=== PATIENT | female | born 1965 | race Caucasian/White ===

== ENCOUNTER 2019-06-02 21:05 | Emergency (ER) | payer OTHER, SELFPAY ==
[2019-06-02] MEDS ORDERED: PANTOPRAZOLE 40 MG INJ ONE (22:27)
[2019-06-02] MEDS ORDERED: NA CHLORIDE 0.9% 1,000 ML ONE (22:27)
[2019-06-02] MEDS ORDERED: ONDANSETRON 4 MG/2 ML VIAL ONE ×2 (22:27→23:23)
[2019-06-02] MEDS ORDERED: MORPHINE 2 MG/ML SYR ONE (22:27)
--- NOTE | 2019-06-02 22:29 | RAD REPORT ---
EXAM DESCRIPTION: RAD - Chest Single View - 06/02/2019 10:04 pm CLINICAL HISTORY: epigastric pain Chest pain. COMPARISON: No comparisons FINDINGS: Portable technique limits examination quality. The lungs are grossly clear. The heart is normal in size. No displaced fractures. IMPRESSION: No acute intrathoracic process suspected.
[2019-06-02 22:38] LABS: Absolute Lymphocytes (CBC) 1.7 K/uL (0.7-4.9); Basophils % 0.7 % (0-1.3); Hematocrit 32.9 % (36.0-45.0); Lymphocytes % 21.7 % (15.3-44.8); MPV 9.9 fL (7.6-11.3); Protime INR 0.96
[2019-06-02] MEDS ORDERED: FENTANYL CITR 100 MCG/2 ML ONE (22:47)
[2019-06-02 22:52] LABS: ALT/SGPT 16 U/L (12-78); AST/SGOT 12 U/L (15-37); Albumin 3.3 g/dL (3.4-5.0); Alkaline Phosphatase 104 U/L (45-117); BUN Blood Urea Nitrogen 21 mg/dL (7-18); Bicarbonate 25 mmol/L (21-32); Bilirubin Direct < 0.1 mg/dL (0-0.2); Bilirubin Total 0.2 mg/dL (0.2-1.0); Glucose Level 120 mg/dL (74-106); Lipase 90 U/L (73-393); Potassium 3.9 mmol/L (3.5-5.1); Protein, Total 6.9 g/dL (6.4-8.2); Sodium Level 142 mmol/L (136-145); Troponin (Emerg Dept Use Only) < 0.02 ng/mL (0.0-0.045)
[2019-06-02] MEDS ORDERED: PROMETHAZINE INJ 25 MG/ML AMP ONE (23:14)
--- NOTE | 2019-06-03 02:05 | ER ---
Nurse's Notes [facility] Name: Kenia Recinos Age: 54 yrs Sex: Female : 1965 Arrival Date: 06/02/2019 Time: 21:07 Bed 3 Private MD: Diagnosis: Nausea and vomiting-intractable;Epigastric pain-intractable;Stomach mass Presentation: 06/01 21:13 Chief complaint: Patient states: Epigastric pain for a long time, years ago. I had a ca1 scope done on 2016 but they just said it was just a little irritation. But today, it started getting worse. Reports vomiting. Denies diarrhea and fever. Coronavirus screen: The patient has NOT traveled to a country currently being monitored by the CDC within the last 14 days. The patient has NOT had contact with any known and/or suspected case of coronavirus. Ebola Screen: Patient negative for fever greater than or equal to 101.5 degrees Fahrenheit, and additional compatible Ebola Virus Disease symptoms Patient denies exposure to infectious person. Patient denies travel to an Ebola-affected area in the 21 days before illness onset. No symptoms or risks identified at this time. Initial Sepsis Screen: Does the patient meet any 2 criteria? No. Patient's initial sepsis screen is negative. Does the patient have a suspected source of infection? No. Patient's initial sepsis screen is negative. Risk Assessment: Do you want to hurt yourself or someone else? Patient reports no desire to harm self or others. Onset of symptoms was June 02, 2019. 21:13 Method Of Arrival: Ambulatory ca1 21:13 Acuity: JAMEEL 3 ca1 Historical: - Allergies: 21:17 Biaxin; ca1 - PSHx: 21:17 Cholecystectomy; Hysterectomy; Gastric Bypass; Knee surgery; ca1 - Immunization history:: Adult Immunizations up to date, Flu vaccine is not up to date. - Social history:: Smoking status: Patient denies any tobacco usage or history of. Screenin/18 03:00 Abuse screen: Denies threats or abuse. Denies injuries from another. Nutritional rv screening: No deficits noted. Tuberculosis screening: No symptoms or risk factors identified. 03:00 Fall Risk None identified. rv Assessment: 06/01 21:30 General: Appears in no apparent distress. uncomfortable, Behavior is calm, cooperative, jb4 appropriate for age. Pain: Complains of pain in epigastric area and left upper quadrant Pain does not radiate. Pain currently is 10 out of 10 on a pain scale. Quality of pain is described as stabbing, Pain began 1 hour ago. Is continuous, Alleviated by laying supine Aggravated by sitting. Neuro: Level of Consciousness is awake, alert, obeys commands, Oriented to person, place, time, situation. Cardiovascular: Patient's skin is warm and dry. Respiratory: Airway is patent Respiratory effort is even, unlabored, Respiratory pattern is regular, symmetrical. GI: Abdomen is round non-distended, Bowel sounds present X 4 quads. Reports upper abdominal pain, nausea. : No signs and/or symptoms were reported regarding the genitourinary system. EENT: No signs and/or symptoms were reported regarding the EENT system. Derm: Skin is intact, Skin is pink, warm \T\ dry. Musculoskeletal: Circulation, motion, and sensation intact. Range of motion: intact in all extremities. 22:40 Reassessment: Patient appears in no apparent distress at this time. Patient and/or jb4 family updated on plan of care and expected duration. Pain level reassessed. Patient is alert, oriented x 3, equal unlabored respirations, skin warm/dry/pink. Pt reports an immediate increase in pain with morphine administration, and worsening of nausea. Provider notified, see MAR for orders. 23:30 Reassessment: Patient appears in no apparent distress at this time. Patient and/or jb4 family updated on plan of care and expected duration. Pain level reassessed. Patient is alert, oriented x 3, equal unlabored respirations, skin warm/dry/pink. Pt reports nausea and pain is unchanged, provider notified, see MAR for orders. 06/02 00:30 Reassessment: Patient appears in no apparent distress at this time. Patient and/or jb4 family updated on plan of care and expected duration. Pain level reassessed. Patient is alert, oriented x 3, equal unlabored respirations, skin warm/dry/pink. 01:30 Reassessment: Patient appears in no apparent distress at this time. Patient and/or jb4 family updated on plan of care and expected duration. Pain level reassessed. Patient is alert, oriented x 3, equal unlabored respirations, skin warm/dry/pink. 02:27 Reassessment: Patient appears in no apparent distress at this time. Patient and/or jb4 family updated on plan of care and expected duration. Pain level reassessed. Pt is resting in bed with eyes closed, respirations are even and unlabored, no s/s of distress noted. 02:45 Reassessment: Report called to Wilma Francis RN \T\ [facility]. jb4 Vital Signs: 06/01 21:13 BP 126 / 83; Pulse 84; Resp 17 S; Temp 98.3(TE); Pulse Ox 99% on R/A; Weight 92.53 kg ca1 (R); Height 5 ft. 7 in. (170.18 cm) (R); 22:00 BP 129 / 89; Pulse 72; Resp 16; Pulse Ox 100% on R/A; rv 22:30 BP 126 / 89; Pulse 67; Resp 16; Pulse Ox 100% on R/A; rv 22:45 BP 154 / 93; Pulse 89; Resp 18; Pulse Ox 100% on R/A; rv 23:32 BP 117 / 76; Pulse 71; Resp 16; Pulse Ox 100% ; Pain 10/10; jb4 18 00:50 BP 111 / 65; Pulse 66; Resp 16; Pulse Ox 100% on R/A; jb4 02:00 BP 128 / 80; Pulse 66; Resp 16; Pulse Ox 99% on R/A; jb4 03:00 BP 123 / 72; Pulse 63; Resp 16; Pulse Ox 100% ; rv 06/01 21:13 Body Mass Index 31.95 (92.53 kg, 170.18 cm) ca1 ED Course: 06/01 21:07 Patient arrived in ED. ag3 21:16 Triage completed. ca1 21:17 Arm band placed on right wrist. ca1 21:24 Stoney Xie PA is PHCP. cp 21:24 Jaime Carrasquillo MD is Attending Physician. cp 21:32 Malachi Barksdale, AURELIANO is Primary Nurse. jb4 22:05 XRAY Chest (1 view) In Process Unspecified. EDMS 22:14 Inserted saline lock: 20 gauge in left antecubital area, using aseptic technique. Blood ar5 collected. 23:28 Radiology exam delayed due to Patient unable to travel to [place] for exam - nauseous. kw1 06/02 00:18 CT Abd/Pelvis - IV Contrast Only In Process Unspecified. EDMS 03:00 Patient has correct armband on for positive identification. Pulse ox on. NIBP on. rv 04:13 No provider procedures requiring assistance completed. IV is patent, with fluids rv infusing freely, with good blood return, Patient transferred, IV remains in place. Administered Medications: 06/01 22:35 Drug: ProTONIX 40 mg Route: IVP; Site: left antecubital; jb4 23:00 Follow up: Response: No adverse reaction jb4 22:36 Drug: NS 0.9% 1000 ml Route: IV; Rate: 1000 ml/hr; Site: left antecubital; jb4 23:30 Follow up: Response: No adverse reaction; IV Status: Completed infusion; IV Intake: jb4 1000ml 22:36 Drug: Zofran (Ondansetron) 4 mg Route: IVP; Site: left antecubital; jb4 23:30 Follow up: Response: No adverse reaction; Nausea unchanged jb4 22:38 Drug: morphine 2 mg Route: IVP; Site: left antecubital; jb4 22:40 Follow up: Response: Pt reported sever increase in pain after medication jb4 administration. Provider notified, see [facility] for orders. 22:47 Drug: fentaNYL (PF) 25 mcg {Note: Rass score 0.} Route: IVP; Site: left antecubital; jb4 23:30 Follow up: Response: No adverse reaction; Pain is unchanged, physician notified jb4 23:32 Drug: Phenergan 25 mg {Note: Added to remaining IV fluids per providers orders..} jb4 Route: IVP; Site: right antecubital; 06/02 00:00 Follow up: Response: No adverse reaction; Nausea is decreased jb4 06/01 23:35 Drug: Zofran (Ondansetron) 4 mg Route: IVP; Site: right antecubital; jb4 06/02 00:00 Follow up: Response: No adverse reaction; Nausea is decreased jb4 06/01 23:38 Drug: fentaNYL (PF) 25 mcg {Note: Rass score 0.} Route: IVP; Site: right antecubital; jb4 06/02 00:00 Follow up: Response: No adverse reaction; Pain is decreased; RASS: Alert and Calm (0) jb4 Intake: 06/01 23:30 IV: 1000ml; Total: 1000ml. jb4 Outcome: 03/18 02:02 ER care complete, transfer ordered by MD. ignacio 04:14 Patient left the ED. jb4 Signatures: Dispatcher [employer] EDMS Stoney Xie PA PA cp Bryson, James RN RN jb4 Hortensia Fernández kw1 Jarred Muro RN RN Clara Ortez3 Yessy Garrison5 Silvia Hurtado RN RN ca1
--- NOTE | 2019-06-03 02:05 | EDPHYS ---
Physician Documentation [facility] Name: Kenia Recinos Age: 54 yrs Sex: Female : 1965 Arrival Date: 06/02/2019 Time: 21:07 Bed 3 Private MD: ED Physician Jaime Carrasquillo HPI: 06/01 21:45 This 54 yrs old Female presents to ER via Ambulatory with complaints of cp Vomiting. 21:45 The patient presents with abdominal pain in the epigastric area. cp 21:45 Onset: The symptoms/episode began/occurred 3 year(s) ago, and became worse today. The cp patient presents to the emergency department with nausea, with "dry heaves", vomiting, that is continuous. Onset: The symptoms/episode began/occurred today. Possible causes: unknown. Historical: - Allergies: : Biaxin; ca1 - PSHx: 21:17 Cholecystectomy; Hysterectomy; Gastric Bypass; Knee surgery; ca1 - Immunization history:: Adult Immunizations up to date, Flu vaccine is not up to date. - Social history:: Smoking status: Patient denies any tobacco usage or history of. ROS: 21:55 Constitutional: Positive for poor PO intake, Negative for body aches, chills, fever. cp 21:55 Eyes: Negative for injury, pain, redness, and discharge. cp 21:55 ENT: Negative for drainage from ear(s), ear pain, sore throat, difficulty swallowing, difficulty handling secretions. 21:55 Cardiovascular: Negative for chest pain, palpitations. 21:55 Respiratory: Negative for cough, shortness of breath, wheezing. 21:55 Abdomen/GI: Positive for abdominal pain, nausea and vomiting, Negative for hematemesis, black/tarry stool, rectal bleeding. 21:55 Back: Negative for pain at rest, pain with movement, radiated pain. 21:55 : Negative for urinary symptoms. 21:55 Skin: Negative for rash. 21:55 Neuro: Negative for altered mental status, headache, syncope, weakness. 21:55 All other systems are negative. Exam: 21:30 ECG was reviewed by the Attending Physician. cp 22:00 Constitutional: The patient appears alert, awake, non-diaphoretic, non-toxic, well cp developed, well nourished, in obvious pain, uncomfortable. 22:00 Head/Face: Normocephalic, atraumatic. cp 22:00 Eyes: Periorbital structures: appear normal, Conjunctiva: normal, no exudate, no injection, Sclera: no appreciated abnormality, Lids and lashes: appear normal, bilaterally. 22:00 ENT: External ear(s): are unremarkable, Nose: is normal, Mouth: Lips: moist, Oral mucosa: pink and intact, moist, Posterior pharynx: is normal, airway is patent, no erythema, no exudate. 22:00 Chest/axilla: Inspection: normal, Palpation: is normal, no crepitus, no tenderness. 22:00 Cardiovascular: Rate: normal, Rhythm: regular, Edema: is not appreciated, JVD: is not appreciated. 22:00 Respiratory: the patient does not display signs of respiratory distress, Respirations: normal, no use of accessory muscles, no retractions, no splinting, no tachypnea, labored breathing, is not present, Breath sounds: are clear throughout, no decreased breath sounds, no stridor, no wheezing. 22:00 Abdomen/GI: Inspection: abdomen appears normal, Bowel sounds: active, all quadrants, Palpation: soft, in all quadrants, severe abdominal tenderness, in the epigastric area, rebound tenderness, is not appreciated, voluntary guarding, is elicited in the epigastric area. 22:00 Back: pain, is absent. 22:00 Skin: no rash present. 22:00 Neuro: Orientation: to person, place \\T\\ time. Mentation: is normal. Vital Signs: 21:13 BP 126 / 83; Pulse 84; Resp 17 S; Temp 98.3(TE); Pulse Ox 99% on R/A; Weight 92.53 kg ca1 (R); Height 5 ft. 7 in. (170.18 cm) (R); 22:00 BP 129 / 89; Pulse 72; Resp 16; Pulse Ox 100% on R/A; rv 22:30 BP 126 / 89; Pulse 67; Resp 16; Pulse Ox 100% on R/A; rv 22:45 BP 154 / 93; Pulse 89; Resp 18; Pulse Ox 100% on R/A; rv 23:32 BP 117 / 76; Pulse 71; Resp 16; Pulse Ox 100% ; Pain 10/10; jb4 06/02 00:50 BP 111 / 65; Pulse 66; Resp 16; Pulse Ox 100% on R/A; jb4 02:00 BP 128 / 80; Pulse 66; Resp 16; Pulse Ox 99% on R/A; jb4 03:00 BP 123 / 72; Pulse 63; Resp 16; Pulse Ox 100% ; rv 06/01 21:13 Body Mass Index 31.95 (92.53 kg, 170.18 cm) ca1 MDM: 06/01 21:32 Patient medically screened. 06/02 01:30 Data reviewed: vital signs, nurses notes, lab test result(s), radiologic studies, CT cp scan, plain films, I have discussed the patient's presentation/case with the attending Emergency Department Physician;. 01:30 Test interpretation: by ED physician or midlevel provider: ECG. Response to treatment: the patient's symptoms have markedly improved after treatment. 06/01 21:41 Order name: Basic Metabolic Panel; Complete Time: 23:19 06/02 00:03 Interpretation: Normal except: CL 110; GLUC 120; BUN 21; GFR 72. 06/01 21:41 Order name: CBC with Diff; Complete Time: 23:19 06/02 00:03 Interpretation: Normal except: HGB 10.9; HCT 32.9; MCV 82.2; MCH 27.2. 06/01 21:41 Order name: LFT's; Complete Time: 23:19 06/02 00:03 Interpretation: Normal except: AST 12; ALB 3.3; GLOB 3.6; A/G 0.9. 06/01 21:41 Order name: Magnesium; Complete Time: 23:19 06/01 21:41 Order name: PT-INR; Complete Time: 23:19 06/01 21:41 Order name: Troponin (emerg Dept Use Only); Complete Time: 23:19 06/02 00:04 Interpretation: Within normal limits: TROPED < 0.02. 06/01 21:41 Order name: XRAY Chest (1 view); Complete Time: 23:19 06/02 00:04 Interpretation: Report review. 06/01 21:41 Order name: Lipase; Complete Time: 23:19 06/02 00:05 Interpretation: Reviewed. 06/01 21:43 Order name: CT Abd/Pelvis - IV Contrast Only 06/01 21:41 Order name: EKG; Complete Time: 21:41 cp 06/01 21:41 Order name: Cardiac monitoring; Complete Time: 21:49 cp 06/01 21:41 Order name: EKG - Nurse/Tech; Complete Time: 21:49 cp 06/01 21:41 Order name: IV Saline Lock; Complete Time: 22:15 cp 06/01 21:41 Order name: Labs collected and sent; Complete Time: 22:15 cp 06/01 21:41 Order name: O2 Per Protocol; Complete Time: 21:49 cp 06/01 21:41 Order name: O2 Sat Monitoring; Complete Time: 21:49 cp EC/17 21:30 Rate is 73 beats/min. Rhythm is regular. WI interval is normal. QRS interval is normal. cp QT interval is normal. T waves are Flattened in lead aVL. Interpreted by me. Reviewed by me. Administered Medications: 22:35 Drug: ProTONIX 40 mg Route: IVP; Site: left antecubital; [facility] 23:00 Follow up: Response: No adverse reaction [facility] 22:36 Drug: NS 0.9% 1000 ml Route: IV; Rate: 1000 ml/hr; Site: left antecubital; [facility] 23:30 Follow up: Response: No adverse reaction; IV Status: Completed infusion; IV Intake: jb4 1000ml 22:36 Drug: Zofran (Ondansetron) 4 mg Route: IVP; Site: left antecubital; [facility] 23:30 Follow up: Response: No adverse reaction; Nausea unchanged jb4 22:38 Drug: morphine 2 mg Route: IVP; Site: left antecubital; [facility] 22:40 Follow up: Response: Pt reported sever increase in pain after medication jb4 administration. Provider notified, see MAR for orders. 22:47 Drug: fentaNYL (PF) 25 mcg {Note: Rass score 0.} Route: IVP; Site: left antecubital; [facility] 23:30 Follow up: Response: No adverse reaction; Pain is unchanged, physician notified [facility] 23:32 Drug: Phenergan 25 mg {Note: Added to remaining IV fluids per providers orders..} jb4 Route: IVP; Site: right antecubital; 06/02 00:00 Follow up: Response: No adverse reaction; Nausea is decreased [facility] 06/01 23:35 Drug: Zofran (Ondansetron) 4 mg Route: IVP; Site: right antecubital; 4 06/02 00:00 Follow up: Response: No adverse reaction; Nausea is decreased [facility] 06/01 23:38 Drug: fentaNYL (PF) 25 mcg {Note: Rass score 0.} Route: IVP; Site: right antecubital; 4 06/02 00:00 Follow up: Response: No adverse reaction; Pain is decreased; RASS: Alert and Calm (0) 4 Disposition: 05:02 Co-signature as Attending Physician, Jaime Carrasquillo MD I agree with the assessment and 4 plan of care. Disposition: 06/03/19 02:02 Transfer ordered to [facility]. Diagnosis are Nausea and vomiting - intractable, Epigastric pain - intractable, Stomach mass. - Reason for transfer: Higher level of care. - Accepting physician is DR Mosley. - Condition is Stable. - Problem is new. - Symptoms have improved. Signatures: Dispatcher [employer] EDMS Stoney Xie PA PA cp Malachi Barksdale, RN RN 4 Jaime Carrasquillo MD MD 4 Silvia Hurtado RN RN ca1 Corrections: (The following items were deleted from the chart) 04:14 02:02 06/03/2019 02:02 Transfer ordered to [facility]. jb4 Diagnosis is Nausea and vomiting - intractable; Epigastric pain - intractable; Stomach mass. Reason for transfer: Higher level of care. Accepting physician is DR Mosley. Condition is Stable. Problem is new. Symptoms have improved. cp
[2019-06-03 04:21] VITALS: TEMP 98.3
[2019-06-03 04:31] VITALS: BP 123/72; O2SAT 100
--- NOTE | 2019-06-03 08:49 | EKG ---
Test Date: 2019-06-02 Test Time: 21:28:15 [employer] Rib[employer] Machine Operator: COLLIN MEASUREMENT RESULTS: Intervals: Rate: 73 MI: 124 QRSD: 84 QT: 400 QTc: 440 [place]: P: 54 MI: 124 QRS: 38 T: 63 INTERPRETIVE STATEMENTS: Normal sinus rhythm Normal ECG No previous ECG available for comparison Electronically Signed On 06-03-19 08:48:27 CDT by Jed Dillon
--- NOTE | 2019-06-03 11:46 | RAD REPORT ---
EXAM DESCRIPTION: CT abdomen and pelvis with IV contrast CLINICAL HISTORY: 54-year-old female with epigastric pain, vomiting, prior cholecystectomy, hysterec ilsa and gastric bypass surgery. TECHNIQUE: Axial CT imaging of the abdomen and pelvis was performed following the administration of intravenous contrast.. Sagittal and coronal reconstructed images were then performed. The CT stud y is performed according to ALARA (as low as reasonably achievable) or ALARA/IMAGE GENTLY, with autom atic adjustment of mA and/or kV according to patient size. Performed on: 06/02/2019 11:52 PM. COMPARISON: None FINDINGS: Lung bases: The lung bases are clear. There is eventration of the right hemidiaphragm. Liver: The liver is enlarged and measures approximately 21 cm in craniocaudal dimension. No focal hep atic abnormalities are identified. Liver attenuation is within normal limits. Spleen: The spleen is normal is size, configuration and attenuation. Gallbladder and bile duct: The gallbladder is surgically absent. There is no biliary ductal dilatat ion. Pancreas: The pancreas is grossly normal in size and configuration. Adrenal Glands: The adrenal glands are normal in size and configuration. Kidneys: The kidneys are normal in size and configuration. There is no evidence of hydronephrosis. Th ere is no evidence of nephrolithiasis. No definite solid or cystic renal mass lesions are identified. Stomach: There are postsurgical changes of the stomach consistent with prior gastric bypass surgery. There is a large, slightly heterogeneous relatively well-circumscribed soft tissue mass in the region of the body of the stomach measuring approximately 12.9 x 7.3 x 10.5 cm suspicious for a neoplasm hess ch as a gastrointestinal stromal tumor or other gastric carcinoma. A leiomyoma is a consideration. Th ere is no definite hiatal hernia. Bowel: The bowel gas pattern is non specific and non obstructive. Appendix: The appendix is normal. Free air: There is no evidence of free air. Free fluid: There is no evidence of free fluid. Vasculature: The aorta is normal in caliber and contour. The inferior vena cava is grossly unremarkab le. Lymphadenopathy: No pathologic lymphadenopathy is identified. Bladder: The bladder is well distended and smooth in contour. Reproductive: The uterus is surgically absent. Bones: No acute osseous abnormalities are identified. Soft tissues: No focal soft tissue abnormalities are identified. IMPRESSION: 1. Large, slightly heterogeneous relatively well circumscribed soft tissue mass in the r egion of the body of the stomach concerning for a gastric neoplasm such as a gastrointestinal stromal tumor, gastric carcinoma, lymphoma or leiomyoma. 2. Prior gastric bypass surgery, cholecystectomy and hysterectomy. 3. Hepatomegaly with eventration of the right hemidiaphragm. These findings were discussed with SURENDRA Mendez on 06/03/2019 at 12: 21 AM central time Electronically signed by: Kaycee Cuevas DO 06/03/2019 12:33 AM CDT Due to temporary technical issues with the PACS/Fluency reporting system, reports are being signed by the in house radiologist as a courtesy to ensure prompt reporting. The interpreting radiologist is f ully responsible for the content of the report.
== END 2019-06-03 04:14 | disposition short-term general hospital (02) ==
LOC: ER 21:05
DX: R10.13 Epigastric pain (principal); K31.9 Disease of stomach and duodenum, unspecified; Z88.6 Allergy status to analgesic agent
CPT/HCPCS: 96361; 93005; 85025; 80048; 36415; 83735; 85610; 80076; 84484; 83690; 74177; 71045; 96375; 96374; 99284; Q9967; J2550; C9113; J3010; J2270; J7030; J2405 ×2

== ENCOUNTER 2021-02-01 06:10 | Observation (INO) | payer OTHER ==
--- NOTE | 2021-01-27 09:26 | RAD REPORT ---
EXAM DESCRIPTION: RAD - Chest Pa And Lat (2 Views) - 01/27/2021 8:55 am CLINICAL HISTORY: Pre Op pending knee replacement COMPARISON: May 2019 TECHNIQUE: Frontal and lateral views of the chest were obtained. FINDINGS: The lungs are clear. Interstitial pattern matches the comparison study. No new hilar mass or lymphadenopathy seen. Heart size is normal and central vasculature is within normal limits. No p leural effusion or pneumothorax seen. No acute bony finding noted. No aortic abnormality. IMPRESSION: No acute cardiopulmonary process. No significant change from comparison study.
[2021-01-27 09:45] LABS: Protime INR 0.89
[2021-01-27 09:57] LABS: Potassium 4.4 mmol/L (3.5-5.1)
[2021-01-27 16:50] LABS: Absolute Lymphocytes (CBC) 1.4 K/uL (0.7-4.9); Basophils % 1.1 % (0-1.3); Hematocrit 41.1 % (36.0-45.0); Lymphocytes % 36.5 % (15.3-44.8); MPV 9.7 fL (7.6-11.3); RBC Red Blood Cell Count 4.64 M/uL (3.86-4.86)
[2021-02-01] MEDS ORDERED: Ringers Lactate 1,000 ML IV ONE ×2 (06:26→08:17)
[2021-02-01] MEDS ORDERED: CEFAZOLIN/SWI 2gm 2 GM/20 ML SYR ONE (06:26)
[2021-02-01] MEDS ORDERED: propofoL 200 MG/20 ML VIAL IV ONE (06:29)
[2021-02-01] MEDS ORDERED: KETOROLAC 30 MG/ML INJ ONE (06:29)
[2021-02-01] MEDS ORDERED: LIDOCAINE 2% MPF 5 ML VIAL ONE (06:29)
[2021-02-01] MEDS ORDERED: ROCURONIUM 50 MG/5 ML VIAL IV ONE (06:29)
[2021-02-01] MEDS ORDERED: dexAMETHasone 10 MG/ML VIAL ONE ×2 (06:29→08:52)
[2021-02-01] MEDS ORDERED: KETAMINE HCL 500 MG/5 ML VIAL ONE (06:29)
[2021-02-01] MEDS ORDERED: ONDANSETRON 4 MG/2 ML VIAL ONE (06:30)
[2021-02-01] MEDS ORDERED: GABAPENTIN 100 MG CAP ONE (06:44)
[2021-02-01] MEDS ORDERED: Oxycodone HCl/Acetaminophen 1 TAB TAB ONE (06:45)
[2021-02-01] MEDS ORDERED: ACETAMINOPHEN 500 MG TAB ONE (06:45)
[2021-02-01] MEDS ORDERED: BUPIVACA 0.5%/EPI 0.0005%/PF 30 ML VIAL ONE (07:09)
[2021-02-01] MEDS ORDERED: TRANEXAMIC ACID 1,000 MG in NA CHLORIDE 0.9% 50 ML IV ONE (08:00)
[2021-02-01] MEDS ORDERED: LIDOCAINE 1% MPF 5 ML VIAL ONE (08:52)
[2021-02-01] MEDS ORDERED: MIDAZOLAM HCL 2 MG/2 ML INJ ONE (08:52)
[2021-02-01] MEDS ORDERED: FENTANYL CITR 100 MCG/2 ML ONE (08:52)
[2021-02-01] MEDS ORDERED: BUPIVACAINE 0.25% PF 30 ML VIAL ONE (08:52)
[2021-02-01] MEDS ORDERED: HYDROMORPHONE HCL 1 MG/ML INJ ONE (08:52)
[2021-02-01] MEDS ORDERED: NS 0.9% VIAL 10 ML ONE (08:52)
[2021-02-01] MEDS ORDERED: NEOSTIGMINE 1 MG/ML -5 ML ONE (09:27)
[2021-02-01] MEDS ORDERED: GLYCOPYRROLATE 0.2 MG/ML SYR ONE (09:27)
--- NOTE | 2021-02-01 10:26 | P.BOP ---
Preoperative diagnosis: left knee osteoarthritis Postoperative diagnosis: same Primary procedure: left total knee arthroplasty Assistant Professor Of English: NONE,NONE Estimated blood loss: 20 cc Specimen: left knee bone remnants Findings: see dictation Anesthesia: General Complications: None Implants: [employer] Annette Persona 10 CR femur, F stemmed tibia, 10 CR poly, 32 patella Fluids & blood products: per anesthesia record; TT: 90 mins @ 300 mmHg Transferred to: Recovery Room Condition: Good
[2021-02-01] MEDS ORDERED: ONDANSETRON 4 MG/2 ML VIAL IV PRN (10:27)
[2021-02-01] MEDS ORDERED: DOCUSATE NA 100 MG CAP PO PRN (10:27)
[2021-02-01] MEDS ORDERED: TRAMADOL HCL 50 MG TAB PO PRN (10:30)
--- NOTE | 2021-02-01 10:56 | RAD REPORT ---
EXAM DESCRIPTION: RAD - Knee Left 2 View - 02/01/2021 10:47 am CLINICAL HISTORY: Post Op COMPARISON: No comparisons FINDINGS: Left knee arthroplasty. Small volume of fluid within the knee joint which is not unexpecte d. Surgical clips overlie the knee. No evidence of immediate hardware complications. IMPRESSION: Left total knee arthroplasty without evidence of immediate hardware complications.
[2021-02-01 11:05] LABS: Hematocrit 39.3 % (36.0-45.0)
--- OUTSIDE RECORDS SUMMARY | 2021-02-01 11:20 | XMS REPORT | Continuity of Care Document ---
:1965 Author Organization [facility] t Address [address] [place] [address] Care Team Providers Name Role Phone Vj Olson MD, [place] Primary Care Physician [phone] Sylvie Velazquez Attending Clinician Unavailable Bren CERON Attending Clinician Unavailable Physician, Primary or Family Admitting Clinician UnavailANA MARIA Merino Admitting Clinician Unavailable Payers Payer Name Policy Type Policy Number Effective Date Expiration Date S ource Problems Condition Condition Condition Status Onset Resolution Last Treating Co mments Source Name Details Category Date Date Treatment Clinician Date Acute Acute Disease Active [facility] upper GI [facility] GI 3-24 [facility] bleed bleed [facility] 00 Center Acute on Acute on Disease Active [facility] chronic [facility] - blood loss blood loss 00:00: Me dical anemia anemia 00 Center Severe Severe Disease Active [facility] protein-ca protein-ca 3-24 [facility] - maciej maciej 00:00: Medical malnutriti malnutriti 00 Ce nter on ([place]: on ([place]: less than less than 60% of 60% of standard standard weight) weight) Gastric Gastric Disease Active [facility] mass mass 3-18 [facility] - 00:[facility]: Medical 00 Center Normochrom Normochrom Disease Active [facility] ic ic 3-18 [facility] - normocytic normocytic 00:00: Me dical anemia anemia 00 Center Allergies, Adverse Reactions, Alerts Allergy Allergy Status Severity Reaction(s) Onset Inactive Treating Comm ents Source Name Type Date Date Clinician No Known DA Active [facility]08 [facility] 00:[facility]: [address] No Known DA Active [facility]ie 12[facility]08 [facility] 00:[facility]: [address] Clarithr Propensi Active Hiv Pt stated [facility] omycin ty to 18 she gets [facility] - adverse 00:00: blotches Medical reaction 00 and they Center s itch CLARITHR Allergy Active Hives [facility] OMYCIN 3-18 [facility] - 00:[facility]: Medical Center BIOXAN Adverse Active Info Not [facility] Reaction Available [facility] Family History Family Member Diagnosis Comments Start Date Stop Date Source Natural father Cancer [facility] Natural mother Hypertension [facility] Natural mother Kidney disease [facility] Natural mother Stroke [facility] Social History Social Habit Start Date Stop Date Quantity Comments Source History SDOH [facility] - Alcohol Frequency Medical Center History SDOH [facility] - Alcohol Std Drinks Medica Center History SDOH [facility] - Alcohol Binge Medical Chyna ter Alcohol intake 2019-06-10 2019-06-10 [facility]:00 of alcohol Medical Center (finding) Tobacco use and 2019-06-03 2019-06-[address] [facility] - exposure 00:00:00 00:00:00 [facility] Alcohol Comment 2019-06-03 2019-06-03 social drinker [facility]00 Medical Center Sex Assigned At [address] [facility] - 00:00:00 00:00:00 Medical Center Smoking Status Start Date Stop Date Source Never sm[facility] ed[facility] Center Medications Ordered Filled Start Stop Current Ordering Indication Dosage Frequency Signature Comments Components Source Medication Medication Date Date Medication? Clinician (SIG) Name Name traMADoL 0 Yes 50mg Take [address] (ULTRAM) 50 2-28 by mouth 3 [facility] - mg tablet 00:00: (three) Medic al 00 times Center daily as needed for Pain. phentermine 2019-0 Yes 37.5mg QD Take 37.[address] (ADIPEX-P) 1-16 mg by [facility] - 37.5 mg 00:00: mouth Medical tablet 00 daily. Center Tramadol Tramadol Yes Mikey not [facility] HCl HCl Nelson defined [facility] PrednisoLON PrednisoLON Yes Mikey not [facility] Nelson defined [facility] Immunizations Ordered Immunization Filled Immunization Date Status Commen ts Source Name Name Influenza Four-QIV 2019-06-[address] [facility] - PF 3YR+ ([id number]) 00:00:00 Medical Center Procedures This patient has no known procedures. Plan of Care Planned Activity Planned Date Details Comments Source Future Scheduled 2022-06-[address] [facility] - Test 00:00:00 (procedure) [code = [facility] 51139049] Future Scheduled 2020-11-[address] [facility] - Test 00:00:00 (#1) [code = [facility] INFLUENZA VACCINE (#1)] Future Scheduled 2020-03-[address] [facility] - Test 00:00:00 (12+) [code = [facility] DEPRESSION SCREENING (12+)] Future Scheduled 2013 SHINGLES VACCINES ([address] [facility] - Test 00:00:00 of 2) [code = [facility] SHINGLES VACCINES (1 of 2)] Future Scheduled [address] [facility] - Test 00:00:00 malignant neoplasm of Medica l Center cervix (procedure) [code = 364010004] Future Scheduled 1982 DTAP/TDAP/TD VACCINES [facility] - Test 00:00:00 (1 - Tdap) [code = Medical C enter DTAP/TDAP/TD VACCINES (1 - Tdap)] Future Scheduled 1981 HEPATITIS C SCRE[facility]ING [facility] Test 00:00:00 [code = HEPATITIS C [facility] SCREENING] Future Scheduled 1975 COVID-19 VACCINE (1) [facility] - Test 00:00:00 [code = COVID-[address] VACCINE (1)] Future Scheduled [address] [facility] - Test 00:00:00 [facility] breast (procedure) [code = 688208039] Future Scheduled [address] [facility] es - Test 00:00:00 malignant neoplasm of [facility] colon (procedure) [code = 251524814] Encounters Start End Encounter Admission Attending Care Care Encounter Source Date/Time Date/Time Type Type Clinicians Facility Department ID 2020-12-09 Inpatient JJ Edward SUGL [id number] [facility] 08:45:00 [place] [address] [facility] 2021-01-27 2021-01-27 ambulatory [facility]LMLC [facility] [id number] [facility] 2021-01-26 2021-01-26 ambulatory STLMLC [facility] [id number] [facility] 2020-12-12 2020-12-12 ambulatory [facility]LMLC [facility] [id number] [facility] 2020-12-09 2020-12-09 Outpatient JJ Edward SUGL [id number] [facility] 08:21:00 08:21:00 Ta 95 [facility] 2020-11-16 2020-11-16 Outpatient STLMLC [facility]LMLC [id number] [facility] 2020-11-10 2020-11-10 Outpatient STLMLC [facility] [id number] [facility] 2020-11-04 2020-11-04 Inpatient JJ Edward SUGL [id number] [facility] 08:00:00 08:00:00 Ta [address] [facility] 2020-09-212020-09-21 Outpatient STLC [facility] [id number] [facility] 2020-08-09 2020-08-09 [facility] [id number] 2020-08-09 2020-08-09 [facility] [id number] 2020-08-09 2020-08-09 [facility] [id number] [facility] 2020-07-28 2020-07-28 [facility] [id number] [facility] 2019-10-08 2019-10-08 [facility] [id number] 08:00:00 08:00:00 [facility] 2019-06-03 2019-06-03 Outpatient [facility] [id number] [facility] 04:29:00 04:29:00 [id number] Results Test Description Test Time Test Comments Results Result [facility] e Comments - NM MYOCRD SPECT 2020-12-13 R/S [facility] 14:12:00 [facility] 1965 Sex: F Patient Name: AURELIA MORFIN Unit No: [id number] EXAMS: CPT CODE: [id number] NM MYOCRD SPECT R/S [facility] [id number] INDICATION: CAD. The patient underwent myocardial perfusion imaging utilizing IV injection of 9.97 mCi Tc99M Cardiolite at rest and IV injection of 33 mCi Tc99M Cardiolite at peak stress. SPECT imaging was obtained at rest and stress. Gated SPECT imaging was obtained at stress. Regadenoson protocol was utilized for stress. FINDINGS: There is no significant perfusion defect. CONCLUSIONS: 1. NORMAL REGADENOSON TECHNETIUM 99 CARDIOLITE SHOWING NORMAL PERFUSION. 2. GATED PERFUSION IMAGING SHOWS NORMAL LEFT VENTRICULAR SIZE AND SYSTOLIC FUNCTION WITH NORMAL WALL MOTION. END-DIASTOLIC VOLUME IS 62 mL, END-SYSTOLIC VOLUME IS 20 mL, AND THE EJECTION FRACTION IS 68 %. at 1412 Reported and signed by: Ta Velazquez M.D. CC: Mook AGOSTO; Ta Velazquez Technologist: Peggy Rowland RT(N) Transcrpt Date/Tm/Trnsp: 12/13/2020 (1412) Sergei Orig Print D/T: S: 12/13/2020 ([id number]) [facility] NAME: AURELIA MORFIN [id number] [address] PHYS: [place] [address] : 1965 AGE: 55 SEX: F LOC: ROLANDOUC PHONE #: [phone] EXAM DATE: 12/09/2020 STATUS: DEP CLI FAX #: [phone] RADIOLOGY NO: PAGE 1 Signed Report PHOSPHORUS 2019-06-14 05:44:00 Test Item Value Reference Range Interpretation Comme nts PHOSPHORUS (BEAKER) (test code = 604) 4.7 mg/dL 2.3-4.7 Audio Visual Coordinator ID - BEKA [id number] 05:44:00 Test Item Value Reference Range Interpretation Comments MAGNESIUM (BEAKER) (test code = 2.0 mg/dL 1.6-2.6 627) Audio Visual Coordinator ID - BEKA MBASIC METABOLIC [id number] 05:44:00 Test Item Value Reference Range Interpretation Comments SODIUM (BEAKER) 140 meq/L 136-145 (test code = 381) POTASSIUM (BEAKER) 4.7 meq/L 3.5-5.1 (test code = 379) CHLORIDE (BEAKER) 109 meq/L 98-107 H (test code = 382) CO2 (BEAKER) (test 25 meq/L 22-29 code = 355) BLOOD UREA NITROGEN 6 mg/dL 7-21 L (BEAKER) (test code = 354) CREATININE (BEAKER) 0.74 mg/dL 0.57-1.25 (test code = 358) GLUCOSE RANDOM 93 mg/dL 70-105 (BEAKER) (test code = 652) CALCIUM (BEAKER) 8.9 mg/dL 8.4-10.2 (test code = 697) EGFR (BEAKER) (test 81 mL/min/1.73 ESTIMA CRYSTAL GFR IS code = 1092) sq m NOT ACCURATE CREATININE CLEARANCE IN PREDICTING GLOMERULAR FILTRATION RATE . ESTIMATED GFR I S NOT APPLICABLE FOR DIALYSIS PATIEN TS. Audio Visual Coordinator ID - BEKA MCBC W/PLT COUNT & AUTO [id number] 04:57:00 Test Item Value Reference Range Interpretation Comments WHITE BLOOD CELL COUNT (BEAKER) 3.0 K/ L 3.5-10.5 L (test code = 775) RED BLOOD CELL COUNT (BEAKER) 2.98 M/ L 3.93-5.22 L (test code = 761) HEMOGLOBIN (BEAKER) (test code = 8.0 GM/DL 11.2-15.7 L 410) HEMATOCRIT (BEAKER) (test code = 26.0 % 34.1-44.9 L 411) MEAN CORPUSCULAR VOLUME (BEAKER) 87.2 fL 79.4-94.8 (test code = 753) MEAN CORPUSCULAR HEMOGLOBIN 26.8 pg 25.6-32.2 (BEAKER) (test code = 751) MEAN CORPUSCULAR HEMOGLOBIN CONC 30.8 GM/DL 32.2-35.5 L (BEAKER) (test code = 752) RED CELL DISTRIBUTION WIDTH 14.6 % 11.7-14.4 H (BEAKER) (test code = 412) PLATELET COUNT (BEAKER) (test 221 K/CU MM 150-450 code = 756) MEAN PLATELET VOLUME (BEAKER) 11.2 fL 9.4-12.3 (test code = 754) NUCLEATED RED BLOOD CELLS 0 /100 WBC 0-0 (BEAKER) (test code = 413) NEUTROPHILS RELATIVE PERCENT 57 % (BEAKER) (test code = 429) LYMPHOCYTES RELATIVE PERCENT 28 % (BEAKER) (test code = 430) MONOCYTES RELATIVE PERCENT 7 % (BEAKER) (test code = 431) EOSINOPHILS RELATIVE PERCENT 6 % (BEAKER) (test code = 432) BASOPHILS RELATIVE PERCENT 1 % (BEAKER) (test code = 437) NEUTROPHILS ABSOLUTE COUNT 1.69 K/ L 1.56-6.13 (BEAKER) (test code = 670) LYMPHOCYTES ABSOLUTE COUNT 0.84 K/ L 1.18-3.74 L (BEAKER) (test code = 414) MONOCYTES ABSOLUTE COUNT (BEAKER) 0.21 K/ L 0.24-0.36 L (test code = 415) EOSINOPHILS ABSOLUTE COUNT 0.19 K/ L 0.04-0.36 (BEAKER) (test code = 416) BASOPHILS ABSOLUTE COUNT (BEAKER) 0.02 K/ L 0.01-0.08 (test code = 417) IMMATURE GRANULOCYTES-RELATIVE 0 % 0-1 PERCENT (BEAKER) (test code = 2801) BASIC METABOLIC [id number] 05:16:00 Test Item Value Reference Range Interpretation Comments SODIUM (BEAKER) 140 meq/L 136-145 (test code = 381) POTASSIUM (BEAKER) 4.4 meq/L 3.5-5.1 (test code = 379) CHLORIDE (BEAKER) 108 meq/L 98-107 H (test code = 382) CO2 (BEAKER) (test 27 meq/L 22-29 code = 355) BLOOD UREA NITROGEN 8 mg/dL 7-21 (BEAKER) (test code = 354) CREATININE (BEAKER) 0.70 mg/dL 0.57-1.25 (test code = 358) GLUCOSE RANDOM 98 mg/dL 70-105 (BEAKER) (test code = 652) CALCIUM (BEAKER) 8.8 mg/dL 8.4-10.2 (test code = 697) EGFR (BEAKER) (test 87 mL/min/1.73 ESTIMA CRYSTAL GFR IS code = 1092) sq m NOT ACCURATE CREATININE CLEARANCE IN PREDICTING GLOMERULAR FILTRATION RATE . ESTIMATED GFR I S NOT APPLICABLE FOR DIALYSIS PATIEN TS. Audio Visual Coordinator ID - KATHY [id number] 05:16:00 Test Item Value Reference Range Interpretation Comments PHOSPHORUS (BEAKER) (test code = 4.5 mg/dL 2.3-4.7 604) Audio Visual Coordinator ID - KATHY [id number] 05:16:00 Test Item Value Reference Range Interpretation Comments MAGNESIUM (BEAKER) (test code = 2.1 mg/dL 1.6-2.6 627) Audio Visual Coordinator ID - KATHY LCBC W/PLT COUNT & AUTO [id number] 04:31:00 Test Item Value Reference Range Interpretation Comments WHITE BLOOD CELL COUNT (BEAKER) 2.8 K/ L 3.5-10.5 L (test code = 775) RED BLOOD CELL COUNT (BEAKER) 2.84 M/ L 3.93-5.22 L (test code = 761) HEMOGLOBIN (BEAKER) (test code = 7.9 GM/DL 11.2-15.7 L 410) HEMATOCRIT (BEAKER) (test code = 24.7 % 34.1-44.9 L 411) MEAN CORPUSCULAR VOLUME (BEAKER) 87.0 fL 79.4-94.8 (test code = 753) MEAN CORPUSCULAR HEMOGLOBIN 27.8 pg 25.6-32.2 (BEAKER) (test code = 751) MEAN CORPUSCULAR HEMOGLOBIN CONC 32.0 GM/DL 32.2-35.5 L (BEAKER) (test code = 752) RED CELL DISTRIBUTION WIDTH 14.3 % 11.7-14.4 (BEAKER) (test code = 412) PLATELET COUNT (BEAKER) (test 201 K/CU MM 150-450 code = 756) MEAN PLATELET VOLUME (BEAKER) 11.3 fL 9.4-12.3 (test code = 754) NUCLEATED RED BLOOD CELLS 0 /100 WBC 0-0 (BEAKER) (test code = 413) NEUTROPHILS RELATIVE PERCENT 47 % (BEAKER) (test code = 429) LYMPHOCYTES RELATIVE PERCENT 36 % (BEAKER) (test code = 430) MONOCYTES RELATIVE PERCENT 9 % (BEAKER) (test code = 431) EOSINOPHILS RELATIVE PERCENT 8 % (BEAKER) (test code = 432) BASOPHILS RELATIVE PERCENT 1 % (BEAKER) (test code = 437) NEUTROPHILS ABSOLUTE COUNT 1.29 K/ L 1.56-6.13 L (BEAKER) (test code = 670) LYMPHOCYTES ABSOLUTE COUNT 1.00 K/ L 1.18-3.74 L (BEAKER) (test code = 414) MONOCYTES ABSOLUTE COUNT (BEAKER) 0.24 K/ L 0.24-0.36 (test code = 415) EOSINOPHILS ABSOLUTE COUNT 0.21 K/ L 0.04-0.36 (BEAKER) (test code = 416) BASOPHILS ABSOLUTE COUNT (BEAKER) 0.02 K/ L 0.01-0.08 (test code = 417) IMMATURE GRANULOCYTES-RELATIVE 0 % 0-1 PERCENT (BEAKER) (test code = 2801) [id number] 05:31:00 Test Item Value Reference Range Interpretation Comments PHOSPHORUS (BEAKER) (test code = 3.2 mg/dL 2.3-4.7 604) Audio Visual Coordinator ID - PIAYA [id number] 05:31:00 Test Item Value Reference Range Interpretation Comments MAGNESIUM (BEAKER) (test code = 2.0 mg/dL 1.6-2.6 627) Audio Visual Coordinator ID - PIAYA LBASIC METABOLIC [id number] 05:31:00 Test Item Value Reference Range Interpretation Comments SODIUM (BEAKER) 138 meq/L 136-145 (test code = 381) POTASSIUM (BEAKER) 3.9 meq/L 3.5-5.1 (test code = 379) CHLORIDE (BEAKER) 106 meq/L 98-107 (test code = 382) CO2 (BEAKER) (test 26 meq/L 22-29 code = 355) BLOOD UREA NITROGEN 8 mg/dL 7-21 (BEAKER) (test code = 354) CREATININE (BEAKER) 0.67 mg/dL 0.57-1.25 (test code = 358) GLUCOSE RANDOM 113 mg/dL 70-105 H (BEAKER) (test code = 652) CALCIUM (BEAKER) 8.5 mg/dL 8.4-10.2 (test code = 697) EGFR (BEAKER) (test 91 mL/min/1.73 ESTIMA CRYSTAL GFR IS code = 1092) sq m NOT ACCURATE CREATININE CLEARANCE IN PREDICTING GLOMERULAR FILTRATION RATE . ESTIMATED GFR I S NOT APPLICABLE FOR DIALYSIS PATIEN TS. Audio Visual Coordinator ID - PIAYA LCBC W/PLT COUNT & AUTO [id number] 04:48:00 Test Item Value Reference Range Interpretation Comments WHITE BLOOD CELL COUNT (BEAKER) 3.1 K/ L 3.5-10.5 L (test code = 775) RED BLOOD CELL COUNT (BEAKER) 2.86 M/ L 3.93-5.22 L (test code = 761) HEMOGLOBIN (BEAKER) (test code = 7.9 GM/DL 11.2-15.7 L 410) HEMATOCRIT (BEAKER) (test code = 24.7 % 34.1-44.9 L 411) MEAN CORPUSCULAR VOLUME (BEAKER) 86.4 fL 79.4-94.8 (test code = 753) MEAN CORPUSCULAR HEMOGLOBIN 27.6 pg 25.6-32.2 (BEAKER) (test code = 751) MEAN CORPUSCULAR HEMOGLOBIN CONC 32.0 GM/DL 32.2-35.5 L (BEAKER) (test code = 752) RED CELL DISTRIBUTION WIDTH 14.3 % 11.7-14.4 (BEAKER) (test code = 412) PLATELET COUNT (BEAKER) (test 179 K/CU MM 150-450 code = 756) MEAN PLATELET VOLUME (BEAKER) 11.4 fL 9.4-12.3 (test code = 754) NUCLEATED RED BLOOD CELLS 0 /100 WBC 0-0 (BEAKER) (test code = 413) NEUTROPHILS RELATIVE PERCENT 63 % (BEAKER) (test code = 429) LYMPHOCYTES RELATIVE PERCENT 21 % (BEAKER) (test code = 430) MONOCYTES RELATIVE PERCENT 9 % (BEAKER) (test code = 431) EOSINOPHILS RELATIVE PERCENT 6 % (BEAKER) (test code = 432) BASOPHILS RELATIVE PERCENT 1 % (BEAKER) (test code = 437) NEUTROPHILS ABSOLUTE COUNT 1.94 K/ L 1.56-6.13 (BEAKER) (test code = 670) LYMPHOCYTES ABSOLUTE COUNT 0.66 K/ L 1.18-3.74 L (BEAKER) (test code = 414) MONOCYTES ABSOLUTE COUNT (BEAKER) 0.27 K/ L 0.24-0.36 (test code = 415) EOSINOPHILS ABSOLUTE COUNT 0.18 K/ L 0.04-0.36 (BEAKER) (test code = 416) BASOPHILS ABSOLUTE COUNT (BEAKER) 0.02 K/ L 0.01-0.08 (test code = 417) IMMATURE GRANULOCYTES-RELATIVE 0 % 0-1 PERCENT (BEAKER) (test code = 2801) TISSUE [id number] 13:18:00Surgical Pathology Report Case: [id number] Authorizing Provider: Tony Cerda II, MD Collected: 06/09/2019 01:55 PM Ordering Location: [facility] PERIOPER[facility]IVE Received: 06/09/2019 02:04 PM SERVICES Pathologist: Layton Latif MD Specimens: A) - Gastric, Simple gastrectomy, Left partial hepatectomy; stitch sanders distal end--Show and Tell B) - Soft Tissue, Other, Falciform A. 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 The entire ulcer and surrounding area is submitted for histopathologic examination. There is no evidence of malignancy. 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 Concomitant H.pylori infection is also noted. Marked submucosal scarring, foreign body giant cell reaction and reactive mesothelial proliferation suggest the possibility of remote perforation.[id number] massA. Gastric. Simple gastrectomy, left partial hepatectomy; stitch sanders distal end--Show and Tell; B. Soft tissue, other, falciformA.The specimen is received fresh, labeled "Gastric, simple gastrectomy, left partial hepatectomy; stitch sanders distal end--Show and Tell" and consists of a partial gastrectomy measuring 21 cm along the greater curvature, 9.0 cm along the lesser curvature, 2.2 cm from anterior to posterior with a 5 cm distal stapled margin marked by surgeon with suture. The attached fat measures 6.5 x 3.6 x 2.0 cm alongthe lesser curvature. The specimen is opened along the greater curvature to show a 1.8 x 1.3 cm ulcerated lesion with elevated rim, surrounded by 4.5 x 4.0 cm congested mucosa. The lesion is 2.9 cm from the proximal margin and 10.5 cm from the distal margin. The lesion is serially sectioned from proximal to distal to show an ulcerated lesion is measuring 0.3 cm in depth with a hematoma collection andfibrotic soft tissue underneath the ulcer. The ulcer is limited to the mucosa. Grossly there are mult iple metal susanna and sutures identified inside the ulcer and surrounding soft tissue, consistent with prior surgery. The remainder of the gastric mucosa is unremarkable.Ink code: distal margin black;proximal blue. Serosa underneath lesion, orange. Section code: A1, distal margin en face; A2-A3, proximal margin en face; A4, lesser curvature mesenteric margin; A5, greater curvature mesenteric margin; A6-A18, ulcer with adjacent tissue, full thickness, entirely submitted; A19, client representative sectionof uninvolved stomach; A20, three lymph nodes; A21, two lymph nodes; A22-A39, fat entirely submitted. WA/pl/ewB. The specimen is received in formalin labeled "Falciform" and consists of a 7.8 x 4.5 x 1.7 cm yadav-yellow fibroadipose tissue. The cauterized margin is inked as blue and serially sectioned and submitted entirely in cassette B1. The specimen is serially sectioned to show yadav-yellow fibroadipose tissue. A 1 x 1 x 1 cm lymph node is identified grossly. The cut surface of the lymph node is yadav-pink and homogeneous. The lymph node is serially sectioned and submitted entirely in cassette B2-B3.The remaining of the specimen is serially sectioned and submitted entirely in cassettes B4-B15. WA/plSIMPLE GASTRECTOMY, LEFT PARTIAL HEPATECTOMY, STITCH SANDERS DISTAL END- SHOW AND TELL: - ULCERATED MASS LESION - 2 CM FROM THE PROXIMAL MARGIN.Reported by Dr. Latif on June 08 at 2:34 p.m. Performed.Immunostain for H.pylori is examined.The interpretation of this case included the use of immunohistochemistry or special stains.Control Slides Examined: In-house known positive controls were evaluated along with the test tissue. These control slides run alongside of the patients sample show appro priate staining. Internal positive and negative controls when available are evaluated Immunohistochemistry technical testing was performed at [facility], Pathology Laboratory where it was developed and its performance characteristics were determined. It has not been cleared or approved by the U.S. Food and Drug Administration. The FDA has determined that such clearance or approval is not necessary. The test is used for clinical purposes. It should not be regarded as investigational or for research. This laboratory is certified under the Clinical Laboratory Improvement Amendments of 1988 (CLIA-88) as qualified to perform high complexity clinical laboratory testing.PHOSPHORUS 2019-06-11 07:07:00 Test Item Value Reference Range Interpretation Comments PHOSPHORUS (BEAKER) (test code = 2.7 mg/dL 2.3-4.7 604) Audio Visual Coordinator ID - BEKA [id number] 07:07:00 Test Item Value Reference Range Interpretation Comments MAGNESIUM (BEAKER) (test code = 1.9 mg/dL 1.6-2.6 627) Audio Visual Coordinator ID - BEKA MBASIC METABOLIC [id number] 07:07:00 Test Item Value Reference Range Interpretation Comments SODIUM (BEAKER) 136 meq/L 136-145 (test code = 381) POTASSIUM (BEAKER) 3.9 meq/L 3.5-5.1 (test code = 379) CHLORIDE (BEAKER) 105 meq/L 98-107 (test code = 382) CO2 (BEAKER) (test 27 meq/L 22-29 code = 355) BLOOD UREA NITROGEN 6 mg/dL 7-21 L (BEAKER) (test code = 354) CREATININE (BEAKER) 0.71 mg/dL 0.57-1.25 (test code = 358) GLUCOSE RANDOM 115 mg/dL 70-105 H (BEAKER) (test code = 652) CALCIUM (BEAKER) 8.4 mg/dL 8.4-10.2 (test code = 697) EGFR (BEAKER) (test 85 mL/min/1.73 ESTIMA CRYSTAL GFR IS code = 1092) sq m NOT ACCURATE CREATININE CLEARANCE IN PREDICTING GLOMERULAR FILTRATION RATE . ESTIMATED GFR I S NOT APPLICABLE FOR DIALYSIS PATIEN TS. Audio Visual Coordinator ID - [facility] W/PLT COUNT & AUTO [id number] 06:52:00 Test Item Value Reference Range Interpretation Comments WHITE BLOOD CELL COUNT (BEAKER) 3.9 K/ L 3.5-10.5 (test code = 775) RED BLOOD CELL COUNT (BEAKER) 2.83 M/ L 3.93-5.22 L (test code = 761) HEMOGLOBIN (BEAKER) (test code = 7.8 GM/DL 11.2-15.7 L 410) HEMATOCRIT (BEAKER) (test code = 24.7 % 34.1-44.9 L 411) MEAN CORPUSCULAR VOLUME (BEAKER) 87.3 fL 79.4-94.8 (test code = 753) MEAN CORPUSCULAR HEMOGLOBIN 27.6 pg 25.6-32.2 (BEAKER) (test code = 751) MEAN CORPUSCULAR HEMOGLOBIN CONC 31.6 GM/DL 32.2-35.5 L (BEAKER) (test code = 752) RED CELL DISTRIBUTION WIDTH 14.6 % 11.7-14.4 H (BEAKER) (test code = 412) PLATELET COUNT (BEAKER) (test 179 K/CU MM 150-450 code = 756) MEAN PLATELET VOLUME (BEAKER) 11.4 fL 9.4-12.3 (test code = 754) NUCLEATED RED BLOOD CELLS 0 /100 WBC 0-0 (BEAKER) (test code = 413) NEUTROPHILS RELATIVE PERCENT 66 % (BEAKER) (test code = 429) LYMPHOCYTES RELATIVE PERCENT 23 % (BEAKER) (test code = 430) MONOCYTES RELATIVE PERCENT 7 % (BEAKER) (test code = 431) EOSINOPHILS RELATIVE PERCENT 3 % (BEAKER) (test code = 432) BASOPHILS RELATIVE PERCENT 1 % (BEAKER) (test code = 437) NEUTROPHILS ABSOLUTE COUNT 2.61 K/ L 1.56-6.13 (BEAKER) (test code = 670) LYMPHOCYTES ABSOLUTE COUNT 0.91 K/ L 1.18-3.74 L (BEAKER) (test code = 414) MONOCYTES ABSOLUTE COUNT (BEAKER) 0.29 K/ L 0.24-0.36 (test code = 415) EOSINOPHILS ABSOLUTE COUNT 0.10 K/ L 0.04-0.36 (BEAKER) (test code = 416) BASOPHILS ABSOLUTE COUNT (BEAKER) 0.03 K/ L 0.01-0.08 (test code = 417) IMMATURE GRANULOCYTES-RELATIVE 0 % 0-1 PERCENT (BEAKER) (test code = 2801) CBC W/PLT COUNT & AUTO [id number] 04:56:00 Test Item Value Reference Range Interpretation Comments WHITE BLOOD CELL COUNT (BEAKER) 6.4 K/ L 3.5-10.5 (test code = 775) RED BLOOD CELL COUNT (BEAKER) 3.20 M/ L 3.93-5.22 L (test code = 761) HEMOGLOBIN (BEAKER) (test code = 8.9 GM/DL 11.2-15.7 L 410) HEMATOCRIT (BEAKER) (test code = 28.1 % 34.1-44.9 L 411) MEAN CORPUSCULAR VOLUME (BEAKER) 87.8 fL 79.4-94.8 (test code = 753) MEAN CORPUSCULAR HEMOGLOBIN 27.8 pg 25.6-32.2 (BEAKER) (test code = 751) MEAN CORPUSCULAR HEMOGLOBIN CONC 31.7 GM/DL 32.2-35.5 L (BEAKER) (test code = 752) RED CELL DISTRIBUTION WIDTH 14.6 % 11.7-14.4 H (BEAKER) (test code = 412) PLATELET COUNT (BEAKER) (test 204 K/CU MM 150-450 code = 756) MEAN PLATELET VOLUME (BEAKER) 11.7 fL 9.4-12.3 (test code = 754) NUCLEATED RED BLOOD CELLS 0 /100 WBC 0-0 (BEAKER) (test code = 413) NEUTROPHILS RELATIVE PERCENT 80 % (BEAKER) (test code = 429) LYMPHOCYTES RELATIVE PERCENT 12 % (BEAKER) (test code = 430) MONOCYTES RELATIVE PERCENT 7 % (BEAKER) (test code = 431) EOSINOPHILS RELATIVE PERCENT 0 % (BEAKER) (test code = 432) BASOPHILS RELATIVE PERCENT 0 % (BEAKER) (test code = 437) NEUTROPHILS ABSOLUTE COUNT 5.09 K/ L 1.56-6.13 (BEAKER) (test code = 670) LYMPHOCYTES ABSOLUTE COUNT 0.77 K/ L 1.18-3.74 L (BEAKER) (test code = 414) MONOCYTES ABSOLUTE COUNT (BEAKER) 0.46 K/ L 0.24-0.36 H (test code = 415) EOSINOPHILS ABSOLUTE COUNT 0.00 K/ L 0.04-0.36 L (BEAKER) (test code = 416) BASOPHILS ABSOLUTE COUNT (BEAKER) 0.02 K/ L 0.01-0.08 (test code = 417) IMMATURE GRANULOCYTES-RELATIVE 0 % 0-1 PERCENT (BEAKER) (test code = 2801) BASIC METABOLIC [id number] 04:35:00 Test Item Value Reference Range Interpretation Comments SODIUM (BEAKER) 137 meq/L 136-145 (test code = 381) POTASSIUM (BEAKER) 4.9 meq/L 3.5-5.1 (test code = 379) CHLORIDE (BEAKER) 108 meq/L 98-107 H (test code = 382) CO2 (BEAKER) (test 24 meq/L 22-29 code = 355) BLOOD UREA NITROGEN 11 mg/dL 7-21 (BEAKER) (test code = 354) CREATININE (BEAKER) 0.78 mg/dL 0.57-1.25 (test code = 358) GLUCOSE RANDOM 129 mg/dL 70-105 H (BEAKER) (test code = 652) CALCIUM (BEAKER) 8.2 mg/dL 8.4-10.2 L (test code = 697) EGFR (BEAKER) (test 76 mL/min/1.73 ESTIMA CRYSTAL GFR IS code = 1092) sq m NOT ACCURATE CREATININE CLEARANCE IN PREDICTING GLOMERULAR FILTRATION RATE . ESTIMATED GFR I S NOT APPLICABLE FOR DIALYSIS PATIEN TS. Audio Visual Coordinator ID - BEKA [id number] 16:54:00 Test Item Value Reference Range Interpretation Comments PHOSPHORUS (BEAKER) (test code = 4.5 mg/dL 2.3-4.7 604) Audio Visual Coordinator ID - [id number] 16:54:00 Test Item Value Reference Range Interpretation Comments MAGNESIUM (BEAKER) (test code = 1.9 mg/dL 1.6-2.6 627) Audio Visual Coordinator ID - EMERSONBASIC METABOLIC [id number] 16:54:00 Test Item Value Reference Range Interpretation Comments SODIUM (BEAKER) 138 meq/L 136-145 (test code = 381) POTASSIUM (BEAKER) 5.0 meq/L 3.5-5.1 (test code = 379) CHLORIDE (BEAKER) 110 meq/L 98-107 H (test code = 382) CO2 (BEAKER) (test 20 meq/L 22-29 L code = 355) BLOOD UREA NITROGEN 13 mg/dL 7-21 (BEAKER) (test code = 354) CREATININE (BEAKER) 0.79 mg/dL 0.57-1.25 (test code = 358) GLUCOSE RANDOM 157 mg/dL 70-105 H (BEAKER) (test code = 652) CALCIUM (BEAKER) 8.2 mg/dL 8.4-10.2 L (test code = 697) EGFR (BEAKER) (test 75 mL/min/1.73 ESTIMA CRYSTAL GFR IS code = 1092) sq m NOT ACCURATE CREATININE CLEARANCE IN PREDICTING GLOMERULAR FILTRATION RATE . ESTIMATED GFR I S NOT APPLICABLE FOR DIALYSIS PATIEN TS. Audio Visual Coordinator ID - EMERSONBASIC METABOLIC [id number] 05:01:00 Test Item Value Reference Range Interpretation Comments SODIUM (BEAKER) 139 meq/L 136-145 (test code = 381) POTASSIUM (BEAKER) 4.4 meq/L 3.5-5.1 (test code = 379) CHLORIDE (BEAKER) 106 meq/L 98-107 (test code = 382) CO2 (BEAKER) (test 24 meq/L 22-29 code = 355) BLOOD UREA NITROGEN 13 mg/dL 7-21 (BEAKER) (test code = 354) CREATININE (BEAKER) 0.77 mg/dL 0.57-1.25 (test code = 358) GLUCOSE RANDOM 108 mg/dL 70-105 H (BEAKER) (test code = 652) CALCIUM (BEAKER) 9.1 mg/dL 8.4-10.2 (test code = 697) EGFR (BEAKER) (test 78 mL/min/1.73 ESTIMA CRYSTAL GFR IS code = 1092) sq m NOT ACCURATE CREATININE CLEARANCE IN PREDICTING GLOMERULAR FILTRATION RATE . ESTIMATED GFR I S NOT APPLICABLE FOR DIALYSIS PATIEN TS. Audio Visual Coordinator ID - BEKA MPROTHROMBIN TIME/[id number] 04:35:00 Test Item Value Reference Range Interpretation Comments PROTIME (BEAKER) (test code = 13.1 seconds 11.9-14.2 759) INR (BEAKER) (test code = 370) 1.0 <=5.9 Effective 08/13/2018: PT Reference Range ChangeNew: 11.9-14.2 Previous: 11.7- 14.7RECOMMENDED COUMADIN/WARFARIN INR THERAPY RANGESSTANDARD DOSE: 2.0-3.0 Includes: PROPHYLAXIS for venous thrombosis, systemic embolization; TREATMENT for venous thrombosis and/or pulmonary embolus.HIGH RISK: Target INR is2.5-3.5 for patients wiht mechanical heart valves.CBC W/PLT COUNT & AUTO [id number] 04:30:00 Test Item Value Reference Range Interpretation Comments WHITE BLOOD CELL COUNT (BEAKER) 3.7 K/ L 3.5-10.5 (test code = 775) RED BLOOD CELL COUNT (BEAKER) 3.30 M/ L 3.93-5.22 L (test code = 761) HEMOGLOBIN (BEAKER) (test code = 9.1 GM/DL 11.2-15.7 L 410) HEMATOCRIT (BEAKER) (test code = 28.5 % 34.1-44.9 L 411) MEAN CORPUSCULAR VOLUME (BEAKER) 86.4 fL 79.4-94.8 (test code = 753) MEAN CORPUSCULAR HEMOGLOBIN 27.6 pg 25.6-32.2 (BEAKER) (test code = 751) MEAN CORPUSCULAR HEMOGLOBIN CONC 31.9 GM/DL 32.2-35.5 L (BEAKER) (test code = 752) RED CELL DISTRIBUTION WIDTH 14.5 % 11.7-14.4 H (BEAKER) (test code = 412) PLATELET COUNT (BEAKER) (test 213 K/CU MM 150-450 code = 756) MEAN PLATELET VOLUME (BEAKER) 11.8 fL 9.4-12.3 (test code = 754) NUCLEATED RED BLOOD CELLS 0 /100 WBC 0-0 (BEAKER) (test code = 413) NEUTROPHILS RELATIVE PERCENT 56 % (BEAKER) (test code = 429) LYMPHOCYTES RELATIVE PERCENT 32 % (BEAKER) (test code = 430) MONOCYTES RELATIVE PERCENT 7 % (BEAKER) (test code = 431) EOSINOPHILS RELATIVE PERCENT 3 % (BEAKER) (test code = 432) BASOPHILS RELATIVE PERCENT 1 % (BEAKER) (test code = 437) NEUTROPHILS ABSOLUTE COUNT 2.08 K/ L 1.56-6.13 (BEAKER) (test code = 670) LYMPHOCYTES ABSOLUTE COUNT 1.19 K/ L 1.18-3.74 (BEAKER) (test code = 414) MONOCYTES ABSOLUTE COUNT (BEAKER) 0.26 K/ L 0.24-0.36 (test code = 415) EOSINOPHILS ABSOLUTE COUNT 0.12 K/ L 0.04-0.36 (BEAKER) (test code = 416) BASOPHILS ABSOLUTE COUNT (BEAKER) 0.04 K/ L 0.01-0.08 (test code = 417) IMMATURE GRANULOCYTES-RELATIVE 0 % 0-1 PERCENT (BEAKER) (test code = 2801) HEMOGLOBIN [id number] 18:58:00 Test Item Value Reference Range Interpretation Comments HEMOGLOBIN A1C (BEAKER) (test code = 5.9 % 4.3-6.1 368) LIPID [id number] 11:20:00 Test Item Value Reference Range Interpretation Comments TRIGLYCERIDES (BEAKER) (test code = 63 mg/dL 540) CHOLESTEROL (BEAKER) (test code = 159 mg/dL 631) HDL CHOLESTEROL (BEAKER) (test code 60 mg/dL = 976) LDL CHOLESTEROL CALCULATED (BEAKER) 86 mg/dL (test code = 633) Triglyceride Reference Range: Low Risk <150 Borderline 150-199 High Risk 200-499 Very High Risk >=500Cholesterol Reference Range: Low Risk <200 Borderline 200-239 High Risk >240HDL Cholesterol Reference Range: Low Risk >=60 High Risk <40LDL Cholesterol Reference Range: Optimal <100 Near Optimal 100-129 Borderline 130-159 High 160-189 Very High >=190 Audio Visual Coordinator ID - NTPBASIC METABOLIC [id number] 04:45:00 Test Item Value Reference Range Interpretation Comments SODIUM (BEAKER) 139 meq/L 136-145 (test code = 381) POTASSIUM (BEAKER) 4.3 meq/L 3.5-5.1 (test code = 379) CHLORIDE (BEAKER) 106 meq/L 98-107 (test code = 382) CO2 (BEAKER) (test 26 meq/L 22-29 code = 355) BLOOD UREA NITROGEN 13 mg/dL 7-21 (BEAKER) (test code = 354) CREATININE (BEAKER) 0.75 mg/dL 0.57-1.25 (test code = 358) GLUCOSE RANDOM 103 mg/dL 70-105 (BEAKER) (test code = 652) CALCIUM (BEAKER) 9.0 mg/dL 8.4-10.2 (test code = 697) EGFR (BEAKER) (test 80 mL/min/1.73 ESTIMA CRYSTAL GFR IS code = 1092) sq m NOT ACCURATE CREATININE CLEARANCE IN PREDICTING GLOMERULAR FILTRATION RATE . ESTIMATED GFR I S NOT APPLICABLE FOR DIALYSIS PATIEN TS. Audio Visual Coordinator ID - PIAYA LCBC W/PLT COUNT & AUTO [id number] 04:17:00 Test Item Value Reference Range Interpretation Comments WHITE BLOOD CELL COUNT (BEAKER) 3.6 K/ L 3.5-10.5 (test code = 775) RED BLOOD CELL COUNT (BEAKER) 3.50 M/ L 3.93-5.22 L (test code = 761) HEMOGLOBIN (BEAKER) (test code = 9.5 GM/DL 11.2-15.7 L 410) HEMATOCRIT (BEAKER) (test code = 29.8 % 34.1-44.9 L 411) MEAN CORPUSCULAR VOLUME (BEAKER) 85.1 fL 79.4-94.8 (test code = 753) MEAN CORPUSCULAR HEMOGLOBIN 27.1 pg 25.6-32.2 (BEAKER) (test code = 751) MEAN CORPUSCULAR HEMOGLOBIN CONC 31.9 GM/DL 32.2-35.5 L (BEAKER) (test code = 752) RED CELL DISTRIBUTION WIDTH 14.2 % 11.7-14.4 (BEAKER) (test code = 412) PLATELET COUNT (BEAKER) (test 200 K/CU MM 150-450 code = 756) MEAN PLATELET VOLUME (BEAKER) 11.1 fL 9.4-12.3 (test code = 754) NUCLEATED RED BLOOD CELLS 0 /100 WBC 0-0 (BEAKER) (test code = 413) NEUTROPHILS RELATIVE PERCENT 56 % (BEAKER) (test code = 429) LYMPHOCYTES RELATIVE PERCENT 33 % (BEAKER) (test code = 430) MONOCYTES RELATIVE PERCENT 7 % (BEAKER) (test code = 431) EOSINOPHILS RELATIVE PERCENT 3 % (BEAKER) (test code = 432) BASOPHILS RELATIVE PERCENT 1 % (BEAKER) (test code = 437) NEUTROPHILS ABSOLUTE COUNT 2.03 K/ L 1.56-6.13 (BEAKER) (test code = 670) LYMPHOCYTES ABSOLUTE COUNT 1.19 K/ L 1.18-3.74 (BEAKER) (test code = 414) MONOCYTES ABSOLUTE COUNT (BEAKER) 0.24 K/ L 0.24-0.36 (test code = 415) EOSINOPHILS ABSOLUTE COUNT 0.12 K/ L 0.04-0.36 (BEAKER) (test code = 416) BASOPHILS ABSOLUTE COUNT (BEAKER) 0.03 K/ L 0.01-0.08 (test code = 417) IMMATURE GRANULOCYTES-RELATIVE 0 % 0-1 PERCENT (BEAKER) (test code = 2801) HEMOGLOBIN AND [id number] 05:46:00 Test Item Value Reference Range Interpretation Comments HEMOGLOBIN (BEAKER) (test code = 8.8 GM/DL 11.2-15.7 L 410) HEMATOCRIT (BEAKER) (test code = 27.4 % 34.1-44.9 L 411) Audio Visual Coordinator ID - [id number] W/PLT COUNT & AUTO [id number] 05:46:00 Test Item Value Reference Range Interpretation Comments WHITE BLOOD CELL COUNT (BEAKER) 3.6 K/ L 3.5-10.5 (test code = 775) RED BLOOD CELL COUNT (BEAKER) 3.14 M/ L 3.93-5.22 L (test code = 761) HEMOGLOBIN (BEAKER) (test code = 8.8 GM/DL 11.2-15.7 L 410) HEMATOCRIT (BEAKER) (test code = 27.4 % 34.1-44.9 L 411) MEAN CORPUSCULAR VOLUME (BEAKER) 87.3 fL 79.4-94.8 (test code = 753) MEAN CORPUSCULAR HEMOGLOBIN 28.0 pg 25.6-32.2 (BEAKER) (test code = 751) MEAN CORPUSCULAR HEMOGLOBIN CONC 32.1 GM/DL 32.2-35.5 L (BEAKER) (test code = 752) RED CELL DISTRIBUTION WIDTH 14.2 % 11.7-14.4 (BEAKER) (test code = 412) PLATELET COUNT (BEAKER) (test 176 K/CU MM 150-450 code = 756) MEAN PLATELET VOLUME (BEAKER) 11.5 fL 9.4-12.3 (test code = 754) NUCLEATED RED BLOOD CELLS 0 /100 WBC 0-0 (BEAKER) (test code = 413) NEUTROPHILS RELATIVE PERCENT 55 % (BEAKER) (test code = 429) LYMPHOCYTES RELATIVE PERCENT 33 % (BEAKER) (test code = 430) MONOCYTES RELATIVE PERCENT 7 % (BEAKER) (test code = 431) EOSINOPHILS RELATIVE PERCENT 4 % (BEAKER) (test code = 432) BASOPHILS RELATIVE PERCENT 1 % (BEAKER) (test code = 437) NEUTROPHILS ABSOLUTE COUNT 1.98 K/ L 1.56-6.13 (BEAKER) (test code = 670) LYMPHOCYTES ABSOLUTE COUNT 1.21 K/ L 1.18-3.74 (BEAKER) (test code = 414) MONOCYTES ABSOLUTE COUNT (BEAKER) 0.25 K/ L 0.24-0.36 (test code = 415) EOSINOPHILS ABSOLUTE COUNT 0.14 K/ L 0.04-0.36 (BEAKER) (test code = 416) BASOPHILS ABSOLUTE COUNT (BEAKER) 0.03 K/ L 0.01-0.08 (test code = 417) IMMATURE GRANULOCYTES-RELATIVE 0 % 0-1 PERCENT (BEAKER) (test code = 2801) HEMOGLOBIN AND [id number] 15:16:00 Test Item Value Reference Range Interpretation Comments HEMOGLOBIN (BEAKER) (test code = 8.4 GM/DL 11.2-15.7 L 410) HEMATOCRIT (BEAKER) (test code = 27.0 % 34.1-44.9 L 411) Audio Visual Coordinator ID - [id number] ANTIGEN (CEA)2019-06-06 05:41:00 Test Item Value Reference Range Interpretation Comments CARCINOEMBRYONIC ANTIGEN (BEAKER) 1.1 ng/mL 0.0-5.0 (test code = 685) Audio Visual Coordinator ID - PIAYA LBASIC METABOLIC [id number] 05:18:00 Test Item Value Reference Range Interpretation Comments SODIUM (BEAKER) 139 meq/L 136-145 (test code = 381) POTASSIUM (BEAKER) 3.9 meq/L 3.5-5.1 (test code = 379) CHLORIDE (BEAKER) 107 meq/L 98-107 (test code = 382) CO2 (BEAKER) (test 27 meq/L 22-29 code = 355) BLOOD UREA NITROGEN 8 mg/dL 7-21 (BEAKER) (test code = 354) CREATININE (BEAKER) 0.71 mg/dL 0.57-1.25 (test code = 358) GLUCOSE RANDOM 117 mg/dL 70-105 H (BEAKER) (test code = 652) CALCIUM (BEAKER) 8.6 mg/dL 8.4-10.2 (test code = 697) EGFR (BEAKER) (test 85 mL/min/1.73 ESTIMA CRYSTAL GFR IS code = 1092) sq m NOT ACCURATE CREATININE CLEARANCE IN PREDICTING GLOMERULAR FILTRATION RATE . ESTIMATED GFR I S NOT APPLICABLE FOR DIALYSIS PATIEN TS. Audio Visual Coordinator ID - BEKA MHEMOGLOBIN AND [id number] 04:58:00 Test Item Value Reference Range Interpretation Comments HEMOGLOBIN (BEAKER) (test code = 7.9 GM/DL 11.2-15.7 L 410) HEMATOCRIT (BEAKER) (test code = 24.8 % 34.1-44.9 L 411) Audio Visual Coordinator ID - [id number] W/PLT COUNT & AUTO [id number] 04:58:00 Test Item Value Reference Range Interpretation Comments WHITE BLOOD CELL COUNT (BEAKER) 3.8 K/ L 3.5-10.5 (test code = 775) RED BLOOD CELL COUNT (BEAKER) 2.89 M/ L 3.93-5.22 L (test code = 761) HEMOGLOBIN (BEAKER) (test code = 7.9 GM/DL 11.2-15.7 L 410) HEMATOCRIT (BEAKER) (test code = 24.8 % 34.1-44.9 L 411) MEAN CORPUSCULAR VOLUME (BEAKER) 85.8 fL 79.4-94.8 (test code = 753) MEAN CORPUSCULAR HEMOGLOBIN 27.3 pg 25.6-32.2 (BEAKER) (test code = 751) MEAN CORPUSCULAR HEMOGLOBIN CONC 31.9 GM/DL 32.2-35.5 L (BEAKER) (test code = 752) RED CELL DISTRIBUTION WIDTH 14.1 % 11.7-14.4 (BEAKER) (test code = 412) PLATELET COUNT (BEAKER) (test 152 K/CU MM 150-450 code = 756) MEAN PLATELET VOLUME (BEAKER) 11.3 fL 9.4-12.3 (test code = 754) NUCLEATED RED BLOOD CELLS 0 /100 WBC 0-0 (BEAKER) (test code = 413) NEUTROPHILS RELATIVE PERCENT 67 % (BEAKER) (test code = 429) LYMPHOCYTES RELATIVE PERCENT 23 % (BEAKER) (test code = 430) MONOCYTES RELATIVE PERCENT 6 % (BEAKER) (test code = 431) EOSINOPHILS RELATIVE PERCENT 3 % (BEAKER) (test code = 432) BASOPHILS RELATIVE PERCENT 1 % (BEAKER) (test code = 437) NEUTROPHILS ABSOLUTE COUNT 2.56 K/ L 1.56-6.13 (BEAKER) (test code = 670) LYMPHOCYTES ABSOLUTE COUNT 0.89 K/ L 1.18-3.74 L (BEAKER) (test code = 414) MONOCYTES ABSOLUTE COUNT (BEAKER) 0.21 K/ L 0.24-0.36 L (test code = 415) EOSINOPHILS ABSOLUTE COUNT 0.13 K/ L 0.04-0.36 (BEAKER) (test code = 416) BASOPHILS ABSOLUTE COUNT (BEAKER) 0.02 K/ L 0.01-0.08 (test code = 417) IMMATURE GRANULOCYTES-RELATIVE 0 % 0-1 PERCENT (BEAKER) (test code = 2801) HEMOGLOBIN AND [id number] 16:02:00 Test Item Value Reference Range Interpretation Comments HEMOGLOBIN (BEAKER) (test code = 8.5 GM/DL 11.2-15.7 L 410) HEMATOCRIT (BEAKER) (test code = 26.6 % 34.1-44.9 L 411) Audio Visual Coordinator ID - [id number], [id number] 10:43:00Triphase CT: gastric mass on EUS was reportedly vascular.Please specify:->Multiphase LiverFINAL REPORT ABDOMINAL AND PELVIS CT DATED 06/05/2019 CLINICAL INFORMATION: t riphasic CT, eval gastric mass, c/f blood clot on EUS TECHNIQUE: Axial images of the abdomen and pelvis were obtained from diaphragm to the pubic symphysis contrast. This exam was performed according to our departmental dose- optimization program, which includes automated exposure control, adjustment of the mA and/or kV according to patient size and/or use of interactive reconstruction technique. COMMENT: Patient is status post gastric bypass surgery with gastrojejunostomy. There is diffuse wall thickening in the gastric remnant. Hyperdense fluid is seen in the gastric remnant suggestive of hematoma. No active bleeding is visualized. The small large bowel are unremarkable. Appendix is normal in caliber. Liver and spleen are normal in size without focal abnormality. Gallbladder is surgicallyabsent. No biliary dilatation is noted. Pancreas and adrenals are unremarkable. Both kidneys are normal in size and functioning with bilateral excretion. No hydronephrosis, hydroureter, urolithiasisis seen. Uterus surgically absent. Both ovaries not seen. No mass, adenopathy or ascites is present.IMPRESSION: 1. No metastatic disease in the abdomen or pelvis.2. Status post gastric bypass surgerywith gastrojejunostomy.3. Hyperdense the fluid in the gastric remnant suggestive of hematoma withoutactive bleeding seen. Signed: Kalyn Hurst MDReport Verified Date/Time: 06/05/2019 10:43:36 Reading Location: [address] Body Reading Room RAD, CHEST, 1 VIEW, NON DEPT 2019-06-05 10:31:00Reason for exam:->coughFINAL REPORT TECHNIQUE: Frontal chest radiograph dated 06/05/2019. CLINICAL HISTORY: Cough COMPARISON STUDY: None IMPRESSION:Lungs are clear. No pleural effusion or pneumothorax.Cardiomediastinal silhouette is normal in size. No pulmonary edema. Degenerative changes are seen inthe spine. Signed: Latisha Hernandez MDReport Verified Date/Time: 06/05/2019 10:31:41 Reading Location: [address] Radiology Reading Room TISSUE [id number] 08:47:00Surgical Pathology Report Case: [id number] Authorizing Provider: Anthony Rae Collected: 06/04/2019 1250 MD Blaze OrderingLocation: [address] Received: 06/04/2019 1522 Service Pathologist: Daniel Reid MD Specimen: Mass, Remnant Gastric Mass Bx PART A GASTRIC BIOPSY FOR SUSPECTED MASS:SPECIMEN CONSISTS PREDOMINANTLY OF BLOOD AND RARE BENIGN MUCOSAL TISSUE.NO MORPHOLOGIC EVIDENCE OF MALIGNANCY.THE SAMPLED MATERIAL MAY NOT BE FULLY PARTY DIRECTOR (SEE DIAGNOSTIC COMMENT). Signing Pathologist Direct Phone Line: [phone] signed by Daniel Reid MD on 06/05/2019 at 8:47 AMThis patient has a a reported clinical history of a gastric mass as per the electronic medical record in [facility]. There is no evidence of malignancy in the current biopsy however the sampled material may not be fully client representative. If there is a clinical concern fora malignancy, additional tissue based studies may be warranted.[id number] massMass The specimen is received in formalin labeled with the patient's information accession number and medical record number and consists of a 1.5 x 0.5 x 0.1 cm dark red soft tissue. The entire specimen is submitted entirely in cassette A1. WA/plPerformed.The interpretation of this case included the use of immunohistochemistry or special stains.Control Slides Examined: In-house known positive controls were evaluated along with the test tissue. These control slides run alongside of the patients sample show appropriatestaining. Internal positive and negative controls when available are evaluated Immunohistochemistry technical testing was performed at [facility], Pathology Laboratory where it was developed and its performance characteristics were determined. It has not been cleared or approved by the U.S. Food and Drug Administration. The FDA has determined that such clearance or approval is not necessary. The test is used for clinical purposes. It should not be regarded as investigational orfor research. This laboratory is certified under the Clinical Laboratory Improvement Amendments of 1988 (CLIA-88) as qualified to perform high complexity clinical laboratory testing.[facility], Department of Pathology, [address] [place] [id number], [facility], [address] [place] [id number], Tel [facility], [facility] of [facility], [address] [place] [address], GQEOB METABOLIC [id number] 05:20:00 Test Item Value Reference Range Interpretation Comments SODIUM (BEAKER) 142 meq/L 136-145 (test code = 381) POTASSIUM (BEAKER) 3.8 meq/L 3.5-5.1 (test code = 379) CHLORIDE (BEAKER) 109 meq/L 98-107 H (test code = 382) CO2 (BEAKER) (test 29 meq/L 22-29 code = 355) BLOOD UREA NITROGEN 10 mg/dL 7-21 (BEAKER) (test code = 354) CREATININE (BEAKER) 0.69 mg/dL 0.57-1.25 (test code = 358) GLUCOSE RANDOM 103 mg/dL 70-105 (BEAKER) (test code = 652) CALCIUM (BEAKER) 8.3 mg/dL 8.4-10.2 L (test code = 697) EGFR (BEAKER) (test 88 mL/min/1.73 ESTIMA CRYSTAL GFR IS code = 1092) sq m NOT ACCURATE CREATININE CLEARANCE IN PREDICTING GLOMERULAR FILTRATION RATE . ESTIMATED GFR I S NOT APPLICABLE FOR DIALYSIS PATIEN TS. Audio Visual Coordinator ID - MARISOL WCBC W/PLT COUNT & AUTO [id number] 05:05:00 Test Item Value Reference Range Interpretation Comments WHITE BLOOD CELL COUNT (BEAKER) 3.9 K/ L 3.5-10.5 (test code = 775) RED BLOOD CELL COUNT (BEAKER) 2.82 M/ L 3.93-5.22 L (test code = 761) HEMOGLOBIN (BEAKER) (test code = 7.8 GM/DL 11.2-15.7 L 410) HEMATOCRIT (BEAKER) (test code = 24.5 % 34.1-44.9 L 411) MEAN CORPUSCULAR VOLUME (BEAKER) 86.9 fL 79.4-94.8 (test code = 753) MEAN CORPUSCULAR HEMOGLOBIN 27.7 pg 25.6-32.2 (BEAKER) (test code = 751) MEAN CORPUSCULAR HEMOGLOBIN CONC 31.8 GM/DL 32.2-35.5 L (BEAKER) (test code = 752) RED CELL DISTRIBUTION WIDTH 14.2 % 11.7-14.4 (BEAKER) (test code = 412) PLATELET COUNT (BEAKER) (test 146 K/CU MM 150-450 L code = 756) MEAN PLATELET VOLUME (BEAKER) 11.6 fL 9.4-12.3 (test code = 754) NUCLEATED RED BLOOD CELLS 0 /100 WBC 0-0 (BEAKER) (test code = 413) NEUTROPHILS RELATIVE PERCENT 66 % (BEAKER) (test code = 429) LYMPHOCYTES RELATIVE PERCENT 25 % (BEAKER) (test code = 430) MONOCYTES RELATIVE PERCENT 6 % (BEAKER) (test code = 431) EOSINOPHILS RELATIVE PERCENT 3 % (BEAKER) (test code = 432) BASOPHILS RELATIVE PERCENT 1 % (BEAKER) (test code = 437) NEUTROPHILS ABSOLUTE COUNT 2.55 K/ L 1.56-6.13 (BEAKER) (test code = 670) LYMPHOCYTES ABSOLUTE COUNT 0.95 K/ L 1.18-3.74 L (BEAKER) (test code = 414) MONOCYTES ABSOLUTE COUNT (BEAKER) 0.22 K/ L 0.24-0.36 L (test code = 415) EOSINOPHILS ABSOLUTE COUNT 0.11 K/ L 0.04-0.36 (BEAKER) (test code = 416) BASOPHILS ABSOLUTE COUNT (BEAKER) 0.02 K/ L 0.01-0.08 (test code = 417) IMMATURE GRANULOCYTES-RELATIVE 0 % 0-1 PERCENT (BEAKER) (test code = 2801) CBC W/PLT COUNT & AUTO [id number] 21:50:00 Test Item Value Reference Range Interpretation Comments WHITE BLOOD CELL COUNT (BEAKER) 6.5 K/ L 3.5-10.5 (test code = 775) RED BLOOD CELL COUNT (BEAKER) 3.13 M/ L 3.93-5.22 L (test code = 761) HEMOGLOBIN (BEAKER) (test code = 8.5 GM/DL 11.2-15.7 L 410) HEMATOCRIT (BEAKER) (test code = 27.0 % 34.1-44.9 L 411) MEAN CORPUSCULAR VOLUME (BEAKER) 86.3 fL 79.4-94.8 (test code = 753) MEAN CORPUSCULAR HEMOGLOBIN 27.2 pg 25.6-32.2 (BEAKER) (test code = 751) MEAN CORPUSCULAR HEMOGLOBIN CONC 31.5 GM/DL 32.2-35.5 L (BEAKER) (test code = 752) RED CELL DISTRIBUTION WIDTH 14.1 % 11.7-14.4 (BEAKER) (test code = 412) PLATELET COUNT (BEAKER) (test 184 K/CU MM 150-450 code = 756) MEAN PLATELET VOLUME (BEAKER) 11.0 fL 9.4-12.3 (test code = 754) NUCLEATED RED BLOOD CELLS 0 /100 WBC 0-0 (BEAKER) (test code = 413) NEUTROPHILS RELATIVE PERCENT 73 % (BEAKER) (test code = 429) LYMPHOCYTES RELATIVE PERCENT 19 % (BEAKER) (test code = 430) MONOCYTES RELATIVE PERCENT 5 % (BEAKER) (test code = 431) EOSINOPHILS RELATIVE PERCENT 2 % (BEAKER) (test code = 432) BASOPHILS RELATIVE PERCENT 0 % (BEAKER) (test code = 437) NEUTROPHILS ABSOLUTE COUNT 4.74 K/ L 1.56-6.13 (BEAKER) (test code = 670) LYMPHOCYTES ABSOLUTE COUNT 1.27 K/ L 1.18-3.74 (BEAKER) (test code = 414) MONOCYTES ABSOLUTE COUNT (BEAKER) 0.34 K/ L 0.24-0.36 (test code = 415) EOSINOPHILS ABSOLUTE COUNT 0.14 K/ L 0.04-0.36 (BEAKER) (test code = 416) BASOPHILS ABSOLUTE COUNT (BEAKER) 0.02 K/ L 0.01-0.08 (test code = 417) IMMATURE GRANULOCYTES-RELATIVE 0 % 0-1 PERCENT (BEAKER) (test code = 2801) BASIC METABOLIC [id number] 18:05:00 Test Item Value Reference Range Interpretation Comments SODIUM (BEAKER) 138 meq/L 136-145 (test code = 381) POTASSIUM (BEAKER) 4.5 meq/L 3.5-5.1 Specimen moderately (test code = 379) hemolyzed CHLORIDE (BEAKER) 108 meq/L 98-107 H (test code = 382) CO2 (BEAKER) (test 22 meq/L 22-29 code = 355) BLOOD UREA NITROGEN 11 mg/dL 7-21 (BEAKER) (test code = 354) CREATININE (BEAKER) 0.79 mg/dL 0.57-1.25 Specimen moderately (test code = 358) hemolyzed GLUCOSE RANDOM 255 mg/dL 70-105 H (BEAKER) (test code = 652) CALCIUM (BEAKER) 8.8 mg/dL 8.4-10.2 (test code = 697) EGFR (BEAKER) (test 75 mL/min/1.73 ESTIMA CRYSTAL GFR IS code = 1092) sq m NOT ACCURATE CREATININE CLEARANCE IN PREDICTING GLOMERULAR FILTRATION RATE . ESTIMATED GFR I S NOT APPLICABLE FOR DIALYSIS PATIEN TS. Audio Visual Coordinator ID - [id number] 04:52:00 Test Item Value Reference Range Interpretation Comments FERRITIN (BEAKER) (test code = 361) 6 ng/mL 5-275 Audio Visual Coordinator ID - MARISOL LITTLE, TIBC, % SAT. (WITHOUT FERRITIN)[id number] 04:32:00 Test Item Value Reference Range Interpretation Comments IRON (BEAKER) (test code = 547) 105.0 ug/dL 40.0-160.0 TOTAL IRON BINDING CAPACITY 250 ug/dL 250-450 (BEAKER) (test code = 769) IRON % SATURATION (2) (BEAKER) 42 % 20-55 (test code = 2590) Audio Visual Coordinator ID - MARISOL WHEPATIC FUNCTION [id number] 07:07:00 Test Item Value Reference Range Interpretation Comments TOTAL PROTEIN (BEAKER) (test code = 5.8 gm/dL 6.0-8.3 L 770) ALBUMIN (BEAKER) (test code = 1145) 3.5 g/dL 3.5-5.0 BILIRUBIN TOTAL (BEAKER) (test code 0.3 mg/dL 0.2-1.2 = 377) BILIRUBIN DIRECT (BEAKER) (test 0.1 mg/dL 0.1-0.5 code = 706) ALKALINE PHOSPHATASE (BEAKER) (test 86 U/L 40-150 code = 346) AST (SGOT) (BEAKER) (test code = 13 U/L 5-34 353) ALT (SGPT) (BEAKER) (test code = 8 U/L 6-55 347) Audio Visual Coordinator ID - BEKA MBASIC METABOLIC [id number] 07:07:00 Test Item Value Reference Range Interpretation Comments SODIUM (BEAKER) 139 meq/L 136-145 (test code = 381) POTASSIUM (BEAKER) 4.2 meq/L 3.5-5.1 (test code = 379) CHLORIDE (BEAKER) 109 meq/L 98-107 H (test code = 382) CO2 (BEAKER) (test 23 meq/L 22-29 code = 355) BLOOD UREA NITROGEN 18 mg/dL 7-21 (BEAKER) (test code = 354) CREATININE (BEAKER) 0.72 mg/dL 0.57-1.25 (test code = 358) GLUCOSE RANDOM 142 mg/dL 70-105 H (BEAKER) (test code = 652) CALCIUM (BEAKER) 8.8 mg/dL 8.4-10.2 (test code = 697) EGFR (BEAKER) (test 84 mL/min/1.73 ESTIMA CRYSTAL GFR IS code = 1092) sq m NOT ACCURATE CREATININE CLEARANCE IN PREDICTING GLOMERULAR FILTRATION RATE . ESTIMATED GFR I S NOT APPLICABLE FOR DIALYSIS PATIEN TS. Audio Visual Coordinator ID - BEKA [facility] W/PLT COUNT & AUTO [id number] 06:31:00 Test Item Value Reference Range Interpretation Comments WHITE BLOOD CELL COUNT (BEAKER) 6.9 K/ L 3.5-10.5 (test code = 775) RED BLOOD CELL COUNT (BEAKER) 3.34 M/ L 3.93-5.22 L (test code = 761) HEMOGLOBIN (BEAKER) (test code = 9.2 GM/DL 11.2-15.7 L 410) HEMATOCRIT (BEAKER) (test code = 28.2 % 34.1-44.9 L 411) MEAN CORPUSCULAR VOLUME (BEAKER) 84.4 fL 79.4-94.8 (test code = 753) MEAN CORPUSCULAR HEMOGLOBIN 27.5 pg 25.6-32.2 (BEAKER) (test code = 751) MEAN CORPUSCULAR HEMOGLOBIN CONC 32.6 GM/DL 32.2-35.5 (BEAKER) (test code = 752) RED CELL DISTRIBUTION WIDTH 14.1 % 11.7-14.4 (BEAKER) (test code = 412) PLATELET COUNT (BEAKER) (test 228 K/CU MM 150-450 code = 756) MEAN PLATELET VOLUME (BEAKER) 11.3 fL 9.4-12.3 (test code = 754) NUCLEATED RED BLOOD CELLS 0 /100 WBC 0-0 (BEAKER) (test code = 413) NEUTROPHILS RELATIVE PERCENT 80 % (BEAKER) (test code = 429) LYMPHOCYTES RELATIVE PERCENT 14 % (BEAKER) (test code = 430) MONOCYTES RELATIVE PERCENT 4 % (BEAKER) (test code = 431) EOSINOPHILS RELATIVE PERCENT 0 % (BEAKER) (test code = 432) BASOPHILS RELATIVE PERCENT 0 % (BEAKER) (test code = 437) NEUTROPHILS ABSOLUTE COUNT 5.57 K/ L 1.56-6.13 (BEAKER) (test code = 670) LYMPHOCYTES ABSOLUTE COUNT 1.00 K/ L 1.18-3.74 L (BEAKER) (test code = 414) MONOCYTES ABSOLUTE COUNT (BEAKER) 0.30 K/ L 0.24-0.36 (test code = 415) EOSINOPHILS ABSOLUTE COUNT 0.01 K/ L 0.04-0.36 L (BEAKER) (test code = 416) BASOPHILS ABSOLUTE COUNT (BEAKER) 0.03 K/ L 0.01-0.08 (test code = 417) IMMATURE GRANULOCYTES-RELATIVE 0 % 0-1 PERCENT (BEAKER) (test code = 4202)
[2021-02-01] MEDS ORDERED: CEFAZOLIN 2 GM in NA CHLORIDE 0.9% 100 ML IVPB SCH (17:00)
[2021-02-01] MEDS: CEFAZOLIN/SWI 2gm 2 GM/20 ML SYR IV SCH (17:35)
[2021-02-01 17:45] VITALS: BMI 34.6
--- NOTE | 2021-02-01 20:36 | P.OP ---
Preoperative diagnosis: left knee osteoarthritis Postoperative diagnosis: same Primary procedure: left total knee arthroplasty Anesthesia: general LMA Estimated blood loss: 20 cc Specimen: left knee bone remnants Findings: see dictation Operative Technique: Indication For Procedure: Kenia is a 55 year-old female presenting to my clinic with signs, symptoms and x-ray findings consistent with a severe left knee osteoarthritis. I discussed with the patient at length risks and benefits associated with operative and nonoperative treatment. She had failed conservative treatment measures and had significant difficulties with ADLs secondary to her pain. We discussed operative treatment and elected to proceed with left total knee arthroplasty. She expressed understanding and elected to proceed with operative treatment. Description Of Procedure: After informed consent was obtained, the patient was identified in the preoperative holding area. The left lower extremity was marked. The patient was then taken to the PACU where he underwent a left lower extremity adductor canal block performed by Anesthesia. She was then taken to the operating room, transferred to the operating table in supine fashion, and placed under general anesthesia. Her left lower extremity was then prepped and draped in usual sterile fashion. A time-out was initiated. The correct patient and procedure were confirmed and identified. The patient did receive her preoperative prophylactic antibiotics. The left lower extremity was then exsanguinated and tourniquet was inflated to 300 mmHg. Approximately 15 cm longitudinal incision was made centered over the anterior aspect of the left knee. Dissection was then taken to the extensor mechanism and a medial parapatellar arthrotomy was performed. The patella was everted and dislocated laterally and the knee was flexed in the fat pad. There were multiple osteophytes and heterotopic bone superior to the patella that were removed. Medial lateral meniscus and ACL were all excised exposing the distal femur. Excess hypertrophic synovium was also excised within the suprapatellar pouch. The patient had an MRI of the left knee preoperatively for surgical planning and creation of cutting blocks. The cutting block was then placed over the distal femur and pins were then placed. The distal femoral cutting block was then placed over the pins. An dean wing was then used to ensure proper depth cut and the distal femur was then cut. The chamfer cutting guide was then placed over the distal end of the femur. Anterior, posterior cuts as well as anterior and posterior chamfer cuts were then made again confirming proper depth of the cut using an Dean wing. Excess bone remnants were then sent to pathology for further evaluation. Next, attention was taken to the proximal tibia. A tibial jig and tibial cutting block was then placed on proximal aspect of the left tibia and locked into position. Pins were then placed and alignment guide was then used to confirm proper alignment of the cut and then coronal and sagittal planes. Once this was confirmed, the cutting jig was placed over the pins and the proximal tibia was cut. Sizing trays were then selected and size 10 mm spacer was used and there was good overall balance in flexion and extension. Next, the trial implants were then placed using the size 10 standard CR femur and a size F tibia with a 10 mm poly. There was overall good range of motion and good stability Trial implants were then removed. The wound was then irrigated thoroughly with normal saline and the knee was then injected with 30 cc of 0.5% Marcaine both in the posterior capsule and mediallateral gutters as well as quadriceps tendon and periosteum. The tibia was then punched. The femur was drilled. The cement was then prepared on the back table. Cement was then placed first on the tibial surface followed by size F tibia with a stem given her elevated BMI. Excess cement was removed with [place] elevators. Size 10 standard CR femur was then placed on the distal femur after cement was placed on the distal femur. Excess cement was then removed and a size 10 mm trial poly was then placed. The knee was held in extension as the cement hardened. Undersurface of the patella was prepared debriding osteophytes using rongeurs as well as osteophytes had been debrided off the proximal tibia with rongeurs and osteotomes to aid with the medial tightness. Cement was placed on the undersurface of the patella after it was cut and a size 32 patella was placed. Once the cement was hardened, the knee was ranged, there was good overall stability both in flexion, extension and as well as stability with varus and valgus stresses. Trial poly was then removed and a size 10 mm CR poly was then placed and locked into position. The knee was then ranged again. There was good overall range of motion both for flexion and extension with good stability. The wound was then irrigated again thoroughly with normal saline using pulse lavage. Tourniquet was let down. Hemostasis was achieved using Bovie electrocautery. Extensor mechanism was then approximated using a #1 Vicryl bothin interrupted and running fashion. The fascia was then approximated using 0 Vicryl. Subcutaneous tissue was approximated with a 2-0 Vicryl. Skin was approximated using susanna. Sterile dressings were applied. The patient was awakened and transferred back in stable condition Complications: None Implants: Biomet Annette Persona 10 CR femur, F tibia w/ stem, 32 patella, 10 CR poly Fluids & blood products: per anesthesia record; TT: 90 mins @ 300 mmHg Transferred to: Recovery Room Condition: Good
[2021-02-01 21:49] VITALS: O2SAT 96
[2021-02-02] MEDS: CEFAZOLIN/SWI 2gm 2 GM/20 ML SYR IV SCH ×2 (00:48→09:25)
[2021-02-02] MEDS: MORPHINE 2 MG/ML SYR IV PRN ×3 (05:20→14:06)
[2021-02-02 05:34] LABS: Hematocrit 35.2 % (36.0-45.0)
[2021-02-02] MEDS ORDERED: ENOXAPARIN 30 MG/0.3 ML SQ SCH (06:00)
[2021-02-02] MEDS: HYDROCODONE/APAP 7.5/325 MG TAB PO PRN ×2 (07:35→15:05)
[2021-02-02] MEDS ORDERED: PARoxetine HCL 10 MG TAB PO SCH (09:00)
--- NOTE | 2021-02-02 13:05 | P.DS ---
Admission Date: 02/01/21 Discharge Date: 02/02/21 Disposition: ROUTINE DISCHARGE Discharge Condition: GOOD Reason for Admission: s/p L TKA Consultations: none Procedures: L TKA Brief History of Present Illness: Kenia is a 55-year-old female who was admitted after undergoing left total knee arthroplasty on February 01, 2021. Hospital Course: Kenia was admitted to the floor postoperatively in stable condition. Physical therapy was consulted to aid with mobilization. She mobilized safely and was discharged on February 02, 2021 in stable condition. She will take Xarelto after discharge for DVT prophylaxis. Vital Signs/Physical Exam: Temp Pulse Resp BP Pulse Ox 99.1 F 86 18 124/64 98 02/02/21 08:00 02/02/21 08:00 02/02/21 09:55 02/02/21 08:00 02/02/21 09:55 Laboratory Data at Discharge: WBC 4.00 K/uL (4.3-10.9) L 01/27/21 08:45 Hgb 11.9 g/dL (12.0-15.0) L 02/02/21 05:00 Hct 35.2 % (36.0-45.0) L 02/02/21 05:00 Plt Count 215 K/uL (152-406) 01/27/21 08:45 PT 10.2 SECONDS (9.5-12.5) 01/27/21 08:45 INR 0.89 01/27/21 08:45 APTT 33.8 SECONDS (24.3-36.9) 01/27/21 08:45 Sodium 143 mmol/L (136-145) 01/27/21 08:45 Potassium 4.4 mmol/L (3.5-5.1) 01/27/21 08:45 BUN 11 mg/dL (7-18) 01/27/21 08:45 Creatinine 0.81 mg/dL (0.55-1.3) 01/27/21 08:45 Glucose 100 mg/dL (74-106) 01/27/21 08:45 Home Medications: Cyanocobalamin [Vitamin B-12*] 1,000 mcg IM SEECOM 01/27/21 Paroxetine HCl [Paxil] 20 mg PO DAILY 01/27/21 Hydrocodone 7.5/APAP 325 [[place] 7.5/325 mg*] 1 tab PO Q4H PRN tab 02/02/21 Physician Discharge Instructions: Keep dressing clean dry and intact. Continue use of thigh-high CRYSTAL hose for 2 weeks. Begin Xarelto tomorrow morning on February 03, 2021. Follow-up with Dr. Nelson in 2 weeks for staple removal. Diet: Regular Activity: Weight bearing as tolerated Followup: Mikey Nelson MD [ACTIVE - CAN ADMIT] - 1-2 Weeks
[2021-02-02 13:59] VITALS: BP 128/69; TEMP 99.4
== END 2021-02-02 18:23 | disposition home or self-care (01) ==
LOC: OR 06:10 → 2ND 10:27
PROVIDERS: ADMIT Orthopaedic Surgery Sports Medicine; ATTEND Orthopaedic Surgery Sports Medicine
PROC: 0SRD069 Replacement of Left Knee Joint with Oxidized Zirconium on Polyethylene Synthetic Substitute, Cemented, Open Approach (ICD-10-PCS; principal; 2021-02-01 07:30)
DX: M17.12 Unilateral primary osteoarthritis, left knee (principal); E66.9 Obesity, unspecified; Z68.34 Body mass index [BMI] 34.0-34.9, adult
CPT/HCPCS: 85025; 80048; 36415 ×3; 85610; 88305; 88311; 85730; 85018 ×2; 85014 ×2; 71046; 73560; 97110 ×2; 97116 ×2; 97139; 97161; 97530; 94010 ×2; 27447; U0002; J2704; J1650; J2250; J3010; J1100 ×2; J2270 ×3; J1170; J2710; J0690 ×2; G0378 ×3; J7120 ×2; J2405; G0379

== ENCOUNTER 2021-07-19 06:00 | Observation (INO) | payer MEDICARE ==
--- NOTE | 2021-07-13 10:55 | RAD REPORT ---
EXAM DESCRIPTION: Dejah Diane (2 Views)07/13/2021 10:42 am CLINICAL HISTORY: Preop for knee surgery COMPARISON: 2020 FINDINGS: The lungs appear clear of acute infiltrate. The heart is normal size IMPRESSION: No acute abnormalities displayed
[2021-07-13 11:10] LABS: Absolute Lymphocytes (CBC) 1.1 K/uL (0.7-4.9); Hematocrit 36.6 % (36.0-45.0); Lymphocytes % 25.7 % (15.3-44.8); MPV 9.1 fL (7.6-11.3); RBC Red Blood Cell Count 4.18 M/uL (3.86-4.86)
[2021-07-13 11:21] LABS: Potassium 4.3 mmol/L (3.5-5.1)
[2021-07-13 11:29] LABS: Protime INR 0.9
[2021-07-19] MEDS ORDERED: MIDAZOLAM HCL 2 MG/2 ML INJ ONE (06:20)
[2021-07-19] MEDS ORDERED: LIDOCAINE 1% MPF 5 ML VIAL ONE (06:20)
[2021-07-19] MEDS ORDERED: FENTANYL CITR 100 MCG/2 ML ONE (06:20)
[2021-07-19] MEDS ORDERED: BUPIVACAINE 0.25% PF 10 ML VIAL ONE (06:20)
[2021-07-19] MEDS ORDERED: dexAMETHasone 10 MG/ML VIAL ONE ×2 (06:20→08:47)
[2021-07-19] MEDS ORDERED: CEFAZOLIN/SWI 2gm 2 GM/20 ML SYR ONE (06:21)
[2021-07-19] MEDS ORDERED: BUPIVACAINE 0.5% PF 10 ML VIAL ONE ×2 (06:21→07:34)
[2021-07-19] MEDS ORDERED: Ringers Lactate 1,000 ML IV ONE (06:21)
[2021-07-19] MEDS ORDERED: GABAPENTIN 100 MG CAP ONE (06:27)
[2021-07-19] MEDS ORDERED: CELECOXIB 100 MG CAPSULE ONE (06:27)
[2021-07-19] MEDS ORDERED: ACETAMINOPHEN 500 MG TAB ONE (06:28)
[2021-07-19] MEDS ORDERED: Oxycodone HCl/Acetaminophen 1 TAB TAB ONE (06:28)
[2021-07-19] MEDS ORDERED: TRANEXAMIC ACID 1,000 MG/10 ML VIAL IV ONE (07:34)
[2021-07-19] MEDS ORDERED: LIDOCAINE 2% MPF 5 ML VIAL ONE (07:56)
[2021-07-19] MEDS ORDERED: propofoL 200 MG/20 ML VIAL IV ONE (07:56)
[2021-07-19] MEDS ORDERED: KETAMINE HCL 500 MG/5 ML VIAL ONE (07:56)
[2021-07-19] MEDS ORDERED: ONDANSETRON 4 MG/2 ML VIAL ONE (08:56)
[2021-07-19] MEDS ORDERED: HYDROMORPHONE HCL 1 MG/ML INJ ONE ×2 (09:11→13:28)
[2021-07-19] MEDS ORDERED: Phenylephrine HCl 10 MG/ML 1 ML VIAL ONE (10:20)
--- NOTE | 2021-07-19 11:31 | P.BOP ---
Preoperative diagnosis: right knee osteoarthritis, retained hardware right knee Postoperative diagnosis: same Primary procedure: right total knee arthroplasty Secondary procedure: removal of hardware right proximal tibia Brush Trimming Machine Setter: NONE,NONE Estimated blood loss: 30 cc Specimen: right knee bone remnants Findings: see dictation Anesthesia: General Complications: None Implants: Biomet Annette Persona 9 CR femur, F tibia w/ stem, 32 patella, 12 CR poly Fluids & blood products: per anesthesia record; TT: 104 mins @ 300 mmHg Transferred to: Recovery Room Condition: Good
[2021-07-19] MEDS ORDERED: ONDANSETRON 4 MG/2 ML VIAL IV PRN (11:32)
[2021-07-19] MEDS ORDERED: DOCUSATE NA 100 MG CAP PO PRN (11:32)
[2021-07-19] MEDS ORDERED: MORPHINE 4 MG/ML SYR IV PRN (11:32)
[2021-07-19] MEDS ORDERED: TRAMADOL HCL 50 MG TAB PO PRN (11:36)
[2021-07-19 12:21] LABS: Hematocrit 37.6 % (36.0-45.0)
--- NOTE | 2021-07-19 12:24 | RAD REPORT ---
EXAM DESCRIPTION: RAD - Knee Right 2 View - 07/19/2021 12:11 pm CLINICAL HISTORY: Post Opknee replaced COMPARISON: No comparisons FINDINGS: Portable AP and cross-table lateral views were obtained. Total knee prosthesis has been pl aced. No unexpected bone or implant finding. Normal anterior an intra-articular postoperative soft ti ssue changes are evident. Skin susanna are seen anteriorly. No suspicious or unexpected finding. IMPRESSION: Right total knee prosthesis now in place. No suspicious or unexpected finding.
[2021-07-19 12:41] VITALS: O2SAT 100
[2021-07-19] MEDS: HYDROMORPHONE HCL 1 MG/ML INJ ONE ×2 (12:53→12:58)
--- OUTSIDE RECORDS SUMMARY | 2021-07-19 14:04 | XMS REPORT | Continuity of Care Document ---
:1965 Author Organization [facility] t Address [address] [place] [address] Care Team Providers Name Role Phone Vj Olson MD, [place] Primary Care Physician [phone] Jhonny Zabala Attending Clinician Unavailable Sylvie Velazquez Attending Clinician Unavailable Bren CERON Attending Clinician Unavailable Physician, Primary or Family Admitting Clinician UnavailANA MARIA Merino Admitting Clinician Unavailable Payers Payer Name Policy Type Policy Number Effective Date Expiration Date [facility] [id number] 2021 (MEDICARE 00:00:00 REPLACEMENT HMO) Problems Condition Condition Condition Status Onset Resolution [...] Known DA [facility] [place] [facility] [address] No Known DA [facility] [place] 00:[facility]: [address] Clarithr Propensi Active Hiv Pt stated [facility] adverse 00:00: blotches Medical reaction 00 and they Center s itch CLARITHR Allergy Active Hives [facility]CIN 3-18 [facility] Center BIOXAN Adverse Active Info Not [facility] Reaction [facility] Family History Family Member Diagnosis Comments Start Date Stop Date Source Natural father Cancer [facility] Natural mother Hypertension [facility] Natural mother Kidney disease [facility] Natural mother Stroke [facility] Social History Social Habit Start Date Stop Date Quantity Comments Source History SDOH [facility] Frequency Medical [facility] History SDOH [facility] - Alcohol Std Drinks Medica [facility] Center History SDOH [facility] - Alcohol Binge Medical Chyna ter Alcohol intake 2019-06-10 2019-06-10 [facility] alcohol [facility] Center (finding) Tobacco use and 2019-06-03 2019-06-[address] [facility] [address] [facility] - exposure 00:00:00 00:00:00 [facility] Center Alcohol Comment 2019-06-03 2019-06-03 [facility] Sex Assigned At [address] - 00:[facility]00 [facility]:00 [facility] Center Smoking Status Start Date Stop Date Source Never [facility] Medications Ordered Filled Start Stop Current Ordering Indication Dosage Frequency Signature Comments Components Source Medication Medication Date Date Medication? Clinician (SIG) Name Name traMADoL 2019-0 Yes 50mg Take [address] [facility] [...] HCl Nelson defined [facility] PrednisoLON PrednisoLON Yes Mikey not [facility] Nelson defined [facility] Immunizations Ordered Immunization Filled Immunization Date Status Commen ts Source Name Name Influenza Four-QIV 2019-06-[address] [facility] - PF 3YR+ ([id number]) 00:00:00 Medical Center Procedures This patient has no known procedures. Plan of Care Planned Activity Planned Date Details Comments Source Future Scheduled 2022-06-[address] [facility] Test 00:[facility]:00 (procedure) [code = [facility] 25032785] Future Scheduled 2020-11-[address] [facility] - Test 00:00:00 (#1) [code = [facility] INFLUENZA VACCINE (#1)] Future Scheduled 2020-03-[address] [facility] - Test 00:00:00 (12+) [code = [facility] DEPRESSION SCREENING (12+)] Future Scheduled 2013 SHINGLES VACCINES ([address] [facility] - Test 00:00:00 of 2) [code = [facility] SHINGLES VACCINES (1 of 2)] Future Scheduled [address] [facility] - Test 00:00:00 malignant neoplasm of Medica l Center cervix (procedure) [code = 814843660] Future Scheduled 1982 DTAP/TDAP/TD VACCINES [facility] Test 00:[facility]:00 (1 - Tdap) [code = Medical C enter DTAP/TDAP/TD VACCINES (1 - Tdap)] Future Scheduled 1981 HEPATITIS C [facility]CRE[facility]ING [facility] Test 00:[facility]00 [code = HEPATITIS C Medical Center SCREENING] Future Scheduled 1975 COVID-19 VACCINE (1) [facility] Test 00:00:00 [code = COVID-[address] VACCINE (1)] Future Scheduled [address] [facility] - Test 00:00:00 malignant neoplasm of [facility] breast (procedure) [code = 314325293] Future Scheduled [address] [facility] - Test 00:00:00 malignant neoplasm of [facility] colon (procedure) [code = 984579537] Encounters Start End Encounter Admission Attending Care Care Encounter Source Date/Time Date/Time Type Type Clinicians Facility Department ID 2021-07-13 Outpatient Zabala, STLMLC STLC [id number] [facility]02 [facility] 2021-05-03 Outpatient Zabala, STLMLC STLC [id number] 09:39[facility]01 [facility] 2021-04-12 Outpatient Zabala, STLMLC STLC [id number] 14:30:12 [facility] 2021-04-12 Outpatient Zabala, STLC STLC [id number] 14:29:27 Stephen 36226 [facility] 2021-04-12 Outpatient Zabala, STLMLC STLC [id number] 14:19:08 Stephen 00608 [facility] 2021-04-12 Outpatient Zabala, STLC STLC [id number] 14:16:56 Stephen 36819 [facility] 2021-04-12 Outpatient Zabala, STLC STLC [id number] 14:15:28 Stephen 70850 [facility] 2021-04-12 [facility] [id number] 14:11:14 Stephen 49002 [facility] 2021-04-12 Outpatient Zabala, STLMLC STLMLC [id number] 13:05:55 Stephen 78307 [facility] 2021-04-12 Outpatient Zabala, STLMLC STLMLC [id number] 13:02:58 Stephen 10910 [facility] 2021-04-12 Outpatient Zabala, STLMLC STLMLC [id number] 13:01:28 Stephen 31675 [facility] 2021-04-12 Outpatient STLMLC STLMLC [id number] 12:50:30 97619 [facility] 2021-04-12 Outpatient STLMLC STLMLC [id number] 11:32:42 85972 [facility] 2020-12-09 Inpatient ALYSHA Velazquez, HCAWU SUG [id number] [facility] 08:[facility] Ta [address] [facility] 2021-07-17 2021-07-17 ambulatory STLMLC STLMLC [id number] [facility] 2021-07-13 2021-07-13 ambulatory STLMLC STLMLC [id number] [facility] 2021-07-06 2021-07-06 ambulatory STLMLC STLMLC [id number] [facility] 2021-06-01 2021-06-01 ambulatory STLMLC STLMLC [id number] [facility] 2021-05-25 2021-05-25 ambulatory STLMLC STLMLC [id number] [facility] 2021-05-08 2021-05-08 ambulatory STLMLC STLMLC [id number] [facility] 2021-05-04 2021-05-04 ambulatory STLMLC STLMLC [id number] [facility] 2021-05-04 2021-05-04 ambulatory STLMLC STLMLC [id number] [facility] 2021-03-23 2021-03-23 ambulatory STLMLC STLMLC [id number] [facility] 2021-03-22 2021-03-22 ambulatory STLMLC STLMLC [id number] [facility] 2021-03-07 2021-03-07 ambulatory STLMLC STLMLC [id number] [facility] 2021-03-07 2021-03-07 ambulatory STLMLC STLMLC [id number] [facility] 2021-02-27 2021-02-27 ambulatory STLMLC STLMLC [id number] [facility] 2021-02-16 2021-02-16 ambulatory STLMLC STLMLC [id number] [facility] 2021-02-07 2021-02-07 ambulatory STLMLC STLMLC [id number] [facility] 2021-02-07 2021-02-07 ambulatory STLMLC STLMLC [id number] [facility] 2021-02-02 2021-02-02 ambulatory STLMLC STLMLC [id number] [facility] 2021-01-27 2021-01-27 ambulatory STLMLC STLMLC [id number] [facility] 2021-01-26 2021-01-26 ambulatory STLMLC STLMLC [id number] [facility] 2021-01-12 2021-01-12 Outpatient DMG DMG [id number] [facility] 11:00:00 11:00:00 [facility] 2020-12-12 2020-12-12 ambulatory STLMLC STLMLC [id number] [facility] 2020-12-09 2020-12-09 Outpatient JJ Edward SUGSuzy [id number] [facility] 08:21:00 08:21:00 Ta 95 [facility] 2020-11-16 2020-11-16 Outpatient STLMLC STLMLC [id number] [facility] 2020-11-10 2020-11-10 Outpatient STLMLC STLMLC [id number] [facility] 2020-11-04 2020-11-04 Inpatient JJ Edward SUGSuzy [id number] [facility] 08:[facility] 08:00:00 Ta [address] [facility] 2020-09-21 2020-09-21 Outpatient STLMLC STLMLC [id number] [facility] 2020-08-09 2020-08-09 Outpatient STLMLC STLMLC [id number] [facility] 2020-08-09 2020-08-09 Outpatient STLMLC STLMLC [id number] [facility] 2020-08-09 2020-08-09 Outpatient STLMLC [facility]LMLC [id number] [facility] 2020-07-28 2020-07-28 Outpatient STLMLC STLMLC [id number] [facility] 2019-10-08 2019-10-08 Outpatient Neal Brazbhaskart [id number] 08:00:00 08:00[facility]00 [facility] 2019-06-03 2019-06-03 Outpatient [facility] [id number] SLE 04:29:00 04:29:00 [id number] Results Test Description Test Time Test Comments Results Result [facility] e Comments - NM MYOCRD SPECT 2020-12-13 R/S MULT 14:12:00 [facility] : 1965 Sex: F Patient Name: AURELIA MORFIN Unit No: [id number] EXAMS: CPT CODE: [id number] NM MYOCRD SPECT R/S MULT 11912 INDICATION: CAD. The patient underwent myocardial perfusion [...] Peggy Rowland RT(N) Transcrpt Date/Tm/Trnsp: 12/13/2020 (1412) GeovannyGSP Orig Print D/T: S: 12/13/2020 (8865) [facility] NAME: AURELIA MORFIN [address] [facility] [address] PHYS: [place] [address] : 1965 AGE: 55 SEX: F LOC: FEI PHONE #: [phone] EXAM DATE: 12/09/2020 STATUS: DEP CLI FAX #: [phone] RADIOLOGY NO: PAGE 1 Signed Report PHOSPHORUS 2019-06-14 05:44:00 Test Item Value Reference Range Interpretation Comme nts PHOSPHORUS (BEAKER) (test code = 604) 4.7 mg/dL 2.3-4.7 Supermarket Manager ID - BEKA [id number] 05:44:00 Test Item Value Reference Range Interpretation Comments MAGNESIUM (BEAKER) (test code = 2.0 mg/dL 1.6-2.6 627) Supermarket Manager ID - BEKA MBASIC METABOLIC [id number] 05:44:00 Test Item Value Reference Range Interpretation Comments SODIUM (BEAKER) 140 meq/L 136-145 (test code = 381) POTASSIUM (BEAKER) 4.7 meq/L 3.5-5.1 (test code = 379) CHLORIDE (BEAKER) 109 meq/L 98-107 H (test code = 382) CO2 (BEAKER) (test 25 meq/L -29 code = 355) BLOOD UREA NITROGEN 6 [...] S NOT APPLICABLE FOR DIALYSIS PATIEN TS. Supermarket Manager ID - BEKA MCBC W/PLT COUNT & AUTO [id number] 04:57:00 Test Item Value Reference Range Interpretation [...] 0-1 PERCENT (BEAKER) (test code = 2801) [id number] 05:16:00 Test Item Value Reference Range Interpretation Comments PHOSPHORUS (BEAKER) (test code = 4.5 mg/dL 2.3-4.7 604) Supermarket Manager ID Kamran CHAVEZ [id number] 05:16:00 Test Item Value Reference Range Interpretation Comments MAGNESIUM (BEAKER) (test code = 2.1 mg/dL 1.6-2.6 627) Supermarket Manager ID - KATHY LBASIC METABOLIC [id number] 05:16:00 Test Item Value Reference Range Interpretation [...] S NOT APPLICABLE FOR DIALYSIS PATIEN TS. Supermarket Manager ID - KATHY LCBC W/PLT COUNT & AUTO [id number] 04:31:00 Test Item Value Reference Range Interpretation [...] 0-1 PERCENT (BEAKER) (test code = 2801) [id number] 05:31:00 Test Item Value Reference Range Interpretation Comments PHOSPHORUS (BEAKER) (test code = 3.2 mg/dL 2.3-4.7 604) Supermarket Manager ID Kamran CHAVEZ [id number] 05:31:00 Test Item Value Reference Range Interpretation Comments MAGNESIUM (BEAKER) (test code = 2.0 mg/dL 1.6-2.6 627) Supermarket Manager ID - KATHY LBASIC METABOLIC [id number] 05:31:00 Test Item Value Reference Range Interpretation [...] S NOT APPLICABLE FOR DIALYSIS PATIEN TS. Supermarket Manager ID Kamran CHAVEZ LCBC W/PLT COUNT & AUTO [id number] 04:48:00 Test Item Value Reference Range Interpretation [...] PERCENT (BEAKER) (test code = 2801) TISSUE [id number] 13:18:00Surgical Pathology Report Case: [id number] Authorizing Provider: Tony Cerda II, MD Collected: 06/09/2019 01:55 PM Ordering Location: [facility] Received: 06/09/2019 02:04 PM SERVICES Pathologist: [...] NODES (0/6) Signing Pathologist Direct Phone Line: [phone] signed by Layton Latif MD on 06/11/2019 [...] mesothelial proliferation suggest the possibility of remote perforation.[id number] massA. Gastric. Simple gastrectomy, left partial hepatectomy; [...] adjacent tissue, full thickness, entirely submitted; A19, manufacturer representative sectionof uninvolved stomach; A20, three lymph [...] evaluated Immunohistochemistry technical testing was performed at [facility], Pathology Laboratory where it was developed and [...] (test code = 2.7 mg/dL 2.3-4.7 604) Supermarket Manager ID - BEKA [id number] 07:07:00 Test Item Value Reference Range Interpretation Comments MAGNESIUM (BEAKER) (test code = 1.9 mg/dL 1.6-2.6 627) Supermarket Manager ID - BEKA MBASIC METABOLIC [id number] 07:07:00 Test Item Value Reference Range Interpretation [...] S NOT APPLICABLE FOR DIALYSIS PATIEN TS. Supermarket Manager ID - BEKA MCBC W/PLT COUNT & AUTO [id number] 06:52:00 Test Item Value Reference Range Interpretation [...] = 2801) CBC W/PLT COUNT & AUTO [id number] 04:56:00 Test Item Value Reference Range Interpretation [...] (BEAKER) (test code = 2801) BASIC METABOLIC [id number] 04:35:00 Test Item Value Reference Range Interpretation [...] S NOT APPLICABLE FOR DIALYSIS PATIEN TS. Supermarket Manager ID - BEKA [id number] 16:54:00 Test Item Value Reference Range Interpretation Comments PHOSPHORUS (BEAKER) (test code = 4.5 mg/dL 2.3-4.7 604) Supermarket Manager ID - [id number] 16:54:00 Test Item Value Reference Range Interpretation Comments MAGNESIUM (BEAKER) (test code = 1.9 mg/dL 1.6-2.6 627) Supermarket Manager ID - EMERSONBASIC METABOLIC [id number] 16:54:00 Test Item Value Reference Range Interpretation [...] S NOT APPLICABLE FOR DIALYSIS PATIEN TS. Supermarket Manager ID - [facility] SYSTEMSONBASIC METABOLIC [id number] 05:01:00 Test Item Value Reference Range Interpretation [...] S NOT APPLICABLE FOR DIALYSIS PATIEN TS. Supermarket Manager ID - BEKA MPROTHROMBIN [id number] 04:35:00 Test Item Value Reference Range Interpretation [...] mechanical heart valves.CBC W/PLT COUNT & AUTO [id number] 04:30:00 Test Item Value Reference Range Interpretation [...] PERCENT (BEAKER) (test code = 2801) HEMOGLOBIN [id number] 18:58:00 Test Item Value Reference Range Interpretation Comments HEMOGLOBIN A1C (BEAKER) (test code = 5.9 % 4.3-6.1 368) LIPID [id number] 11:20:00 Test Item Value Reference Range Interpretation [...] Borderline 130-159 High 160-189 Very High >=190 Supermarket Manager ID - NTPBASIC METABOLIC [id number] 04:45:00 Test Item Value Reference Range Interpretation [...] S NOT APPLICABLE FOR DIALYSIS PATIEN TS. Supermarket Manager ID - PIAYA LCBC W/PLT COUNT & AUTO [id number] 04:17:00 Test Item Value Reference Range Interpretation [...] (BEAKER) (test code = 2801) HEMOGLOBIN AND [id number] 05:46:00 Test Item Value Reference Range Interpretation Comments HEMOGLOBIN (BEAKER) (test code = 8.8 GM/DL 11.2-15.7 L 410) HEMATOCRIT (BEAKER) (test code = 27.4 % 34.1-44.9 L 411) Supermarket Manager ID - [id number] W/PLT COUNT & AUTO [id number] 05:46:00 Test Item Value Reference Range Interpretation [...] (BEAKER) (test code = 2801) HEMOGLOBIN AND [id number] 15:16:00 Test Item Value Reference Range Interpretation Comments HEMOGLOBIN (BEAKER) (test code = 8.4 GM/DL 11.2-15.7 L 410) HEMATOCRIT (BEAKER) (test code = 27.0 % 34.1-44.9 L 411) Supermarket Manager ID - [id number] ANTIGEN (CEA)2019-06-06 05:41:00 Test Item Value Reference Range Interpretation Comments CARCINOEMBRYONIC ANTIGEN (BEAKER) 1.1 ng/mL 0.0-5.0 (test code = 685) Supermarket Manager ID - PIAYA LBASIC METABOLIC [id number] 05:18:00 Test Item Value Reference Range Interpretation [...] S NOT APPLICABLE FOR DIALYSIS PATIEN TS. Supermarket Manager ID - BEKA MHEMOGLOBIN AND [id number] 04:58:00 Test Item Value Reference Range Interpretation Comments HEMOGLOBIN (BEAKER) (test code = 7.9 GM/DL 11.2-15.7 L 410) HEMATOCRIT (BEAKER) (test code = 24.8 % 34.1-44.9 L 411) Supermarket Manager ID - [id number] W/PLT COUNT & AUTO [id number] 04:58:00 Test Item Value Reference Range Interpretation [...] (BEAKER) (test code = 2801) HEMOGLOBIN AND [id number] 16:02:00 Test Item Value Reference Range Interpretation Comments HEMOGLOBIN (BEAKER) (test code = 8.5 GM/DL 11.2-15.7 L 410) HEMATOCRIT (BEAKER) (test code = 26.6 % 34.1-44.9 L 411) Supermarket Manager ID - [id number], [id number] 10:43:00Triphase CT: gastric mass on EUS was [...] of hematoma withoutactive bleeding seen. Signed: Kalyn Hursteport Verified Date/Time: 06/05/2019 10:43:36 Reading Location: [place] [address] CT Body Reading Room RAD, CHEST, 1 VIEW, NON DEPT 2019-06-05 10:31:00Reason for exam:->coughFINAL REPORT TECHNIQUE: Frontal chest radiograph dated 06/05/2019. CLINICAL HISTORY: Cough COMPARISON STUDY: None IMPRESSION:Lungs are clear. No pleural effusion or pneumothorax.Cardiomediastinal silhouette is normal in size. No pulmonary edema. Degenerative changes are seen inthe spine. Signed: Latisha Hernandez MDReport Verified Date/Time: 06/05/2019 10:31:41 Reading Location: [address] Radiology Reading Room TISSUE [id number] 08:47:00Surgical Pathology Report Case: [id number] Authorizing Provider: Anthony Rae Collected: 06/04/2019 1250 MD Blaze OrderingLocation: [address] Received: 06/04/2019 1522 Service Pathologist: Daniel Reid MD Specimen: Mass, Remnant Gastric Mass Bx PART A GASTRIC BIOPSY FOR SUSPECTED MASS:SPECIMEN CONSISTS PREDOMINANTLY OF BLOOD AND RARE BENIGN MUCOSAL TISSUE.NO MORPHOLOGIC EVIDENCE OF MALIGNANCY.THE SAMPLED MATERIAL MAY NOT BE FULLY SALES SUPPORT ASSOCIATE (SEE DIAGNOSTIC COMMENT). Signing Pathologist Direct Phone Line: [phone] signed by Daniel Reid MD on 06/05/2019 at 8:47 AMThis patient has a a reported clinical history of a gastric mass as per the electronic medical record in [facility]. There is no evidence of malignancy in the current biopsy however the sampled material may not be fully manufacturer representative. If there is a clinical concern fora malignancy, additional tissue based studies may be warranted.[id number] massMass The specimen is received in formalin [...] evaluated Immunohistochemistry technical testing was performed at [facility], Pathology Laboratory where it was developed and [...] qualified to perform high complexity clinical laboratory testing.[facility], Department of Pathology, [address] [place], [place] [id number], [facility], [facility], [address] [place] [address], [facility], [facility] of [facility]ology, [address] [place] [address], QBPGP METABOLIC [id number] 05:20:00 Test Item Value Reference Range Interpretation [...] S NOT APPLICABLE FOR DIALYSIS PATIEN TS. Supermarket Manager ID - MARISOL WCBC W/PLT COUNT & AUTO [id number] 05:05:00 Test Item Value Reference Range Interpretation [...] = 2801) CBC W/PLT COUNT & AUTO [id number] 21:50:00 Test Item Value Reference Range Interpretation [...] (BEAKER) (test code = 2801) BASIC METABOLIC [id number] 18:05:00 Test Item Value Reference Range Interpretation [...] S NOT APPLICABLE FOR DIALYSIS PATIEN TS. Supermarket Manager ID - [id number] 04:52:00 Test Item Value Reference Range Interpretation Comments FERRITIN (BEAKER) (test code = 361) 6 ng/mL 5-275 Supermarket Manager ID - MARISOL LITTLE, TIBC, % SAT. (WITHOUT FERRITIN)2019-06-04 04:32:00 Test Item Value Reference Range Interpretation Comments IRON (BEAKER) (test code = 547) 105.0 ug/dL 40.0-160.0 TOTAL IRON BINDING CAPACITY 250 ug/dL 250-450 (BEAKER) (test code = 769) IRON % SATURATION (2) (BEAKER) 42 % 20-55 (test code = 2590) Supermarket Manager ID - MARISOL WHEPATIC FUNCTION [id number] 07:07:00 Test Item Value Reference Range Interpretation [...] (test code = 8 U/L 6-55 347) Supermarket Manager ID - BEKA MBASIC METABOLIC [id number] 07:07:00 Test Item Value Reference Range Interpretation [...] S NOT APPLICABLE FOR DIALYSIS PATIEN TS. Supermarket Manager ID - BEKA MCBC W/PLT COUNT & AUTO [id number] 06:31:00 Test Item Value Reference Range Interpretation [...]
[2021-07-19] MEDS: CEFAZOLIN/SWI 2gm 2 GM/20 ML SYR IV SCH ×2 (16:00→22:09)
[2021-07-19 16:22] VITALS: BMI 34.6
--- NOTE | 2021-07-19 21:41 | P.OP ---
Preoperative diagnosis: right knee osteoarthritis, retained hardware right knee Postoperative diagnosis: same Primary procedure: right total knee arthroplasty Secondary procedure: removal of hardware right proximal tibia Anesthesia: general Estimated blood loss: 30 c Specimen: right knee bone remnants Findings: see dictation Operative Technique: Indication For Procedure: Kenia is a 56 year-old female presenting to my clinic with signs, symptoms and x-ray findings consistent with severe right knee osteoarthritis. She also had prior tibial tuberosity surgery in the past with retained screws. I discussed with the patient at length risks and benefits associated with operative and nonoperative treatment. She had failed conservative treatment measures and had significant difficulties with ADLs secondary to her pain. We discussed operative treatment and elected to proceed with right total knee arthroplasty with removal of hardware. She expressed understanding and elected to proceed with operative treatment. Description Of Procedure: After informed consent was obtained, the patient was identified in the preoperative holding area. The right lower extremity was marked. The patient was then taken to the PACU where she underwent a right lower extremity adductor canal block performed by Anesthesia. She was then taken to the operating room, transferred to the operating table in supine fashion, and placed under general anesthesia. Her right lower extremity was then prepped and draped in usual sterile fashion. A time-out was initiated. The correct patient and procedure were confirmed and identified. The patient did receive her preoperative prophylactic antibiotics. The right lower extremity was then exsanguinated and tourniquet was inflated to 300 mmHg. The patient had severe ROM limitations noted at the beginning of the case with ROM 3-90 degrees. . Approximately 15 cm longitudinal incision was made centered over the anterior aspect of the right knee. Dissection was then taken to the extensor mechanism and a medial parapatellar arthrotomy was performed. The patella was everted and dislocated laterally and the knee was flexed. Attention was first take to remove the 2 anterior to posterior screws. They were removed without complication and after removal, the tibial tuberosity remained stable. Medial and lateral meniscus and ACL were all excised exposing the distal femur. Excess hypertrophic synovium was also excised within the suprapatellar pouch. The patient had an MRI of her right knee preoperatively for surgical planning and creation of cutting blocks. The cutting block was then placed over the distal femur and pins were then placed. The distal femoral cutting block was then placed over the pins. Knee joint was then used to ensure proper depth cut and the distal femur was then cut. The chamfer cutting guide was then placed over the distal end of the femur. Anterior, posterior cuts as well as anterior and posterior chamfer cuts were then made again confirming proper depth of the cut using an Dean wing. A curved osteotome was then used to carefully remove the posterior osteophytes off the posterior aspect of the condyles. Excess bone remnants were then sent to pathology for further evaluation. Next, attention was taken to the proximal tibia. A tibial jig and tibial cutting block was then placed on proximal aspect of the right tibia and locked into position. Pins were then placed and alignment guide was then used to confirm proper alignment of the cut and then coronal and sagittal planes. Once this was confirmed, the cutting jig was placed over the pins and the proximal tibia was cut. Sizing trays were then selected and size 10 mm spacer was used and there was noted to be some minimal gapping in flexion and extension. Next, the trial implants were then placed using the size 9 standard CR femur and a size F tibia with an 12 mm CR poly. There was overall good range of motion and good stability trial implants were then removed. The wound was then irrigated thoroughly with normal saline and the knee was then injected with 30 cc of 0.5% Marcaine both in the posterior capsule and mediallateral gutters as well as quadriceps tendon and periosteum. The tibia was then punched. The femur was drilled. The cement was then prepared on the back table. Cement was then placed first on the tibial surface followed by size F tibia with a stem secondary to her prior medial tibial collapse. Excess cement was removed with [place] elevators. Size 9 standard CR femur was then placed on the distal femur after cement was placed on the distal femur. Excess cement was then removed and a size 12 mm trial CR poly was then placed. The knee was held in extension as the cement hardened. Undersurface of the patella was prepared debriding osteophytes using rongeurs as well as osteophytes had been debrided off the proximal tibia with rongeurs and osteotomes to aid with the medial tightness. Cement was placed on the undersurface of the patella after it was cut and a size 32 patella was placed. Once the cement was hardened, the knee was ranged, there was good overall stability both in flexion, extension and as well as stability with varus and valgus stresses. Trial poly was then removed and a size 12 mm CR poly was then placed and locked into position. The knee was then ranged again. There was good overall range of motion both for flexion and extension with good stability. The wound was then irrigated again thoroughly with normal saline using pulse lavage. Tourniquet was let down. Hemostasis was achieved using Bovie electrocautery. Extensor mechanism was then approximated using a #1 Vicryl bothin interrupted and running fashion. The fascia was then approximated using 0 Vicryl. Subcutaneous tissue was approximated with a 2-0 Vicryl. Skin was approximated using susanna. Sterile dressings were applied. The patient was awakened and transferred back in stable condition Complications: None Implants: Bi[employer] Annette Persona 9 CR femur, F tibia w/ stem, 12 CR poly, 32 patella Fluids & blood products: per anesthesia record; TT: 104 mins @ 300 mmHg Transferred to: Recovery Room Condition: Good
[2021-07-19] MEDS: HYDROCODONE/APAP 7.5/325 MG TAB PO PRN (22:09)
[2021-07-20 05:59] LABS: Hematocrit 32.4 % (36.0-45.0)
[2021-07-20] MEDS ORDERED: ENOXAPARIN 30 MG/0.3 ML SQ SCH (06:00)
[2021-07-20 06:24] VITALS: BP 138/78; TEMP 97.8
[2021-07-20] MEDS: CEFAZOLIN/SWI 2gm 2 GM/20 ML SYR IV SCH (06:29)
[2021-07-20] MEDS: HYDROCODONE/APAP 7.5/325 MG TAB PO PRN (08:23)
[2021-07-20] MEDS ORDERED: CELECOXIB 100 MG CAPSULE PO SCH (09:00)
== END 2021-07-20 09:04 | disposition home or self-care (01) ==
LOC: OR 06:00 → 2ND 13:59
PROVIDERS: ADMIT Orthopaedic Surgery Sports Medicine; ATTEND Orthopaedic Surgery Sports Medicine
PROC: 0SRC069 Replacement of Right Knee Joint with Oxidized Zirconium on Polyethylene Synthetic Substitute, Cemented, Open Approach (ICD-10-PCS; principal; 2021-07-19 08:00)
DX: M17.11 Unilateral primary osteoarthritis, right knee (principal); E66.9 Obesity, unspecified; Z68.34 Body mass index [BMI] 34.0-34.9, adult; Z96.652 Presence of left artificial knee joint; Z79.01 Long term (current) use of anticoagulants; Z88.1 Allergy status to other antibiotic agents; Z85.828 Personal history of other malignant neoplasm of skin; Z98.84 Bariatric surgery status; Z90.710 Acquired absence of both cervix and uterus; Z28.310 Unvaccinated for COVID-19; Z20.822 Contact with and (suspected) exposure to COVID-19; Z83.3 Family history of diabetes mellitus; Z82.49 Family history of ischemic heart disease and other diseases of the circulatory system
CPT/HCPCS: 27447; 93005; 85025; 80048; 36415 ×3; 85610; 88304; 88311; 85730; 85018 ×2; 85014 ×2; 71046; 73560; 97116; 97161; 97530; 94010; U0003; J2704; J2370; J1650; J2250; J3010; J1100 ×2; J1170 ×2; J0690 ×3; J7120; J2405 ×2; G0379; G0378 ×2; 88305

== ENCOUNTER 2022-01-08 07:12 | Day surgery (SDC) | payer MEDICARE ==
[2022-01-05 11:39] LABS: Absolute Lymphocytes (CBC) 1.1 K/uL (0.7-4.9); Lymphocytes % 25.4 % (15.3-44.8); MCV 86.4 fL (80-100); MPV 9.6 fL (7.6-11.3); RBC Red Blood Cell Count 4.52 M/uL (3.86-4.86)
[2022-01-05 11:51] LABS: Potassium 4.7 mmol/L (3.5-5.1)
[2022-01-08] MEDS ORDERED: Ringers Lactate 1,000 ML IV ONE (07:29)
[2022-01-08] MEDS ORDERED: propofoL 200 MG/20 ML VIAL IV ONE (08:10)
[2022-01-08] MEDS ORDERED: FENTANYL CITR 100 MCG/2 ML ONE (08:11)
[2022-01-08] MEDS ORDERED: LIDOCAINE 2% MPF 5 ML VIAL ONE (08:11)
[2022-01-08] MEDS: CEFAZOLIN SODIUM 2 GM/VIAL ONE ×2 (08:11→08:37)
[2022-01-08] MEDS ORDERED: MIDAZOLAM HCL 2 MG/2 ML INJ ONE (08:11)
[2022-01-08] MEDS ORDERED: ROCURONIUM 50 MG/5 ML VIAL IV ONE (08:13)
[2022-01-08] MEDS ORDERED: ONDANSETRON 4 MG/2 ML VIAL ONE (08:14)
[2022-01-08] MEDS ORDERED: dexAMETHasone 10 MG/ML VIAL ONE (08:54)
[2022-01-08] MEDS: BUPIVACAINE 0.25% PF 30 ML VIAL ONE ×2 (08:58→09:30)
--- NOTE | 2022-01-08 10:22 | P.OP ---
Preoperative diagnosis: Ventral Incisional Hernias - Incarcerated Postoperative diagnosis: Ventral Incisional Hernias - Incarcerated Primary procedure: Laparoscopic Ventral Hernia Repair Secondary procedure: Laparoscopic Adhesiolysis > 90 minutes Anesthesia: GETA + Local Estimated blood loss: <5cc Specimen: none Findings: multiple Ventral Incisional Hernias - Incarcerated with small bowel Complications: None Implants: Bard Ventralite ST mesh 20cm x 25cm, sorbafix x 2 Transferred to: Recovery Room Condition: Good
[2022-01-08] MEDS: HYDROMORPHONE HCL 1 MG/ML INJ ONE ×4 (10:38→10:56)
[2022-01-08] MEDS ORDERED: KETOROLAC 30 MG/ML INJ ONE (10:40)
[2022-01-08] MEDS ORDERED: HYDROMORPHONE HCL 1 MG/ML INJ ONE (10:56)
[2022-01-08] MEDS: FENTANYL CITR 100 MCG/2 ML ONE ×2 (11:10→11:27)
[2022-01-08] MEDS ORDERED: HYDROCODONE/APAP 10/325 TAB ONE (11:48)
--- NOTE | 2022-01-08 13:26 | OP ---
Date of Procedure: 01/08/2022 Surgeon: Casper Ayoub MD, Preoperative Diagnosis: Incarcerated ventral incisional hernias. Postoperative Diagnosis: Incarcerated ventral incisional hernias. Procedures: 1.Laparoscopic ventral hernia repair with mesh. 2.Laparoscopic adhesiolysis greater than 90 minutes. Anesthesia: General endotracheal plus local 1% Marcaine. Estimated Blood Loss: Less than 5 cc. Specimen: None. Findings: 1.Multiple ventral incisional hernias with [place] cheese abdominal appearance at the midline. 2.Incarcerated small bowel noted. Complications: None. Implants: Bard Ventralight ST mesh with Echo Positioning System, 20 x 25 cm mesh used and SorbaFix a bsorbable fixation tacker x2. Disposition: The patient was transferred to the recovery room in good condition. Procedure In Detail: After informed consent obtained, the patient was brought to the operating room, prepped and draped in the usual sterile fashion after adequate anesthesia achieved. The area of the left upper quadrant was anesthetized with 0.25% Marcaine, sharply incised, and a 5 mm trocar was gracie maisha under direct vision without evidence of complication. There was no injury to the vital structure s upon entry into the abdomen. Insufflation was maintained at 15 mmHg. At this point, additional tr ocars were placed in the left lower quadrant. This was similarly anesthetized, sharply incised and 1 2 mm trocar was placed under direct vision without evidence of complication. Additional trocar place d in the right lower quadrant. This was similarly anesthetized, sharply incised and 5 mm trocar plac ed under direct vision without evidence of complication. Using the LigaSure device, I performed an a dhesiolysis between omentum as well as multiple loops of small bowel to the anterior abdominal wall w ith multiple hernias using meticulous combination of both LigaSure and sharp dissection without injur y to the bowel throughout the procedure. The adhesions were taken down in just over 90 minutes time. At this point, the abdominal wall was inspected. The hernia was sized and found to be approximatel y 28 x 15 cm, 20 in the longitudinal axis. At this point, closure was not an option as there were mu ltiple [place] cheese type appearance to the abdominal wall. At this point, I opted to place a 25 x [address] mesh with Echo Positioning System. It was brought in through the 12 mm troca r and after anesthetizing the skin and placing the Sukhi-Tahir through the central portion of the defect, I then deployed the balloon mesh at this point and oriented the mesh in a longitudinal acces s. There was then a 5 cm overlap in the interpretation of the mesh. Ultimately, I placed SorbaFix f ixation tacks and a single crown at this point circumferentially around. I then removed the balloon through the 12 mm trocar port without evidence of complication. I then ultimately found the balloon deployment system to be intact on the back table and used a second crown of SorbaFix absorbable fixat ion tacks to the anterior abdominal using 60 tacks in its entirety with good apposition of the mesh t o the anterior abdominal wall. At this point, the mesh found to be in good position. I desufflated the abdomen, inspected the area, had good apposition once again, and no additional hernias appreciate d. At this point, I removed the 12 mm trocar and closed the trocar site using a Sukhi-Tahir sutu re passer with 0 Vicryl in an interrupted fashion with good approximation of tissues. The abdomen wa s completely desufflated under direct visualization without evidence of complication. Remaining troc ars were removed. All skin incisions were copiously irrigated and closed with a 4-0 Monocryl in a ru nning fashion. Dermabond placed over top. The patient tolerated the procedure well without evidence of complication and transferred to PACU in good condition. All counts were correct at the end of the case. DARIA/TORI Voice ID: [id number] Report ID: [id number]
[2022-01-08 13:58] VITALS: BP 143/78; TEMP 97.6; O2SAT 99
== END 2022-01-08 12:40 | disposition home or self-care (01) ==
LOC: OR 07:12
PROVIDERS: ATTEND Surgery
PROC: 0DNU4ZZ Release Omentum, Percutaneous Endoscopic Approach (ICD-10-PCS; 2022-01-08)
PROC: 0WUF4JZ Supplement Abdominal Wall with Synthetic Substitute, Percutaneous Endoscopic Approach (ICD-10-PCS; principal; 2022-01-08 08:00)
DX: K43.6 Other and unspecified ventral hernia with obstruction, without gangrene (principal); K66.0 Peritoneal adhesions (postprocedural) (postinfection); K21.9 Gastro-esophageal reflux disease without esophagitis
CPT/HCPCS: 85025; 80048; 36415; 49653; 49329; J2704; J2001; J2250; J3010 ×2; J1100; J1170 ×2; J7120; J2405

== ENCOUNTER 2022-04-16 07:39 | Emergency (ER) | payer MEDICARE ==
--- OUTSIDE RECORDS SUMMARY | 2022-04-16 07:47 | XMS REPORT | Continuity of Care Document ---
:[address] [facility] t Address [address] [place] [address] [address] [place] [address] Care Team Providers Name Role Phone Vj Olson MD, Stephen Godfrey Primary Care Physician [phone] Stephen Zabala Attending Clinician Unavailable Ta Velazquez Attending Clinician Unavailable ARBEN CERON Attending Clinician Unavailable Stephen Zabala Admitting Clinician Unavailable Physician, No Primary or Family Admitting Clinician UnavailMAYCO Newman Admitting Clinician Unavailable Payers Payer Name Policy Type Policy Effective Date Expiration Date Sour ce Number [facility] [id number] 2021-02-15 (MEDICARE 00:00:00 REPLACEMENT O) Ambetter from [id number] [facility] Ambetter from [id number] [facility] Ambetter from [id number] [facility] Ambetter from [id number] [facility] Ambetter from [id number] [facility] Ambetter from [id number] [facility] Ambetter from [id number] [facility] Ambetter from [id number] [facility] Ambetter from [id number] [facility] Problems Condition Condition Condition Status Onset Resolution Last Treating Co mments Source Name Details Category Date Date Treatment Clinician Date Acute Acute Disease Active [facility] St upper GI upper GI 3-24 [facility] bleed bleed 00:00: Medical 00 Center Acute on Acute on Disease Active [facility] S t chronic chronic 3-24 [facility] blood loss blood loss 00:00: Me dical anemia anemia 00 Center Severe Severe Disease Active [facility] protein-ca protein-ca 3-24 [place] maciej maciej 00:00: Medical malnutriti malnutriti 00 Ce nter on ([place]: on ([place]: less than less than 60% of 60% of standard standard weight) weight) Gastric Gastric Disease Active [facility]18 [facility] 00:00: Medical 00 [place] Normochrom Normochrom Disease Active C [facility] ic ic 3-18 [facility] normocytic normocytic 00:00: Me dical anemia anemia 00 [place] [phone] Status Problem 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 Sp [place] blood loss anemia - [facility] secondary [facility] to blood [facility] loss Medical (chronic) [place] [phone] Primary Problem Comm on osteoarthr Spirit itis of - [facility] right knee [facility] [phone] Primary Problem Comm on osteoarthr Spirit itis of - [facility] left knee [facility] Allergies, Adverse Reactions, Alerts Allergy Allergy Status Severity Reaction(s) Onset Inactive Treating Comm ents Source Name Type Date Date Clinician No Known DA [facility] 00:[facility]: [address] No Known DA [facility] 00:[facility]: [address] CLARITHR Allergy Active Hives [facility] 3[facility]18 [facility] 00:00: [place] [address] Center Clarithr Propensi Active Hives Pt stated [facility] omycin ty to 3-18 she gets [facility] adverse 00:00: blotches Medical reaction 00 and they Center s itch Family History Family Member Diagnosis Comments Start Date Stop Date Source Natural father Cancer [facility] Natural mother Hypertension [facility] Natural mother Kidney disease [facility] Natural mother Stroke [facility] Social History Social Habit Start Date Stop Date Quantity Comments Source History of Tobacco [facility] - Use [facility] History SDOH [facility] Alcohol Frequency [facility] History SDOH [facility] Alcohol Std Drinks [facility] History SDOH [facility] Alcohol Binge Medical Chyna ter Alcohol intake 2019-06-10 2019-06-10 [facility]00 of alcohol [facility] (finding) Alcohol Comment 2019-06-03 2019-06-03 [facility] Tobacco use and 2019-06-03 2019-06-[address] [facility] exposure 00:00:00 00:00:00 [facility] Center Sex Assigned At [address] [facility] 00:00:00 00:00:00 Medical Center Smoking Status Start Date Stop Date Source Never Smoker [facility] - [facility] Medications Ordered Filled Start Stop Current Ordering Indication Dosage Frequency Signature Comments Components Source Medication Medication Date Date Medication? Clinician (SIG) Name Name Meloxicam Meloxicam 2021- No 1{table QD Meloxicam 7.5 MG 7.5 MG 08-21 t} 7.5 MG 00:00: 00:00 00 :00 Meloxicam Meloxicam 2021- No 1{table QD Meloxicam 7.5 MG 7.5 MG 08-21 t} 7.5 MG 00:00: 00:00 00 :00 traMADol traMADol 2021-0 No 1{table traMADol HCl 50 MG HCl 50 MG 5-27 t_as_ne HCl 50 MG 00:00: eded} 00 traMADol traMADol 2021-0 No 1{table traMADol HCl 50 MG HCl 50 MG 5-27 t_as_ne HCl 50 MG 00:00: eded} 00 traMADol traMADol 2021-0 No 1{table traMADol HCl 50 MG HCl 50 MG 5-27 t_as_ne HCl 50 MG 00:00: eded} 00 traMADol traMADol 2021-0 No 1{table traMADol HCl 50 MG HCl 50 MG 5-27 t_as_ne HCl 50 MG 00:00: eded} 00 traMADol traMADol 2021-0 No 1{table traMADol HCl 50 MG HCl 50 MG 5-27 t_as_ne HCl 50 MG 00:00: eded} 00 traMADol traMADol 2021-0 No 1{table traMADol HCl 50 MG HCl 50 MG 5-27 t_as_ne HCl 50 MG 00:00: eded} 00 HYDROcodone HYDROcodone 2021-0 No 1{table QID HYDROcodon -Acetaminop -Acetaminop 5-19 t_as_ne e-Acetamin hen 5-325 hen 5-325 00:00: eded} ophen MG MG 00 5-325 MG HYDROcodone HYDROcodone 2021-0 No 1{table QID HYDROcodon -Acetaminop -Acetaminop 5-19 t_as_ne e-Acetamin hen 5-325 hen 5-325 00:00: eded} ophen MG MG 00 5-325 MG HYDROcodone HYDROcodone 2021-0 No 1{table QID HYDROcodon -Acetaminop -Acetaminop 5-19 t_as_ne e-Acetamin hen 5-325 hen 5-325 00:00: eded} ophen MG MG 00 5-325 MG HYDROcodone HYDROcodone 2021-0 No 1{table QID HYDROcodon -Acetaminop -Acetaminop 5-19 t_as_ne e-Acetamin hen 5-325 hen 5-325 00:00: eded} ophen MG MG 00 5-325 MG HYDROcodone HYDROcodone 2021-0 No 1{table QID HYDROcodon -Acetaminop -Acetaminop 5-19 t_as_ne e-Acetamin hen 5-325 hen 5-325 00:00: eded} ophen MG MG 00 5-325 MG HYDROcodone HYDROcodone 2021-0 No 1{table QID HYDROcodon -Acetaminop -Acetaminop 5-19 t_as_ne e-Acetamin hen 5-325 hen 5-325 00:00: eded} ophen MG MG 00 5-325 MG HYDROcodone HYDROcodone 2021-0 No 1{table QID HYDROcodon -Acetaminop -Acetaminop 5-19 t_as_ne e-Acetamin hen 5-325 hen 5-325 00:00: eded} ophen MG MG 00 5-325 MG HYDROcodone HYDROcodone 2021-0 No 1{table QID HYDROcodon -Acetaminop -Acetaminop 5-19 t_as_ne e-Acetamin hen 5-325 hen 5-325 00:00: eded} ophen MG MG 00 5-325 MG HYDROcodone HYDROcodone 2021-0 No 1{table HYDROcodon -Acetaminop -Acetaminop 5-11 t_as_ne e-Acetamin hen 5-325 hen 5-325 00:00: eded} ophen MG MG 00 5-325 MG HYDROcodone HYDROcodone 2021-0 No 1{table HYDROcodon -Acetaminop -Acetaminop 5-11 t_as_ne e-Acetamin hen 5-325 hen 5-325 00:00: eded} ophen MG MG 00 5-325 MG HYDROcodone HYDROcodone 2021-0 No 1{table HYDROcodon -Acetaminop -Acetaminop 5-11 t_as_ne e-Acetamin hen 5-325 hen 5-325 00:00: eded} ophen MG MG 00 5-325 MG HYDROcodone HYDROcodone 2021-0 No 1{table HYDROcodon -Acetaminop -Acetaminop 5-11 t_as_ne e-Acetamin hen 5-325 hen 5-325 00:00: eded} ophen MG MG 00 5-325 MG HYDROcodone HYDROcodone 2021-0 No 1{table HYDROcodon -Acetaminop -Acetaminop 5-11 t_as_ne e-Acetamin hen 5-325 hen 5-325 00:00: eded} ophen MG MG 00 5-325 MG HYDROcodone HYDROcodone 2021-0 No 1{table HYDROcodon -Acetaminop -Acetaminop 5-11 t_as_ne e-Acetamin hen 5-325 hen 5-325 00:00: eded} ophen MG MG 00 5-325 MG HYDROcodone HYDROcodone 2021-0 No 1{table HYDROcodon -Acetaminop -Acetaminop 5-11 t_as_ne e-Acetamin hen 5-325 hen 5-325 00:00: eded} ophen MG MG 00 5-325 MG HYDROcodone HYDROcodone 2021-0 No 1{table HYDROcodon -Acetaminop -Acetaminop 5-11 t_as_ne e-Acetamin hen 5-325 hen 5-325 00:00: eded} ophen MG MG 00 5-325 MG HYDROcodone HYDROcodone 2021-0 No 1{table HYDROcodon -Acetaminop -Acetaminop 5-11 t_as_ne e-Acetamin hen 5-325 hen 5-325 00:00: eded} ophen MG MG 00 5-325 MG Xarelto 10 Xarelto 10 2021-0 No 1{table QD Xarelto 10 MG MG 5-02 t} MG 00:00: 00 HYDROcodone HYDROcodone 2021-0 No 1{table HYDROcodon -Acetaminop -Acetaminop 5-02 t_as_ne e-Acetamin hen 7.5-325 hen 7.5-325 00:00: eded} ophen MG MG 00 7.5-325 MG Xarelto 10 Xarelto 10 2021-0 No 1{table QD Xarelto 10 MG MG 5-02 t} MG 00:00: 00 HYDROcodone HYDROcodone 2021-0 No 1{table HYDROcodon -Acetaminop -Acetaminop 5-02 t_as_ne e-Acetamin hen 7.5-325 hen 7.5-325 00:00: eded} ophen MG MG 00 7.5-325 MG Xarelto 10 Xarelto 10 2021-0 No 1{table QD Xarelto 10 MG MG 5-02 t} MG 00:00: 00 HYDROcodone HYDROcodone 2021-0 No 1{table HYDROcodon -Acetaminop -Acetaminop 5-02 t_as_ne e-Acetamin hen 7.5-325 hen 7.5-325 00:00: eded} ophen MG MG 00 7.5-325 MG Xarelto 10 Xarelto 10 2021-0 No 1{table QD Xarelto 10 MG MG 5-02 t} MG 00:00: 00 HYDROcodone HYDROcodone 2021-0 No 1{table HYDROcodon -Acetaminop -Acetaminop 5-02 t_as_ne e-Acetamin hen 7.5-325 hen 7.5-325 00:00: eded} ophen MG MG 00 7.5-325 MG Xarelto 10 Xarelto 10 2021-0 No 1{table QD Xarelto 10 MG MG 5-02 t} MG 00:00: 00 HYDROcodone HYDROcodone 2021-0 No 1{table HYDROcodon -Acetaminop -Acetaminop 5-02 t_as_ne e-Acetamin hen 7.5-325 hen 7.5-325 00:00: eded} ophen MG MG 00 7.5-325 MG HYDROcodone HYDROcodone 2021-0 No 1{table HYDROcodon -Acetaminop -Acetaminop 5-02 t_as_ne e-Acetamin hen 7.5-325 hen 7.5-325 00:00: eded} ophen MG MG 00 7.5-325 MG Xarelto 10 Xarelto 10 2021-0 No 1{table QD Xarelto 10 MG MG 5-02 t} MG 00:00: 00 HYDROcodone HYDROcodone 2021-0 No 1{table HYDROcodon -Acetaminop -Acetaminop 5-02 t_as_ne e-Acetamin hen 7.5-325 hen 7.5-325 00:00: eded} ophen MG MG 00 7.5-325 MG Xarelto 10 Xarelto 10 2021-0 No 1{table QD Xarelto 10 MG MG 5-02 t} MG 00:00: 00 Xarelto 10 Xarelto 10 2021-0 No 1{table QD Xarelto 10 MG MG 5-02 t} MG 00:00: 00 HYDROcodone HYDROcodone 2021-0 No 1{table HYDROcodon -Acetaminop -Acetaminop 5-02 t_as_ne e-Acetamin hen 7.5-325 hen 7.5-325 00:00: eded} ophen MG MG 00 7.5-325 MG Xarelto 10 Xarelto 10 2021-0 No 1{table QD Xarelto 10 MG MG 5-02 t} MG 00:00: 00 HYDROcodone HYDROcodone 2021-0 No 1{table HYDROcodon -Acetaminop -Acetaminop 5-02 t_as_ne e-Acetamin hen 7.5-325 hen 7.5-325 00:00: eded} ophen MG MG 00 7.5-325 MG Xarelto 10 Xarelto 10 2021-0 No 1{table QD Xarelto 10 MG MG 5-02 t} MG 00:00: 00 HYDROcodone HYDROcodone 2021-0 No 1{table HYDROcodon -Acetaminop -Acetaminop 5-02 t_as_ne e-Acetamin hen 7.5-325 hen 7.5-325 00:00: eded} ophen MG MG 00 7.5-325 MG HYDROcodone HYDROcodone 2021-0 No 1{table HYDROcodon -Acetaminop -Acetaminop 5-02 t_as_ne e-Acetamin hen 7.5-325 hen 7.5-325 00:00: eded} ophen MG MG 00 7.5-325 MG Xarelto 10 Xarelto 10 2021-0 No 1{table QD Xarelto 10 MG MG 5-02 t} MG 00:00: 00 HYDROcodone HYDROcodone 2021-0 No 1{table HYDROcodon -Acetaminop -Acetaminop 5-02 t_as_ne e-Acetamin hen 7.5-325 hen 7.5-325 00:00: eded} ophen MG MG 00 7.5-325 MG Xarelto 10 Xarelto 10 2021-0 No 1{table QD Xarelto 10 MG MG 5-02 t} MG 00:00: 00 traMADol traMADol 2021-0 No 1{table traMADol HCl 50 MG HCl 50 MG 1-06 t_as_ne HCl 50 MG 00:00: eded} 00 traMADol traMADol 2021-0 No 1{table traMADol HCl 50 MG HCl 50 MG 1-06 t_as_ne HCl 50 MG 00:00: eded} 00 traMADol traMADol 2-0 No 1{table traMADol HCl 50 MG HCl 50 MG 1-06 t_as_ne HCl 50 MG 00:00: eded} 00 traMADol traMADol 2-0 No 1{table traMADol HCl 50 MG HCl 50 MG 1-06 t_as_ne HCl 50 MG 00:00: eded} 00 traMADol traMADol 2-0 No 1{table traMADol HCl 50 MG HCl 50 MG 1-06 t_as_ne HCl 50 MG 00:00: eded} 00 traMADol traMADol 2-0 No 1{table traMADol HCl 50 MG HCl 50 MG 1-06 t_as_ne HCl 50 MG 00:00: eded} 00 traMADol traMADol 2-0 No 1{table traMADol HCl 50 MG HCl 50 MG 1-06 t_as_ne HCl 50 MG 00:00: eded} 00 traMADol traMADol 2-0 No 1{table traMADol HCl 50 MG HCl 50 MG 1-06 t_as_ne HCl 50 MG 00:00: eded} 00 traMADol traMADol 2-0 No 1{table traMADol HCl 50 MG HCl 50 MG 1-06 t_as_ne HCl 50 MG 00:00: eded} 00 traMADol traMADol 2-0 No 1{table traMADol HCl 50 MG HCl 50 MG 1-06 t_as_ne HCl 50 MG 00:00: eded} 00 traMADol traMADol 2-0 No 1{table traMADol HCl 50 MG HCl 50 MG 1-06 t_as_ne HCl 50 MG 00:00: eded} 00 traMADol traMADol 2-0 No 1{table traMADol HCl 50 MG HCl 50 MG 1-06 t_as_ne HCl 50 MG 00:00: eded} 00 traMADol traMADol 2-0 No 1{table traMADol HCl 50 MG HCl 50 MG 1-06 t_as_ne HCl 50 MG 00:00: eded} 00 traMADol traMADol 2-0 No 1{table traMADol HCl 50 MG HCl 50 MG 1-06 t_as_ne HCl 50 MG 00:00: eded} 00 traMADol traMADol 2-0 No 1{table traMADol HCl 50 MG HCl 50 MG 1-06 t_as_ne HCl 50 MG 00:00: eded} 00 traMADol traMADol 2-0 No 1{table traMADol HCl 50 MG HCl 50 MG 1-06 t_as_ne HCl 50 MG 00:00: eded} 00 traMADol traMADol 2021-0 No 1{table traMADol HCl 50 MG HCl 50 MG 1-06 t_as_ne HCl 50 MG 00:00: eded} 00 traMADol traMADol 2021-0 No 1{table traMADol HCl 50 MG HCl 50 MG 1-06 t_as_ne HCl 50 MG 00:00: eded} 00 traMADol traMADol 2021-0 No 1{table traMADol HCl 50 MG HCl 50 MG 1-06 t_as_ne HCl 50 MG 00:00: eded} 00 traMADol traMADol 2021-0 No 1{table traMADol HCl 50 MG HCl 50 MG 1-06 t_as_ne HCl 50 MG 00:00: eded} 00 traMADol traMADol 2021-0 No 1{table traMADol HCl 50 MG HCl 50 MG 1-05 t_as_ne HCl 50 MG 00:00: eded} 00 traMADol traMADol 2021-0 No 1{table traMADol HCl 50 MG HCl 50 MG 1-05 t_as_ne HCl 50 MG 00:00: eded} 00 traMADol traMADol 2020-1 No 1{table traMADol HCl 50 MG HCl 50 MG 2-22 t_as_ne HCl 50 MG 00:00: eded} 00 traMADol traMADol 2020-1 No 1{table traMADol HCl 50 MG HCl 50 MG 2-22 t_as_ne HCl 50 MG 00:00: eded} 00 traMADol traMADol 2020-1 No 1{table traMADol HCl 50 MG HCl 50 MG 2-22 t_as_ne HCl 50 MG 00:00: eded} 00 traMADol traMADol 2020-1 No 1{table traMADol HCl 50 MG HCl 50 MG 2-22 t_as_ne HCl 50 MG 00:00: eded} 00 traMADol traMADol 2020-1 No 1{table traMADol HCl 50 MG HCl 50 MG 2-22 t_as_ne HCl 50 MG 00:00: eded} 00 traMADol traMADol 2020-1 No 1{table traMADol HCl 50 MG HCl 50 MG 2-22 t_as_ne HCl 50 MG 00:00: eded} 00 traMADol traMADol 2020- No 1{table traMADol HCl 50 MG HCl 50 MG 2-22 t_as_ne HCl 50 MG 00:00: eded} 00 traMADol traMADol 2020-03 No 1{table traMADol HCl 50 MG HCl 50 MG 2-22 t_as_ne HCl 50 MG 00:00: eded} 00 traMADol traMADol 2020- No 1{table traMADol HCl 50 MG HCl 50 MG 2-22 t_as_ne HCl 50 MG 00:00: eded} 00 traMADol traMADol 2020- No 1{table traMADol HCl 50 MG HCl 50 MG 2-22 t_as_ne HCl 50 MG 00:00: eded} 00 traMADol traMADol 2020-03 No 1{table traMADol HCl 50 MG HCl 50 MG 2-22 t_as_ne HCl 50 MG 00:00: eded} 00 traMADol traMADol 2020-03 No 1{table traMADol HCl 50 MG HCl 50 MG 2-22 t_as_ne HCl 50 MG 00:00: eded} 00 traMADol traMADol 2020-03 No 1{table traMADol HCl 50 MG HCl 50 MG 2-22 t_as_ne HCl 50 MG 00:00: eded} 00 traMADol traMADol 2020-03 No 1{table traMADol HCl 50 MG HCl 50 MG 2-22 t_as_ne HCl 50 MG 00:00: eded} 00 traMADol traMADol 2020- No 1{table traMADol HCl 50 MG HCl 50 MG 2-22 t_as_ne HCl 50 MG 00:00: eded} 00 traMADol traMADol 2020- No 1{table traMADol HCl 50 MG HCl 50 MG 2-22 t_as_ne HCl 50 MG 00:00: eded} 00 traMADol traMADol 2020- No 1{table traMADol HCl 50 MG HCl 50 MG 2-22 t_as_ne HCl 50 MG 00:00: eded} 00 traMADol traMADol 2020- No 1{table traMADol HCl 50 MG HCl 50 MG 2-22 t_as_ne HCl 50 MG 00:00: eded} 00 traMADol traMADol 2020-03 No 1{table traMADol HCl 50 MG HCl 50 MG 2-22 t_as_ne HCl 50 MG 00:00: eded} 00 traMADol traMADol 2020- No 1{table traMADol HCl 50 MG HCl 50 MG 2-22 t_as_ne HCl 50 MG 00:00: eded} 00 traMADol traMADol 2020-03 No 1{table traMADol HCl 50 MG HCl 50 MG 2-22 t_as_ne HCl 50 MG 00:00: eded} 00 traMADol traMADol 2020-03 No 1{table traMADol HCl 50 MG HCl 50 MG 2-21 t_as_ne HCl 50 MG 00:00: eded} 00 traMADol traMADol 2020-03 No 1{table QD traMADol HCl 50 MG HCl 50 MG 2-21 t_as_ne HCl 50 MG 00:00: eded} 00 traMADol traMADol 2020-03 No 1{table QD traMADol HCl 50 MG HCl 50 MG 2-21 t_as_ne HCl 50 MG 00:00: eded} 00 traMADol traMADol 2020-03 No 1{table QD traMADol HCl 50 MG HCl 50 MG 2-21 t_as_ne HCl 50 MG 00:00: eded} 00 traMADol traMADol 2020-03 No 1{table QD traMADol HCl 50 MG HCl 50 MG 2-21 t_as_ne HCl 50 MG 00:00: eded} 00 traMADol traMADol 2020-03 No 1{table QD traMADol HCl 50 MG HCl 50 MG 2-21 t_as_ne HCl 50 MG 00:00: eded} 00 traMADol traMADol 2020- No 1{table QD traMADol HCl 50 MG HCl 50 MG 2-21 t_as_ne HCl 50 MG 00:00: eded} 00 traMADol traMADol 2020- No 1{table QD traMADol HCl 50 MG HCl 50 MG 2-21 t_as_ne HCl 50 MG 00:00: eded} 00 traMADol traMADol 2020- No 1{table QD traMADol HCl 50 MG HCl 50 MG 2-21 t_as_ne HCl 50 MG 00:00: eded} 00 traMADol traMADol 2020- No 1{table QD traMADol HCl 50 MG HCl 50 MG 2-21 t_as_ne HCl 50 MG 00:00: eded} 00 traMADol traMADol 2020- No 1{table QD traMADol HCl 50 MG HCl 50 MG 2-21 t_as_ne HCl 50 MG 00:00: eded} 00 traMADol traMADol 2020- No 1{table QD traMADol HCl 50 MG HCl 50 MG 2-21 t_as_ne HCl 50 MG 00:00: eded} 00 traMADol traMADol 2020-03 No 1{table QD traMADol HCl 50 MG HCl 50 MG 2-21 t_as_ne HCl 50 MG 00:00: eded} 00 traMADol traMADol 2020-03 No 1{table QD traMADol HCl 50 MG HCl 50 MG 2-21 t_as_ne HCl 50 MG 00:00: eded} 00 traMADol traMADol 2020-03 No 1{table QD traMADol HCl 50 MG HCl 50 MG 2-21 t_as_ne HCl 50 MG 00:00: eded} 00 traMADol traMADol 2020-03 No 1{table QD traMADol HCl 50 MG HCl 50 MG 2-21 t_as_ne HCl 50 MG 00:00: eded} 00 traMADol traMADol 2020-03 No 1{table QD traMADol HCl 50 MG HCl 50 MG 2-21 t_as_ne HCl 50 MG 00:00: eded} 00 traMADol traMADol 2020- No 1{table QD traMADol HCl 50 MG HCl 50 MG 2-21 t_as_ne HCl 50 MG 00:00: eded} 00 traMADol traMADol 2020- No 1{table QD traMADol HCl 50 MG HCl 50 MG 2-21 t_as_ne HCl 50 MG 00:00: eded} 00 traMADol traMADol 2020- No 1{table QD traMADol HCl 50 MG HCl 50 MG 2-21 t_as_ne HCl 50 MG 00:00: eded} 00 traMADol traMADol 2020- No 1{table QD traMADol HCl 50 MG HCl 50 MG 2-21 t_as_ne HCl 50 MG 00:00: eded} 00 traMADol traMADol 2020- No 1{table QD traMADol HCl 50 MG HCl 50 MG 2-21 t_as_ne HCl 50 MG 00:00: eded} 00 traMADol traMADol 2020- No 1{table QD traMADol HCl 50 MG HCl 50 MG 2-21 t_as_ne HCl 50 MG 00:00: eded} 00 traMADol traMADol 2020-03 No traMADol HCl 50 MG HCl 50 MG 2-13 HCl 50 MG 00:00: 00 traMADol traMADol 2020-03 No traMADol HCl 50 MG HCl 50 MG 2-13 HCl 50 MG 00:00: 00 traMADol traMADol 2020-03 No traMADol HCl 50 MG HCl 50 MG 2-13 HCl 50 MG 00:00: 00 traMADol traMADol 2020-03 No traMADol HCl 50 MG HCl 50 MG 2-13 HCl 50 MG 00:00: 00 traMADol traMADol 2020-03 No traMADol HCl 50 MG HCl 50 MG 2-13 HCl 50 MG 00:00: 00 traMADol traMADol 2020-03 No traMADol HCl 50 MG HCl 50 MG 2-13 HCl 50 MG 00:00: 00 traMADol traMADol 2020-03 No traMADol HCl 50 MG HCl 50 MG 2-13 HCl 50 MG 00:00: 00 traMADol traMADol 2020-03 No traMADol HCl 50 MG HCl 50 MG 2-13 HCl 50 MG 00:00: 00 traMADol traMADol 2020-03 No traMADol HCl 50 MG HCl 50 MG 2-13 HCl 50 MG 00:00: 00 traMADol traMADol 2020-03 No traMADol HCl 50 MG HCl 50 MG 2-13 HCl 50 MG 00:00: 00 traMADol traMADol 2020-03 No traMADol HCl 50 MG HCl 50 MG 2-13 HCl 50 MG 00:00: 00 traMADol traMADol 2020-03 No traMADol HCl 50 MG HCl 50 MG 2-13 HCl 50 MG 00:00: 00 traMADol traMADol 2020-03 No traMADol HCl 50 MG HCl 50 MG 2-13 HCl 50 MG 00:00: 00 traMADol traMADol 2020-03 No traMADol HCl 50 MG HCl 50 MG 2-13 HCl 50 MG 00:00: 00 traMADol traMADol 2020-03 No traMADol HCl 50 MG HCl 50 MG 2-13 HCl 50 MG 00:00: 00 traMADol traMADol 2020-03 No traMADol HCl 50 MG HCl 50 MG 2-13 HCl 50 MG 00:00: 00 traMADol traMADol 2020-03 No traMADol HCl 50 MG HCl 50 MG 2-13 HCl 50 MG 00:00: 00 traMADol traMADol 2020-03 No traMADol HCl 50 MG HCl 50 MG 2-13 HCl 50 MG 00:00: 00 traMADol traMADol 2020-03 No traMADol HCl 50 MG HCl 50 MG 2-13 HCl 50 MG 00:00: 00 traMADol traMADol 2020-03 No traMADol HCl 50 MG HCl 50 MG 2-13 HCl 50 MG 00:00: 00 traMADol traMADol 2020-03 No traMADol HCl 50 MG HCl 50 MG 2-13 HCl 50 MG 00:00: 00 traMADol traMADol 2020-03 No traMADol HCl 50 MG HCl 50 MG 2-13 HCl 50 MG 00:00: 00 traMADol traMADol 2020-03 No traMADol HCl 50 MG HCl 50 MG 2-13 HCl 50 MG 00:00: 00 HYDROcodone HYDROcodone 2020-03 No 1{table HYDROcodon -Acetaminop -Acetaminop 04-19 12- t_as_ne e-Acetamin hen 5-325 hen 5-325 00:00: 00:00 eded} ophen MG MG 00 :00 5-325 MG HYDROcodone HYDROcodone 2020-03- No 1{table HYDROcodon -Acetaminop -Acetaminop 04-09 t_as_ne e-Acetamin hen 7.5-325 hen 7.5-325 00:00: 00:00 eded} ophen MG MG 00 :00 7.5-325 MG HYDROcodone HYDROcodone 2020-03- No 1{table HYDROcodon -Acetaminop -Acetaminop 04-09 t_as_ne e-Acetamin hen 7.5-325 hen 7.5-325 00:00: 00:00 eded} ophen MG MG 00 :00 7.5-325 MG HYDROcodone HYDROcodone 2020-03- No 1{table HYDROcodon -Acetaminop -Acetaminop 04-09 t_as_ne e-Acetamin hen 7.5-325 hen 7.5-325 00:00: 00:00 eded} ophen MG MG 00 :00 7.5-325 MG Xarelto 10 Xarelto 10 2020-03 No 1{table QD Xarelto 10 MG MG 1-18 t} MG 00:00: 00 Xarelto 10 Xarelto 10 2020-1 No 1{table QD Xarelto 10 MG MG 1-18 t} MG 00:00: 00 Xarelto 10 Xarelto 10 2020-1 No 1{table QD Xarelto 10 MG MG 1-18 t} MG 00:00: 00 Xarelto 10 Xarelto 10 2020-1 No 1{table QD Xarelto 10 MG MG 1-18 t} MG 00:00: 00 Xarelto 10 Xarelto 10 2020-1 No 1{table QD Xarelto 10 MG MG 1-18 t} MG 00:00: 00 Xarelto 10 Xarelto 10 2020-1 No 1{table QD Xarelto 10 MG MG 1-18 t} MG 00:00: 00 Xarelto 10 Xarelto 10 2020-1 No 1{table QD Xarelto 10 MG MG 1-18 t} MG 00:00: 00 Xarelto 10 Xarelto 10 2020-1 No 1{table QD Xarelto 10 MG MG 1-18 t} MG 00:00: 00 Xarelto 10 Xarelto 10 2020-1 No 1{table QD Xarelto 10 MG MG 1-18 t} MG 00:00: 00 Xarelto 10 Xarelto 10 2020-1 No 1{table QD Xarelto 10 MG MG 1-18 t} MG 00:00: 00 Xarelto 10 Xarelto 10 2020-1 No 1{table QD Xarelto 10 MG MG 1-18 t} MG 00:00: 00 Xarelto 10 Xarelto 10 2020-1 No 1{table QD Xarelto 10 MG MG 1-18 t} MG 00:00: 00 Xarelto 10 Xarelto 10 2020-1 No 1{table QD Xarelto 10 MG MG 1-18 t} MG 00:00: 00 Xarelto 10 Xarelto 10 2020-1 No 1{table QD Xarelto 10 MG MG 1-18 t} MG 00:00: 00 Xarelto 10 Xarelto 10 2020-1 No 1{table QD Xarelto 10 MG MG 1-18 t} MG 00:00: 00 Xarelto 10 Xarelto 10 2020-1 No 1{table QD Xarelto 10 MG MG 1-18 t} MG 00:00: 00 Xarelto 10 Xarelto 10 2020- No 1{table QD Xarelto 10 MG MG 1-18 t} MG 00:00: 00 Xarelto 10 Xarelto 10 2020- No 1{table QD Xarelto 10 MG MG 1-18 t} MG 00:00: 00 Xarelto 10 Xarelto 10 2020- No 1{table QD Xarelto 10 MG MG 1-18 t} MG 00:00: 00 Xarelto 10 Xarelto 10 2020- No 1{table QD Xarelto 10 MG MG 1-18 t} MG 00:00: 00 Xarelto 10 Xarelto 10 2020- No 1{table QD Xarelto 10 MG MG 1-18 t} MG 00:00: 00 Xarelto 10 Xarelto 10 2020- No 1{table QD Xarelto 10 MG MG 1-18 t} MG 00:00: 00 Xarelto 10 Xarelto 10 2020- No 1{table QD Xarelto 10 MG MG 1-18 t} MG 00:00: 00 Xarelto 10 Xarelto 10 2020- No 1{table QD Xarelto 10 MG MG 1-18 t} MG 00:00: 00 Xarelto 10 Xarelto 10 2020- No 1{table QD Xarelto 10 MG MG 1-18 t} MG 00:00: 00 Xarelto 10 Xarelto 10 2020- No 1{table QD Xarelto 10 MG MG 1-18 t} MG 00:00: 00 Xarelto 10 Xarelto 10 2020- No 1{table QD Xarelto 10 MG MG 1-18 t} MG 00:00: 00 HYDROcodone HYDROcodone 2020-03- No 1{table HYDROcodon -Acetaminop -Acetaminop -28 02- t_as_ne e-Acetamin hen 7.5-325 hen 7.5-325 00:00: 00:00 eded} ophen MG MG 00 :00 7.5-325 MG HYDROcodone HYDROcodone 2020-03- No 1{table HYDROcodon -Acetaminop -Acetaminop -14 -12 t_as_ne e-Acetamin hen 7.5-325 hen 7.5-325 00:00: 00:00 eded} ophen MG MG 00 :00 7.5-325 MG HYDROcodone HYDROcodone 2020-03- No 1{table HYDROcodon -Acetaminop -Acetaminop -14 -12 t_as_ne e-Acetamin hen 7.5-325 hen 7.5-325 00:00: 00:00 eded} ophen MG MG 00 :00 7.5-325 MG HYDROcodone HYDROcodone 2020-03- No 1{table HYDROcodon -Acetaminop -Acetaminop -14 - t_as_ne e-Acetamin hen 7.5-325 hen 7.5-325 00:00: 00:00 eded} ophen MG MG 00 :00 7.5-325 MG HYDROcodone HYDROcodone 2020-03- No 1{table HYDROcodon -Acetaminop -Acetaminop -14 - t_as_ne e-Acetamin hen 7.5-325 hen 7.5-325 00:00: 00:00 eded} ophen MG MG 00 :00 7.5-325 MG HYDROcodone HYDROcodone 2020-03- No 1{table HYDROcodon -Acetaminop -Acetaminop -14 - t_as_ne e-Acetamin hen 7.5-325 hen 7.5-325 00:00: 00:00 eded} ophen MG MG 00 :00 7.5-325 MG HYDROcodone HYDROcodone 2020-03- No 1{table HYDROcodon -Acetaminop -Acetaminop -14 -12 t_as_ne e-Acetamin hen 7.5-325 hen 7.5-325 00:00: 00:00 eded} ophen MG MG 00 :00 7.5-325 MG Xarelto 10 Xarelto 10 2020-03 No 1{table QD Xarelto 10 MG MG -12 t} MG 00:00: 00 Xarelto 10 Xarelto 10 2020-03 No 1{table QD Xarelto 10 MG MG -12 t} MG 00:00: 00 Xarelto 10 Xarelto 10 2020-03 No 1{table QD Xarelto 10 MG MG 1-12 t} MG 00:00: 00 Xarelto 10 Xarelto 10 2020-1 No 1{table QD Xarelto 10 MG MG 1-12 t} MG 00:00: 00 Xarelto 10 Xarelto 10 2020-1 No 1{table QD Xarelto 10 MG MG 1-12 t} MG 00:00: 00 Xarelto 10 Xarelto 10 2020-1 No 1{table QD Xarelto 10 MG MG 1-12 t} MG 00:00: 00 Xarelto 10 Xarelto 10 2020-1 No 1{table QD Xarelto 10 MG MG 1-12 t} MG 00:00: 00 Xarelto 10 Xarelto 10 2020-1 No 1{table QD Xarelto 10 MG MG 1-12 t} MG 00:00: 00 Xarelto 10 Xarelto 10 2020-1 No 1{table QD Xarelto 10 MG MG 1-12 t} MG 00:00: 00 Xarelto 10 Xarelto 10 2020-1 No 1{table QD Xarelto 10 MG MG 1-12 t} MG 00:00: 00 Xarelto 10 Xarelto 10 2020-1 No 1{table QD Xarelto 10 MG MG 1-12 t} MG 00:00: 00 Xarelto 10 Xarelto 10 2020-1 No 1{table QD Xarelto 10 MG MG 1-12 t} MG 00:00: 00 Xarelto 10 Xarelto 10 2020-1 No 1{table QD Xarelto 10 MG MG 1-12 t} MG 00:00: 00 Xarelto 10 Xarelto 10 2020-1 No 1{table QD Xarelto 10 MG MG 1-12 t} MG 00:00: 00 Xarelto 10 Xarelto 10 2020-1 No 1{table QD Xarelto 10 MG MG 1-12 t} MG 00:00: 00 Xarelto 10 Xarelto 10 2020-1 No 1{table QD Xarelto 10 MG MG 1-12 t} MG 00:00: 00 Xarelto 10 Xarelto 10 2020-1 No 1{table QD Xarelto 10 MG MG 1-12 t} MG 00:00: 00 Xarelto 10 Xarelto 10 2020-1 No 1{table QD Xarelto 10 MG MG 1-12 t} MG 00:00: 00 Xarelto 10 Xarelto 10 2020- No 1{table QD Xarelto 10 MG MG 1-12 t} MG 00:00: 00 Xarelto 10 Xarelto 10 2020- No 1{table QD Xarelto 10 MG MG 1-12 t} MG 00:00: 00 Xarelto 10 Xarelto 10 2020- No 1{table QD Xarelto 10 MG MG 1-12 t} MG 00:00: 00 Xarelto 10 Xarelto 10 2020- No 1{table QD Xarelto 10 MG MG 1-12 t} MG 00:00: 00 Xarelto 10 Xarelto 10 2020- No 1{table QD Xarelto 10 MG MG 1-12 t} MG 00:00: 00 Xarelto 10 Xarelto 10 2020- No 1{table QD Xarelto 10 MG MG 1-12 t} MG 00:00: 00 Xarelto 10 Xarelto 10 2020-03 No 1{table QD Xarelto 10 MG MG 1-12 t} MG 00:00: 00 Xarelto 10 Xarelto 10 2020-03 No 1{table QD Xarelto 10 MG MG 1-12 t} MG 00:00: 00 Xarelto 10 Xarelto 10 2020-03 No 1{table QD Xarelto 10 MG MG 1-12 t} MG 00:00: 00 Xarelto 10 Xarelto 10 2020- No 1{table QD Xarelto 10 MG MG 1-12 t} MG 00:00: 00 Xarelto 10 Xarelto 10 2020- No 1{table QD Xarelto 10 MG MG 1-12 t} MG 00:00: 00 Xarelto 10 Xarelto 10 2020- No 1{table QD Xarelto 10 MG MG 1-12 t} MG 00:00: 00 traMADoL 2020-0 Yes 50mg Take [address] [facility] (ULTRAM) 50 2-28 by mouth 3 [facility] mg tablet 00:00: (three) Medic al 00 times Center daily as needed for Pain. traMADoL 2020-0 Yes 50mg Take [address] [facility] (ULTRAM) 50 2-28 by mouth 3 [facility] mg tablet 00:00: (three) Medic al 00 times Center daily as needed for Pain. traMADoL 2020-0 Yes 50mg Take [address] [facility] (ULTRAM) 50 2-28 by mouth 3 [facility] mg tablet 00:00: (three) Medic al 00 times Center daily as needed for Pain. phentermine 2020-0 Yes 37.5mg QD Take 37.[address] [facility] (ADIPEX-P) [facility] mouth Medical tablet 00 daily. Center phentermine 2020-0 Yes 37.5mg QD Take 37.[address] [facility] (ADIPEX-P) [facility] 37[facility]5 mg 00:00: mouth Medical tablet 00 daily. Center phentermine 2020-0 Yes 37.5mg QD Take 37.[address] [facility] (ADIPEX-P) [facility] 37[facility]5 mg 00:00: mouth Medical tablet 00 daily. Center Tramadol Tramadol Yes Mikey not Comm on HCl HCl Nelson defined [place] PrednisoLON PrednisoLON Yes Mikey not Common E E Nelson defined [place] prednisoLON prednisoLON No prednisoLO E E NE Phentermine Phentermine No Phentermin HCl HCl e HCl traMADol traMADol No traMADol HCl HCl HCl Cyanocobala Cyanocobala No Cyanocobal min min alejo PARoxetine PARoxetine No PARoxetine HCl HCl HCl Pantoprazol Pantoprazol No Pantoprazo e Sodium e Sodium le Sodium Pfizer-BioN Pfizer-BioN No [employer] Plus Tech NTech COVID-19 COVID-19 COVID-19 Vacc Vacc Vacc Pfizer-BioN Pfizer-BioN No [employer] Plus [employer] NTech COVID-19 COVID-19 COVID-19 Vacc Vacc Vacc Phentermine Phentermine No Phentermin HCl HCl e HCl Cyanocobala Cyanocobala No Cyanocobal min min alejo traMADol traMADol No traMADol HCl HCl HCl prednisoLON prednisoLON No prednisoLO E E NE Pantoprazol Pantoprazol No Pantoprazo e Sodium e Sodium le Sodium PARoxetine PARoxetine No PARoxetine HCl HCl HCl Pfizer-BioN Pfizer-BioN No [employer] Plus Tech NTech COVID-19 COVID-19 COVID-19 Vacc Vacc Vacc Phentermine Phentermine No Phentermin HCl HCl e HCl Cyanocobala Cyanocobala No Cyanocobal min min alejo traMADol traMADol No traMADol HCl HCl HCl prednisoLON prednisoLON No prednisoLO E E NE Pantoprazol Pantoprazol No Pantoprazo e Sodium e Sodium le Sodium PARoxetine PARoxetine No PARoxetine HCl HCl HCl Pfizer-AmerpagesN [employer] [place]-BioN No [employer] NTech COVID-19 COVID-19 COVID-19 Vacc Vacc Vacc Phentermine Phentermine No Phentermin HCl HCl e HCl Cyanocobala Cyanocobala No Cyanocobal min min alejo traMADol traMADol No traMADol HCl HCl HCl prednisoLON prednisoLON No prednisoLO E E NE Pantoprazol Pantoprazol No Pantoprazo e Sodium e Sodium le Sodium PARoxetine PARoxetine No PARoxetine HCl HCl HCl prednisoLON prednisoLON No prednisoLO E E NE Pfizer-BioN [employer] [place]-BioN No [employer] NTech COVID-19 COVID-19 COVID-19 Vacc Vacc Vacc Cyanocobala Cyanocobala No Cyanocobal min min alejo Pantoprazol Pantoprazol No Pantoprazo e Sodium e Sodium le Sodium Phentermine Phentermine No Phentermin HCl HCl e HCl traMADol traMADol No traMADol HCl HCl HCl PARoxetine PARoxetine No PARoxetine HCl HCl HCl prednisoLON prednisoLON No prednisoLO E E NE Cyanocobala Cyanocobala No Cyanocobal min min alejo Pfizer-BioN [employer] [place]-BioN No [employer] NTech COVID-19 COVID-19 COVID-19 Vacc Vacc Vacc traMADol traMADol No traMADol HCl HCl HCl Pantoprazol Pantoprazol No Pantoprazo e Sodium e Sodium le Sodium PARoxetine PARoxetine No PARoxetine HCl HCl HCl Phentermine Phentermine No Phentermin HCl HCl e HCl prednisoLON prednisoLON No prednisoLO E E NE Cyanocobala Cyanocobala No Cyanocobal min min alejo [employer] [place]-BioN [employer] [place]-BioN No [employer] NTech COVID-19 COVID-19 COVID-19 Vacc Vacc Vacc traMADol traMADol No traMADol HCl HCl HCl Pantoprazol Pantoprazol No Pantoprazo e Sodium e Sodium le Sodium PARoxetine PARoxetine No PARoxetine HCl HCl HCl Phentermine Phentermine No Phentermin HCl HCl e HCl Cyanocobala Cyanocobala No Cyanocobal min min alejo Mechanology No [employer] NTech COVID-19 COVID-19 COVID-19 Vacc Vacc Vacc Pantoprazol Pantoprazol No Pantoprazo e Sodium e Sodium le Sodium traMADol traMADol No traMADol HCl HCl HCl PARoxetine PARoxetine No PARoxetine HCl HCl HCl prednisoLON prednisoLON No prednisoLO E E NE Phentermine Phentermine No Phentermin HCl HCl e HCl PARoxetine PARoxetine No PARoxetine HCl HCl HCl Mechanology No Egoscue NTech COVID-19 COVID-19 COVID-19 Vacc Vacc Vacc traMADol traMADol No traMADol HCl HCl HCl prednisoLON prednisoLON No prednisoLO E E NE Cyanocobala Cyanocobala No Cyanocobal min min alejo Pantoprazol Pantoprazol No Pantoprazo e Sodium e Sodium le Sodium Phentermine Phentermine No Phentermin HCl HCl e HCl PARoxetine PARoxetine No PARoxetine HCl HCl HCl traMADol traMADol No traMADol HCl HCl HCl Mechanology No Egoscue NTech COVID-19 COVID-19 COVID-19 Vacc Vacc Vacc Phentermine Phentermine No Phentermin HCl HCl e HCl prednisoLON prednisoLON No prednisoLO E E NE Cyanocobala Cyanocobala No Cyanocobal min min alejo Pantoprazol Pantoprazol No Pantoprazo e Sodium e Sodium le Sodium PARoxetine PARoxetine No PARoxetine HCl HCl HCl traMADol traMADol No traMADol HCl HCl HCl Mechanology No [employer] NTech COVID-19 COVID-19 COVID-19 Vacc Vacc Vacc Phentermine Phentermine No Phentermin HCl HCl e HCl prednisoLON prednisoLON No prednisoLO E E NE Cyanocobala Cyanocobala No Cyanocobal min min alejo Pantoprazol Pantoprazol No Pantoprazo e Sodium e Sodium le Sodium PARoxetine PARoxetine No PARoxetine HCl HCl HCl Cyanocobala Cyanocobala No Cyanocobal min min alejo Pantoprazol Pantoprazol No Pantoprazo e Sodium e Sodium le Sodium prednisoLON prednisoLON No prednisoLO E E NE traMADol traMADol No traMADol HCl HCl HCl Phentermine Phentermine No Phentermin HCl HCl e HCl Mechanology No Pfizer-Bio Tech Tech NTech COVID-19 COVID-19 COVID-19 Vacc Vacc Vacc PARoxetine PARoxetine No PARoxetine HCl HCl HCl Cyanocobala Cyanocobala No Cyanocobal min min alejo Pantoprazol Pantoprazol No Pantoprazo e Sodium e Sodium le Sodium prednisoLON prednisoLON No prednisoLO E E NE traMADol traMADol No traMADol HCl HCl HCl Phentermine Phentermine No Phentermin HCl HCl e HCl Pfizer-BioN [employer] [place]-BioN No Egoscue NTech COVID-19 COVID-19 COVID-19 Vacc Vacc Vacc Cyanocobala Cyanocobala No Cyanocobal min min alejo Pantoprazol Pantoprazol No Pantoprazo e Sodium e Sodium le Sodium traMADol traMADol No traMADol HCl HCl HCl traMADol traMADol No 1{table traMADol HCl 50 MG HCl 50 MG t_as_ne HCl 50 MG eded} [employer]-BioN [employer] [place]-BioN No [employer] NTech COVID-19 COVID-19 COVID-19 Vacc Vacc Vacc prednisoLON prednisoLON No prednisoLO E E NE PARoxetine PARoxetine No PARoxetine HCl HCl HCl Phentermine Phentermine No Phentermin HCl HCl e HCl Cyanocobala Cyanocobala No Cyanocobal min min alejo Pantoprazol Pantoprazol No Pantoprazo e Sodium e Sodium le Sodium traMADol traMADol No traMADol HCl HCl HCl traMADol traMADol No 1{table traMADol HCl 50 MG HCl 50 MG t_as_ne HCl 50 MG eded} [employer]-BioN [employer] [place]-BioN No [employer] NTech COVID-19 COVID-19 COVID-19 Vacc Vacc Vacc prednisoLON prednisoLON No prednisoLO E E NE PARoxetine PARoxetine No PARoxetine HCl HCl HCl Phentermine Phentermine No Phentermin HCl HCl e HCl Cyanocobala Cyanocobala No Cyanocobal min min alejo Pantoprazol Pantoprazol No Pantoprazo e Sodium e Sodium le Sodium traMADol traMADol No traMADol HCl HCl HCl traMADol traMADol No 1{table traMADol HCl 50 MG HCl 50 MG t_as_ne HCl 50 MG eded} Pfizer-BioN [employer] [place]-BioN No [employer] NTech COVID-19 COVID-19 COVID-19 Vacc Vacc Vacc prednisoLON prednisoLON No prednisoLO E E NE PARoxetine PARoxetine No PARoxetine HCl HCl HCl Phentermine Phentermine No Phentermin HCl HCl e HCl Cyanocobala Cyanocobala No Cyanocobal min min alejo Pantoprazol Pantoprazol No Pantoprazo e Sodium e Sodium le Sodium traMADol traMADol No traMADol HCl HCl HCl traMADol traMADol No 1{table traMADol HCl 50 MG HCl 50 MG t_as_ne HCl 50 MG eded} ideeliN No itsDapperech COVID-19 COVID-19 COVID-19 Vacc Vacc Vacc prednisoLON prednisoLON No prednisoLO E E NE PARoxetine PARoxetine No PARoxetine HCl HCl HCl Phentermine Phentermine No Phentermin HCl HCl e HCl Cyanocobala Cyanocobala No Cyanocobal min min alejo Pantoprazol Pantoprazol No Pantoprazo e Sodium e Sodium le Sodium traMADol traMADol No traMADol HCl HCl HCl traMADol traMADol No 1{table traMADol HCl 50 MG HCl 50 MG t_as_ne HCl 50 MG eded} ideeliN No itsDapperech COVID-19 COVID-19 COVID-19 Vacc Vacc Vacc prednisoLON prednisoLON No prednisoLO E E NE PARoxetine PARoxetine No PARoxetine HCl HCl HCl Phentermine Phentermine No Phentermin HCl HCl e HCl traMADol traMADol No traMADol HCl HCl HCl Phentermine Phentermine No Phentermin HCl HCl e HCl PARoxetine PARoxetine No PARoxetine HCl HCl HCl Pantoprazol Pantoprazol No Pantoprazo e Sodium e Sodium le Sodium prednisoLON prednisoLON No prednisoLO E E NE Cyanocobala Cyanocobala No Cyanocobal min min alejo traMADol traMADol No 1{table traMADol HCl 50 MG HCl 50 MG t_as_ne HCl 50 MG eded} Mechanology No itsDapperech COVID-19 COVID-19 COVID-19 Vacc Vacc Vacc traMADol traMADol No traMADol HCl HCl HCl Phentermine Phentermine No Phentermin HCl HCl e HCl PARoxetine PARoxetine No PARoxetine HCl HCl HCl Pantoprazol Pantoprazol No Pantoprazo e Sodium e Sodium le Sodium Cyanocobala Cyanocobala No Cyanocobal min min alejo traMADol traMADol No 1{table traMADol HCl 50 MG HCl 50 MG t_as_ne HCl 50 MG eded} prednisoLON prednisoLON No prednisoLO E E NE Pfizer-AmerpagesN [employer] [place]-BioN No Egoscue NTech COVID-19 COVID-19 COVID-19 Vacc Vacc Vacc traMADol traMADol No traMADol HCl HCl HCl Phentermine Phentermine No Phentermin HCl HCl e HCl PARoxetine PARoxetine No PARoxetine HCl HCl HCl Pantoprazol Pantoprazol No Pantoprazo e Sodium e Sodium le Sodium Cyanocobala Cyanocobala No Cyanocobal min min alejo traMADol traMADol No 1{table traMADol HCl 50 MG HCl 50 MG t_as_ne HCl 50 MG eded} prednisoLON prednisoLON No prednisoLO E E NE Pfizer-Fixit Express-BioN No Egoscue NTech COVID-19 COVID-19 COVID-19 Vacc Vacc Vacc traMADol traMADol No 1{table traMADol HCl 50 MG HCl 50 MG t_as_ne HCl 50 MG eded} Pfizer-BioN [employer] [place]-BioN No Egoscue NTech COVID-19 COVID-19 COVID-19 Vacc Vacc Vacc PARoxetine PARoxetine No PARoxetine HCl HCl HCl Pantoprazol Pantoprazol No Pantoprazo e Sodium e Sodium le Sodium prednisoLON prednisoLON No prednisoLO E E NE traMADol traMADol No traMADol HCl HCl HCl Phentermine Phentermine No Phentermin HCl HCl e HCl Cyanocobala Cyanocobala No Cyanocobal min min alejo traMADol traMADol No 1{table traMADol HCl 50 MG HCl 50 MG t_as_ne HCl 50 MG eded} Pfizer-BioN [employer] [place]-BioN No Egoscue NTech COVID-19 COVID-19 COVID-19 Vacc Vacc Vacc PARoxetine PARoxetine No PARoxetine HCl HCl HCl Pantoprazol Pantoprazol No Pantoprazo e Sodium e Sodium le Sodium prednisoLON prednisoLON No prednisoLO E E NE traMADol traMADol No traMADol HCl HCl HCl Phentermine Phentermine No Phentermin HCl HCl e HCl Cyanocobala Cyanocobala No Cyanocobal min min alejo Pfizer-BioN [employer] [place]-BioN No [employer] NTech COVID-19 COVID-19 COVID-19 Vacc Vacc Vacc Cyanocobala Cyanocobala No Cyanocobal min min alejo Phentermine Phentermine No Phentermin HCl HCl e HCl traMADol traMADol No 1{table traMADol HCl 50 MG HCl 50 MG t_as_ne HCl 50 MG eded} Pantoprazol Pantoprazol No Pantoprazo e Sodium e Sodium le Sodium prednisoLON prednisoLON No prednisoLO E E NE PARoxetine PARoxetine No PARoxetine HCl HCl HCl traMADol traMADol No traMADol HCl HCl HCl prednisoLON prednisoLON No prednisoLO E E NE Cyanocobala Cyanocobala No Cyanocobal min min alejo Pfizer-BioN [employer] [place]-BioN No Egoscue NTech COVID-19 COVID-19 COVID-19 Vacc Vacc Vacc Phentermine Phentermine No Phentermin HCl HCl e HCl traMADol traMADol No traMADol HCl HCl HCl Pantoprazol Pantoprazol No Pantoprazo e Sodium e Sodium le Sodium traMADol traMADol No 1{table traMADol HCl 50 MG HCl 50 MG t_as_ne HCl 50 MG eded} PARoxetine PARoxetine No PARoxetine HCl HCl HCl PARoxetine PARoxetine No PARoxetine HCl HCl HCl traMADol traMADol No traMADol HCl HCl HCl prednisoLON prednisoLON No prednisoLO E E NE Pfizer-BioN [employer] [place]-BioN No Egoscue NTech COVID-19 COVID-19 COVID-19 Vacc Vacc Vacc Cyanocobala Cyanocobala No Cyanocobal min min alejo Phentermine Phentermine No Phentermin HCl HCl e HCl Pantoprazol Pantoprazol No Pantoprazo e Sodium e Sodium le Sodium traMADol traMADol No 1{table traMADol HCl 50 MG HCl 50 MG t_as_ne HCl 50 MG eded} PARoxetine PARoxetine No PARoxetine HCl HCl HCl Cyanocobala Cyanocobala No Cyanocobal min min alejo traMADol traMADol No traMADol HCl HCl HCl [employer]-AmerpagesN [employer]-BioN No Egoscue NTech COVID-19 COVID-19 COVID-19 Vacc Vacc Vacc prednisoLON prednisoLON No prednisoLO E E NE traMADol traMADol No 1{table traMADol HCl 50 MG HCl 50 MG t_as_ne HCl 50 MG eded} Phentermine Phentermine No Phentermin HCl HCl e HCl Pantoprazol Pantoprazol No Pantoprazo e Sodium e Sodium le Sodium prednisoLON prednisoLON No prednisoLO E E NE PARoxetine PARoxetine No PARoxetine HCl HCl HCl Cyanocobala Cyanocobala No Cyanocobal min min alejo traMADol traMADol No traMADol HCl HCl HCl [employer]-AmerpagesN [employer]-BioN No Egoscue NTech COVID-19 COVID-19 COVID-19 Vacc Vacc Vacc Pantoprazol Pantoprazol No Pantoprazo e Sodium e Sodium le Sodium traMADol traMADol No 1{table traMADol HCl 50 MG HCl 50 MG t_as_ne HCl 50 MG eded} Phentermine Phentermine No Phentermin HCl HCl e HCl traMADol traMADol No traMADol HCl HCl HCl Phentermine Phentermine No Phentermin HCl HCl e HCl prednisoLON prednisoLON No prednisoLO E E NE [employer]-BioN [employer] [place]-BioN No Egoscue NTech COVID-19 COVID-19 COVID-19 Vacc Vacc Vacc Cyanocobala Cyanocobala No Cyanocobal min min alejo PARoxetine PARoxetine No PARoxetine HCl HCl HCl traMADol traMADol No 1{table traMADol HCl 50 MG HCl 50 MG t_as_ne HCl 50 MG eded} Pantoprazol Pantoprazol No Pantoprazo e Sodium e Sodium le Sodium Meloxicam Meloxicam No 1{table QD Meloxicam 7.5 MG 7.5 MG t} 7.5 MG Meloxicam Meloxicam No 1{table QD Meloxicam 7.5 MG 7.5 MG t} 7.5 MG traMADol traMADol No traMADol HCl HCl HCl Pantoprazol Pantoprazol No Pantoprazo e Sodium e Sodium le Sodium Cyanocobala Cyanocobala No Cyanocobal min min alejo PARoxetine PARoxetine No PARoxetine HCl HCl HCl Phentermine Phentermine No Phentermin HCl HCl e HCl traMADol traMADol No 1{table traMADol HCl 50 MG HCl 50 MG t_as_ne HCl 50 MG eded} prednisoLON prednisoLON No prednisoLO E E NE Pfizer-BioN [employer] [place]-BioN No Egoscue NTech COVID-19 COVID-19 COVID-19 Vacc Vacc Vacc Meloxicam Meloxicam No 1{table QD Meloxicam 7.5 MG 7.5 MG t} 7.5 MG traMADol traMADol No traMADol HCl HCl HCl Pantoprazol Pantoprazol No Pantoprazo e Sodium e Sodium le Sodium Cyanocobala Cyanocobala No Cyanocobal min min alejo PARoxetine PARoxetine No PARoxetine HCl HCl HCl Phentermine Phentermine No Phentermin HCl HCl e HCl traMADol traMADol No 1{table traMADol HCl 50 MG HCl 50 MG t_as_ne HCl 50 MG eded} prednisoLON prednisoLON No prednisoLO E E NE Pfizer-BioN Pfizer-BioN No R + [employer] Tech NTech COVID-19 COVID-19 COVID-19 Vacc Vacc Vacc prednisoLON prednisoLON No prednisoLO E E NE Phentermine Phentermine No Phentermin HCl HCl e HCl traMADol traMADol No traMADol HCl HCl HCl Cyanocobala Cyanocobala No Cyanocobal min min alejo PARoxetine PARoxetine No PARoxetine HCl HCl HCl Pantoprazol Pantoprazol No Pantoprazo e Sodium e Sodium le Sodium Pfizer-BioN Pfizer-BioN No R + [employer] Tech NTech COVID-19 COVID-19 COVID-19 Vacc Vacc Vacc Immunizations Ordered Immunization Filled Immunization Date Status Commen ts Source Name Name Influenza Four-V 2019-06-[address] [facility] PF 3YR+ ([id number]) 00:00:00 [facility] Influenza Four-QIV 2019-06-[address] [facility] PF 3YR+ ([id number]) 00:00:00 [facility] Center Influenza Four-QIV 2019-06-[address] [facility] PF 3YR+ ([id number]) 00:00:00 [facility] Center Vital Signs Vital Name Observation Time Observation Value Comments Source height 2022-01-15 09:00:00 67 [in_i] [facility] weight 2022-01-15 09:00:00 214.6 [lb_av] [facility] temperature 2022-01-15 09:00:00 96.9 [degF] [facility] bmi 2022-01-15 09:00:00 33.61 kg/m2 [facility] height 2021-10-12 13:30:00 67 [in_i] [facility] weight 2021-10-12 13:30:00 216.0 [lb_av] [facility] bmi 2021-10-12 13:30:00 33.83 kg/m2 [facility] blood pressure 2021-10-12 13:30:00 123 mm[Hg] [facility] blood pressure 2021-10-12 13:30:00 86 mm[Hg] [facility] diastolic [facility] height 2021-08-31 14:30:00 67 [in_i] [facility] weight 2021-08-31 14:30:00 220.1 [lb_av] [facility] temperature 2021-08-31 14:30:00 97.6 [degF] [facility] bmi 2021-08-31 14:30:00 34.47 kg/m2 [facility] blood pressure 2021-08-31 14:30:00 123 mm[Hg] [facility] systolic [facility] blood pressure 2021-08-31 14:30:00 86 mm[Hg] [facility] diastolic [facility] height 2021-08-04 08:30:00 67 [in_i] [facility] weight 2021-08-04 08:30:00 217.6 [lb_av] [facility] temperature 2021-08-04 08:30:00 97.0 [degF] [facility] bmi 2021-08-04 08:30:00 34.08 kg/m2 [facility] blood pressure 2021-08-04 08:30:00 126 mm[Hg] [facility] systolic [facility] blood pressure 2021-08-04 08:30:00 78 mm[Hg] [facility] diastolic [facility] height 2021-07-25 08:45:00 67 [in_i] [facility] weight 2021-07-25 08:45:00 220 [lb_av] [facility] bmi 2021-07-25 08:45:00 34.45 kg/m2 [facility] blood pressure 2021-07-25 08:45:00 120 mm[Hg] [facility] systolic [facility] blood pressure 2021-07-25 08:45:00 80 mm[Hg] [facility] diastolic [facility] height 2021-07-13 08:00:00 67 [in_i] [facility] weight 2021-07-13 08:00:00 221 [lb_av] [facility] temperature 2021-07-13 08:00:00 97.5 [degF] [facility] bmi 2021-07-13 08:00:00 34.61 kg/m2 [facility] blood pressure 2021-07-13 08:00:00 126 mm[Hg] [facility] systolic [facility] blood pressure 2021-07-13 08:00:00 80 mm[Hg] [facility] diastolic [facility] height 2021-05-04 10:30:00 67 [in_i] [facility] weight 2021-05-04 10:30:00 221 [lb_av] [facility] temperature 2021-05-04 10:30:00 98.1 [degF] [facility] bmi 2021-05-04 10:30:00 34.61 kg/m2 [facility] blood pressure 2021-05-04 10:30:00 114 mm[Hg] [facility] systolic [facility] blood pressure 2021-05-04 10:30:00 72 mm[Hg] [facility] diastolic [facility] height 2021-03-22 11:00:00 67 [in_i] [facility] weight 2021-03-22 11:00:00 221 [lb_av] [facility] temperature 2021-03-22 11:00:00 97.5 [degF] [facility] bmi 2021-03-22 11:00:00 34.61 kg/m2 [facility] blood pressure 2021-03-22 11:00:00 116 mm[Hg] [facility] systolic [facility] blood pressure 2021-03-22 11:00:00 72 mm[Hg] [facility] diastolic [facility] height 2021-02-07 10:30:00 67 [in_i] [facility] weight 2021-02-07 10:30:00 221 [lb_av] [facility] temperature 2021-02-07 10:30:00 98.0 [degF] [facility] bmi 2021-02-07 10:30:00 34.61 kg/m2 [facility] blood pressure 2021-02-07 10:30:00 118 mm[Hg] [facility] systolic [facility] blood pressure 2021-02-07 10:30:00 74 mm[Hg] [facility] diastolic [facility] height 2021-01-26 09:00:00 67 [in_i] [facility] weight 2021-01-26 09:00:00 221.7 [lb_av] [facility] bmi 2021-01-26 09:00:00 34.72 kg/m2 [facility] height 2020-11-10 10:00:00 67 [in_i] [facility] weight 2020-11-10 10:00:00 225.9 [lb_av] [facility] bmi 2020-11-10 10:00:00 35.38 kg/m2 [facility] - [facility] blood pressure 2020-11-10 10:00:00 116 mm[Hg] [facility] systolic [facility] blood pressure 2020-11-10 10:00:00 90 mm[Hg] [facility] Hospital Procedures This patient has no known procedures. Plan of Care Planned Activity Planned Date Details Comments Source Future Scheduled 2022-06-07 Lipid panel (procedure) [facility] 00:00:00 [code = 19723276] Medical Ce nter Future Scheduled 2022-06-07 Lipid panel (procedure) [facility] 00:00:00 [code = 39608286] Medical Ce nter Future Scheduled 2022-06-07 Lipid panel (procedure) [facility] 00:00:00 [code = 91176270] Medical nter Future Scheduled 2022-03-[address] [facility] 00:00:00 (12+) [code = [facility] DEPRESSION SCREENING (12+)] Future Scheduled 2022-03-[address] [facility] 00:00:00 (12+) [code = [facility] DEPRESSION SCREENING (12+)] Future Scheduled 2021-11-16 INFLUENZA VACCINE (#1) [facility] [code = INFLUENZA Medical Ce nter VACCINE (#1)] Future Scheduled 2021-11-16 INFLUENZA VACCINE (#1) [facility] 00:00:00 [code = INFLUENZA Medical Ce nter VACCINE (#1)] Future Scheduled 2020-11-16 INFLUENZA VACCINE (#1) [facility] 00:00:00 [code = INFLUENZA Medical Ce nter VACCINE (#1)] Future Scheduled 2020-06-[address] [facility] 00:00:00 Counseling and Medical Cente r Screening (12+) [code = Tobacco Cessation Counseling and Screening (12+)] Future Scheduled 2020-06-[address] [facility] 00:00:00 Counseling and Medical Cente r Screening (12+) [code = Tobacco Cessation Counseling and Screening (12+)] Future Scheduled 2020-03-[address] [facility] 00:00:00 (12+) [code = [facility] DEPRESSION SCREENING (12+)] Future Scheduled 2013 SHINGLES VACCINES ([address] [facility] 00:00:00 2) [code = SHINGLES [facility] VACCINES (1 of 2)] Future Scheduled 2013 SHINGLES VACCINES ([address] [facility] 00:00:00 2) [code = SHINGLES Medical Center VACCINES (1 of 2)] Future Scheduled 2013 SHINGLES VACCINES ([address] [facility] 00:00:00 2) [code = SHINGLES Medical Center VACCINES (1 of 2)] Future Scheduled 1984 Screening for malignant [facility] 00:00:00 neoplasm of cervix Medical C enter (procedure) [code = 533876633] Future Scheduled 1984 Screening for malignant [facility] 00:00:00 neoplasm of cervix Medical C enter (procedure) [code = 296742736] Future Scheduled 1984 Screening for malignant [facility] 00:00:00 neoplasm of cervix Medical C enter (procedure) [code = 701017525] Future Scheduled 1982 DTAP/TDAP/TD VACCINES [facility] 00:00:00 (1 - Tdap) [code = Medical C enter DTAP/TDAP/TD VACCINES (1 - Tdap)] Future Scheduled 1982 DTAP/TDAP/TD VACCINES [facility] 00:00:00 (1 - Tdap) [code = Medical C enter DTAP/TDAP/TD VACCINES (1 - Tdap)] Future Scheduled 1982 DTAP/TDAP/TD VACCINES [facility] 00:00:00 (1 - Tdap) [code = Medical C enter DTAP/TDAP/TD VACCINES (1 - Tdap)] Future Scheduled 1981 HEPATITIS C [facility]CRE[facility]ING [facility]:00 [code = HEPATITIS C Medical Center SCREENING] Future Scheduled 1981 HEPATITIS C [facility]:00 [code = HEPATITIS C Medical Center SCREENING] Future Scheduled 1981 HEPATITIS C [facility]:00 [code = HEPATITIS C Medical Center SCREENING] Future Scheduled 1975 COVID-19 VACCINE (1) [facility] 00:00:00 [code = COVID-[address] VACCINE (1)] Future Scheduled 1965 COVID-19 VACCINE (#1) [facility] 00:00:00 [code = COVID-[address] VACCINE (#1)] Future Scheduled 1965 COVID-19 VACCINE (#1) [facility]:00:00 [code = COVID-[address] VACCINE (#1)] Future Scheduled 1963 Screening for malignant [facility] 00:00:00 neoplasm of breast Medical C enter (procedure) [code = 401544011] Future Scheduled 1963 Screening for malignant [facility] 00:00:00 neoplasm of colon Medical Ce nter (procedure) [code = 554799293] Future Scheduled 1963 Screening for malignant [facility] 00:00:00 neoplasm of breast Medical C enter (procedure) [code = 649053134] Future Scheduled 1965 CT Colonography (combo) [facility] 00:00:00 [code = CT Colonography [facility] (combo)] Future Scheduled 1963 Screening for malignant [facility] 00:00:00 neoplasm of colon Medical Ce nter (procedure) [code = 464779623] Future Scheduled 1963 Screening for malignant [facility] 00:00:00 neoplasm of colon Medical Ce nter (procedure) [code = 911715940] Future Scheduled 1963 Screening for malignant [facility] 00:00:00 neoplasm of colon Medical Ce nter (procedure) [code = 084571278] Future Scheduled 1963 Screening for malignant [facility] 00:00:00 neoplasm of colon Medical Ce nter (procedure) [code = 200905885] Future Scheduled 1965 Sigmoidoscopy [code = [facility]] Medical Cente r Future Scheduled 1963 Screening for malignant [facility] 00:00:00 neoplasm of breast Medical C enter (procedure) [code = 720442106] Future Scheduled 1963 CT Colonography (combo) [facility] 00:00:00 [code = CT Colonography [facility] (combo)] Future Scheduled 1963 Screening for malignant [facility] 00:00:00 neoplasm of colon Medical Ce nter (procedure) [code = 405084453] Future Scheduled 1963 Screening for malignant [facility] 00:00:00 neoplasm of colon Medical Ce nter (procedure) [code = 926169451] Future Scheduled 1963 Screening for malignant [facility] 00:00:00 neoplasm of colon Medical Ce nter (procedure) [code = 054942298] Future Scheduled 1963 Screening for malignant [facility] 00:00:00 neoplasm of colon Medical Ce nter (procedure) [code = 467918222] Future Scheduled 1965 Sigmoidoscopy [code = [facility] S[facility]oscopy] Medical Cente r Encounters Start End Encounter Admission Attending Care Care Encounter Source Date/Time Date/Time Type Type Clinicians Facility Department ID 2022-02-01 Outpatient Zabala, STLMLC STLMLC [id number] Common 08:38:01 Stephen [place] 2022-01-15 Outpatient Zabala, STLMLC STLMLC [id number] Common 09:05:01 Stephen [place] 2021-07-13 Outpatient Zabala, STLMLC STLMLC [id number] Common 08:44:02 Stephen [place] 2021-05-03 Outpatient Zabala, STLMLC STLMLC [id number] Common 09:39:01 Stephen [place] 2021-04-12 Outpatient Zabala, STLMLC STLMLC [id number] Common 14:30:12 Stephen [place] 2021-04-12 Outpatient Zabala, STLMLC STLMLC [id number] Common 14:29:27 Stephen 15249 [place] 2021-04-12 Outpatient Zabala, STLMLC STLMLC [id number] Common 14:19:08 Stephen 85419 [place] 2021-04-12 Outpatient Zbaala, STLMLC STLMLC [id number] Common 14:16:56 Stephen 07514 [place] 2021-04-12 Outpatient Zabala, STLMLC STLMLC [id number] Common 14:15:28 Stephen 26088 [place] 2021-04-12 Outpatient Zabala, STLMLC STLMLC [id number] Common 14:11:14 Stephen Foy0 [place] 2021-04-12 Outpatient Zabala, STLMLC STLMLC [id number] Common 13:05:55 Stephen Arceo20 [place] 2021-04-12 Outpatient Zabala, STLMLC STLMLC [id number] Common 13:02:58 Stephen Kenyon [place] 2021-04-12 Outpatient Zabala, STLMLC STLMLC [id number] Common 13:01:28 Stephen Bellamy [place] 2021-04-12 Outpatient STLMLC STLMLC [id number] Common 12:50:30 46214 [place] 2021-04-12 Outpatient STLMLC STLMLC [id number] Common 11:32:42 46191 [place] 2022-02-01 2022-02-01 (TEL) STLMLC STLMLC [id number] Co mmon 00:00:00 00:00:00 [place] 2022-01-15 2022-01-15 OFFICE STLMLC STLMLC [id number] Co mmon 00:00:00 00:00:00 VISIT EST Spir it PT LEVEL 3 [facility] 2021-10-12 2021-10-12 NON-BILLAB STLMLC STLMLC [id number] Common 00:00:00 00:00:00 [facility] 2021-09-29 2021-09-29 Outpatient DMG DMG [id number] [facility] 03:58:00 03:58:00 [facility] 2021-08-31 2021-08-31 NON-BILLAB STLMLC STLMLC [id number] Common 00:00:00 00:00:00 [facility] 2021-08-21 2021-08-21 (TEL) STLMLC STLMLC [id number] Co mmon 00:00:00 00:00:00 [place] 2021-08-10 2021-08-10 (TEL) STLMLC STLMLC [id number] Co mmon 00:00:00 00:00:00 [place] 2021-08-04 2021-08-04 NON-BILLAB STLMLC STLMLC [id number] Common 00:00:00 00:00:00 LE [facility] 2021-08-02 2021-08-02 (TEL) STLMLC STLMLC [id number] Co mmon 00:00:00 00:00:00 [place] 2021-07-25 2021-07-25 NON-BILLAB STLMLC STLMLC [id number] Common 00:00:00 00:00:00 [facility]IT [facility] 2021-07-25 2021-07-25 (TEL) STLMLC STLMLC [id number] Co mmon 00:00:00 00:00:00 [place] 2021-07-17 2021-07-17 (TEL) STLMLC STLMLC [id number] Co mmon 00:00:00 00:00:00 [place] 2021-07-13 2021-07-13 OFFICE STLMLC STLMLC [id number] Co mmon 00:00:00 00:00:00 VISIT [facility] 4 [facility] 2021-07-06 2021-07-06 (TEL) STLMLC STLMLC [id number] Co mmon 00:00:00 00:00:00 [place] 2021-06-01 2021-06-01 (TEL) STLMLC STLMLC [id number] Co mmon 00:00:00 00:00:00 [place] 2021-05-25 2021-05-25 (TEL) STLMLC STLMLC [id number] Co mmon 00:00:00 00:00:00 [place] 2021-05-08 2021-05-08 (TEL) STLMLC STLMLC [id number] Co mmon 00:00:00 00:00:00 [place] 2021-05-04 2021-05-04 NON-BILLAB STLMLC STLMLC [id number] Common 00:00:00 00:00:00 LE VISIT [facility] 2021-05-04 2021-05-04 (TEL) STLMLC STLMLC [id number] Co mmon 00:00:00 00:00:00 [place] 2021-03-23 2021-03-23 (TEL) STLMLC STLMLC [id number] Co mmon 00:00:00 00:00:00 [place] 2021-03-22 2021-03-22 NON-BILLAB STLMLC STLMLC [id number] Common 00:00:00 00:00:00 LE VISIT [facility] 2021-03-07 2021-03-07 (TEL) STLMLC STLMLC [id number] Co mmon 00:00:00 00:00:00 [place] 2021-03-07 2021-03-07 (TEL) STLMLC STLMLC [id number] Co mmon 00:00:00 00:00:00 [place] 2021-02-27 2021-02-27 (TEL) STLMLC STLMLC [id number] Co mmon 00:00:00 00:00:00 [place] 2021-02-16 2021-02-16 (TEL) STLMLC STLMLC [id number] Co mmon 00:00:00 00:00:00 [place] 2021-02-07 2021-02-07 (TEL) STLMLC STLMLC [id number] Co mmon 00:00:00 00:00:00 [place] 2021-02-07 2021-02-07 Postop STLMLC STLMLC [id number] Co mmon 00:00:00 00:00:00 visit [place] 2021-02-02 2021-02-02 (TEL) STLMLC STLMLC [id number] Co mmon 00:00:00 00:00:00 [place] 2021-01-27 2021-01-27 (TEL) STLMLC STLMLC [id number] Co mmon 00:00:00 00:00:00 [place] 2021-01-26 2021-01-26 OFFICE STLMLC STLMLC [id number] Co mmon 00:00:00 00:00:00 VISIT [facility] PT - [facility]I LEVEL 4 [facility] 2021-01-12 2021-01-12 Outpatient DMG DMG [id number] [facility] 11:00:00 11:00:00 [facility] 2020-12-12 2020-12-12 (TEL) STLMLC STLMLC [id number] Co mmon 00:00:00 00:00:00 [place] 2020-12-09 2020-12-09 Inpatient JJ Edward SUGL [id number] [facility] 08:45:00 08:21:00 Ta Garcia [facility] 2020-11-16 2020-11-16 (TEL) STLMLC STLMLC [id number] Co mmon 00:00:00 00:00:00 [place] 2020-11-10 2020-11-10 OFFICE STLMLC STLMLC [id number] Co mmon 00:00:00 00:00:00 VISIT [facility] ESTAB PT - CHI LEVEL 4 [facility] 2020-09-21 2020-09-21 Outpatient STLMLC STLMLC [id number] Common 00:00:00 00:00:00 [place] 2020-08-09 2020-08-09 Outpatient STLMLC STLMLC [id number] Common 00:00:00 00:00:00 [place] 2020-08-09 2020-08-09 Outpatient STLMLC STLMLC [id number] Common 00:00:00 00:00:00 [place] 2020-08-09 2020-08-09 Outpatient STLMLC STLMLC [id number] Common 00:00:00 00:00:00 [place] 2020-07-28 2020-07-28 Outpatient STLMLC STLMLC [id number] Common 00:00:00 00:00:00 [place] 2019-10-08 2019-10-08 Out[id number] Common 08:00:00 08:00:00 [facility] 2019-06-03 2019-06-03 Outpatient [facility] [id number] SLE 04:29:00 04:29:00 [id number] Results Test Description Test Time Test Comments Results Result [facility] e Comments - NM MYOCRD SPECT 2020-12-13 R/S MULT 14:12:00 [facility] 1965 Sex: F Patient Name: KENIA RECINOS Unit No: [id number] EXAMS: CPT CODE: [id number] NM MYOCRD SPECT R/S MULT [id number] INDICATION: CAD. The patient underwent myocardial perfusion [...] CC: Mook AGOSTO; Ta Velazquez Technologist: Peggy Mavumkal RT(N) Transcrpt Date/Tm/Trnsp: 12/13/2020 (1412) GeovannyGSP Orig Print D/T: S: 12/13/2020 (9765) [facility] NAME: KENIA RECINOS [address] [facility], [facility] [address] PHYS: [place] [address] : 1965 AGE: 55 SEX: F LOC: FEI PHONE #: [phone] EXAM DATE: 12/09/2020 STATUS: DEP CLI FAX #: [phone] RADIOLOGY NO: PAGE 1 Signed Report PHOSPHORUS 2019-06-14 05:44:00 Test Item Value Reference Range Interpretation Comme nts PHOSPHORUS (BEAKER) (test code = 604) 4.7 mg/dL 2.3-4.7 Blending Technician ID - BEKA [id number] 05:44:00 Test Item Value Reference Range Interpretation Comments MAGNESIUM (BEAKER) (test code = 2.0 mg/dL 1.6-2.6 627) Blending Technician ID - BEKA MBASIC METABOLIC [id number] 05:44:00 Test Item Value Reference Range Interpretation [...] S NOT APPLICABLE FOR DIALYSIS PATIEN TS. Blending Technician ID - BEKA MCBC W/PLT COUNT & AUTO [id number] 04:57:00 Test Item Value Reference Range Interpretation [...] 0-1 PERCENT (BEAKER) (test code = 2801) [id number] 05:16:00 Test Item Value Reference Range Interpretation Comments PHOSPHORUS (BEAKER) (test code = 4.5 mg/dL 2.3-4.7 604) Blending Technician ID - KATHY [id number] 05:16:00 Test Item Value Reference Range Interpretation Comments MAGNESIUM (BEAKER) (test code = 2.1 mg/dL 1.6-2.6 627) Blending Technician ID - PIHARI LBASIC METABOLIC [id number] 05:16:00 Test Item Value Reference Range Interpretation [...] S NOT APPLICABLE FOR DIALYSIS PATIEN TS. Blending Technician ID - PIAYA LCBC W/PLT COUNT & AUTO [id number] 04:31:00 Test Item Value Reference Range Interpretation [...] 0-1 PERCENT (BEAKER) (test code = 2801) [id number] 05:31:00 Test Item Value Reference Range Interpretation Comments PHOSPHORUS (BEAKER) (test code = 3.2 mg/dL 2.3-4.7 604) Blending Technician ID - PIAYA [id number] 05:31:00 Test Item Value Reference Range Interpretation Comments MAGNESIUM (BEAKER) (test code = 2.0 mg/dL 1.6-2.6 627) Blending Technician ID - PIHARI LBASIC METABOLIC [id number] 05:31:00 Test Item Value Reference Range Interpretation [...] S NOT APPLICABLE FOR DIALYSIS PATIEN TS. Blending Technician ID - PIHARI LCBC W/PLT COUNT & AUTO [id number] 04:48:00 Test Item Value Reference Range Interpretation [...] PERCENT (BEAKER) (test code = 2801) TISSUE [id number] 13:18:00Surgical Pathology Report Case: [id number] Authorizing Provider: Tony Cerda II, MD Collected: 06/09/2019 01:55 PM Ordering Location: [facility] Received: 06/09/2019 02:04 PM SERVICES Pathologist: [...] CHRONIC ACTIVE HELICOBACTER PYLORI GASTRITIS - NEGATIVE FORDYSPLASIA OR MALIGNANCY - UNREMARKABLE LIVER PARENCHYMA - SIX BENIGN LYMPH NODES (0/6) Signing Pathologist Direct Phone Line: [phone] signed by Layton Latif MD on 06/11/2019 at 1:18 PMA. The entire ulcer and surrounding area is submitted for histopathologic examination. There is no evidence of malignancy. 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 Concomitant H.pylori infection is also noted. Marked submucosal scarring, foreign body giant cell reaction and reactive mesothelial proliferation suggest the possibility of remote perforation.[id number] massA. Gastric. Simple gastrectomy, left partial hepatectomy; stitch sanders distal end--Show and Tell; B. Soft tissue, other, falciformA. The specimen is received fresh, labeled "Gastric, simple gastrectomy, left partial hepatectomy; stitch sanders distal end--Show and Tell" and consists of a partial gastrectomy measuring 21 cm along the greater curvature,9.0 cm along the lesser curvature, 2.2 cm from anterior to posterior with a 5 cm distal stapled margin marked by surgeon with suture. The attached fat measures 6.5 x 3.6 x 2.0 cm along the lesser curvature. The specimen is opened along [...] cm in depth with a hematoma collection and fibrotic soft tissue underneath the ulcer. The ulcer is limited to the mucosa. Grossly there are multiple metal susanna and sutures identified inside the ulcer and surrounding soft tissue, consistent with prior surgery. The remainder of the gastric mucosa is unremarkable.Ink code: distal margin black; proximal blue. Serosa underneath lesion, orange. Section code: A1, distal margin en face; A2-A3, proximal margin en face; A4, lesser curvature mesenteric margin; A5, greater curvature mesenteric margin; A6-A18, ulcer with adjacent tissue, full thickness, entirely submitted; A19, energy conservation representative section of uninvolved stomach; A20, three lymph nodes; A21, two lymph nodes; A22-A39, fat entirely submitted. WA/pl/ewB. The s pecimen is received in formalin labeled "Falciform" and consists of a 7.8 x 4.5 x 1.7 cm yadav-yellow fibroadipose tissue. The cauterized margin is inked as blue and serially sectioned and submitted entirely in cassette B1. The specimen is serially sectioned to show yadav-yellow fibroadipose tissue. A 1 x1 x 1 cm lymph node is identified grossly. The cut surface of the lymph node is yadav-pink and homogeneous. The lymph node is serially sectioned and submitted entirely in cassette B2-B3. The remaining ofthe specimen is serially sectioned and submitted entirely [...] run alongside of the patients sample show appropriate staining. Internal positive and negative controls when available are evaluated Immunohistochemistry technical testing was performed at [facility] Pathology Laboratory where it was developed and its performance characteristics were determined. It has not been cleared or approved by the U.S. Foodand Drug Administration. The FDA has determined that such clearance or approval is not necessary. The test is used for clinical purposes. It should not be regarded as investigational or for research. This laboratory is certified under the Clinical Laboratory Improvement Amendments of 1988 (CLIA-88) asqualified to perform high complexity clinical laboratory testing.[facility]OS[facility]ORUS 2019-06-11 07:07:00 Test Item Value Reference Range Interpretation Comments PHOSPHORUS (BEAKER) (test code = 2.7 mg/dL 2.3-4.7 604) Blending Technician ID - BEKA [id number] 07:07:00 Test Item Value Reference Range Interpretation Comments MAGNESIUM (BEAKER) (test code = 1.9 mg/dL 1.6-2.6 627) Blending Technician ID - BEKA MBASIC METABOLIC [id number] 07:07:00 Test Item Value Reference Range Interpretation [...] S NOT APPLICABLE FOR DIALYSIS PATIEN TS. Blending Technician ID - BEKA MCBC W/PLT COUNT & AUTO [id number] 06:52:00 Test Item Value Reference Range Interpretation [...] = 2801) CBC W/PLT COUNT & AUTO [id number] 04:56:00 Test Item Value Reference Range Interpretation [...] (BEAKER) (test code = 2801) BASIC METABOLIC [id number] 04:35:00 Test Item Value Reference Range Interpretation [...] S NOT APPLICABLE FOR DIALYSIS PATIEN TS. Blending Technician ID - BEKA [id number] 16:54:00 Test Item Value Reference Range Interpretation Comments PHOSPHORUS (BEAKER) (test code = 4.5 mg/dL 2.3-4.7 604) Blending Technician ID - [id number] 16:54:00 Test Item Value Reference Range Interpretation Comments MAGNESIUM (BEAKER) (test code = 1.9 mg/dL 1.6-2.6 627) Blending Technician ID - APRILBASIC METABOLIC [id number] 16:54:00 Test Item Value Reference Range Interpretation [...] S NOT APPLICABLE FOR DIALYSIS PATIEN TS. Blending Technician ID - APRILBluestem BrandsSIC METABOLIC [id number] 05:01:00 Test Item Value Reference Range Interpretation [...] S NOT APPLICABLE FOR DIALYSIS PATIEN TS. Blending Technician ID - BEKA MPROTHROMBIN [id number] 04:35:00 Test Item Value Reference Range Interpretation Comments PROTIME (BEAKER) (test code = 13.1 seconds 11.9-14.2 759) INR (BEAKER) (test code = 370) 1.0 <=5.9 Effective 08/13/2018: PT Reference Range ChangeNew: 11.9-14.2 Previous: 11.7- 14.7RECOMMENDED COUMADIN/WARFARIN INR THERAPY RANGESSTANDARD DOSE: 2.0-3.0 Includes: PROPHYLAXIS for venous thrombosis, systemic embolization; TREATMENT for venous thrombosis and/or pulmonary embolus.HIGH RISK: Target INR is 2.5-3.5 for patients wiht mechanical heart valves.CBC W/PLT COUNT & AUTO [id number] 04:30:00 Test Item Value Reference Range Interpretation [...] PERCENT (BEAKER) (test code = 2801) HEMOGLOBIN [id number] 18:58:00 Test Item Value Reference Range Interpretation Comments HEMOGLOBIN A1C (BEAKER) (test code = 5.9 % 4.3-6.1 368) LIPID [id number] 11:20:00 Test Item Value Reference Range Interpretation Comments TRIGLYCERIDES (BEAKER) (test code = 63 mg/dL 540) CHOLESTEROL (BEAKER) (test code = 159 mg/dL 631) HDL CHOLESTEROL (BEAKER) (test code 60 mg/dL = 976) LDL CHOLESTEROL CALCULATED (BEAKER) 86 mg/dL (test code = 633) Triglyceride Reference Range: Low Risk <150 Borderline 150-199 High Risk 200- 499 Very High Risk >=500Cholesterol Reference Range: Low Risk <200 Borderline 200-239 High Risk >240HDL Cholesterol Reference Range: Low Risk >=60 High Risk <40LDL Cholesterol Reference Range: Optimal <100 Near Optimal 100-129 Borderline 130-159 High 160-189 Very High >=190 Blending Technician ID - NTPBASIC METABOLIC [id number] 04:45:00 Test Item Value Reference Range Interpretation [...] S NOT APPLICABLE FOR DIALYSIS PATIEN TS. Blending Technician ID - PIAYA LCBC W/PLT COUNT & AUTO [id number] 04:17:00 Test Item Value Reference Range Interpretation [...] (BEAKER) (test code = 2801) HEMOGLOBIN AND [id number] 05:46:00 Test Item Value Reference Range Interpretation Comments HEMOGLOBIN (BEAKER) (test code = 8.8 GM/DL 11.2-15.7 L 410) HEMATOCRIT (BEAKER) (test code = 27.4 % 34.1-44.9 L 411) Blending Technician ID - [id number] W/PLT COUNT & AUTO [id number] 05:46:00 Test Item Value Reference Range Interpretation [...] (BEAKER) (test code = 2801) HEMOGLOBIN AND [id number] 15:16:00 Test Item Value Reference Range Interpretation Comments HEMOGLOBIN (BEAKER) (test code = 8.4 GM/DL 11.2-15.7 L 410) HEMATOCRIT (BEAKER) (test code = 27.0 % 34.1-44.9 L 411) Blending Technician ID - [id number] ANTIGEN (CEA)2019-06-06 05:41:00 Test Item Value Reference Range Interpretation Comments CARCINOEMBRYONIC ANTIGEN (BEAKER) 1.1 ng/mL 0.0-5.0 (test code = 685) Blending Technician ID - PIAYA LBASIC METABOLIC [id number] 05:18:00 Test Item Value Reference Range Interpretation [...] S NOT APPLICABLE FOR DIALYSIS PATIEN TS. Blending Technician ID - BEKA MHEMOGLOBIN AND [id number] 04:58:00 Test Item Value Reference Range Interpretation Comments HEMOGLOBIN (BEAKER) (test code = 7.9 GM/DL 11.2-15.7 L 410) HEMATOCRIT (BEAKER) (test code = 24.8 % 34.1-44.9 L 411) Blending Technician ID - [id number] W/PLT COUNT & AUTO [id number] 04:58:00 Test Item Value Reference Range Interpretation [...] (BEAKER) (test code = 2801) HEMOGLOBIN AND [id number] 16:02:00 Test Item Value Reference Range Interpretation Comments HEMOGLOBIN (BEAKER) (test code = 8.5 GM/DL 11.2-15.7 L 410) HEMATOCRIT (BEAKER) (test code = 26.6 % 34.1-44.9 L 411) Blending Technician ID - [id number], [id number] 10:43:00Triphase CT: gastric mass on EUS was reportedly vascular.Please specify:->Multiphase LiverFINAL REPORT ABDOMINAL AND PELVIS CT DATED 06/05/2019 CLINICAL INFORMATION: triph asic CT, eval gastric mass, c/f blood clot on EUS TECHNIQUE: Axial images of the abdomen and pelvis were obtained from diaphragm to the pubic symphysis contrast. This exam was performed according to our departmental dose-optimization program, which includes automated exposure control, adjustment of the mA and/or kV according to patient size and/or use of interactive reconstruction technique. COMMENT:Patient is status post gastric bypass surgery with gastrojejunostomy. There is diffuse wall thickening in the gastric remnant. Hyperdense fluid is seen in the gastric remnant suggestive of hematoma. Noactive bleeding is visualized. The small large bowel are unremarkable. Appendix is normal in caliber. Liver and spleen are normal in size without focal abnormality. Gallbladder is surgically absent. Nobiliary dilatation is noted. Pancreas and adrenals are unremarkable. Both kidneys are normal in sizeand functioning with bilateral excretion. No hydronephrosis, hydroureter, urolithiasis is seen. Uteru s surgically absent. Both ovaries not seen. No mass, adenopathy or ascites is present. IMPRESSION: 1. No metastatic disease in the abdomen or pelvis.2. Status post gastric bypass surgery with gastrojejunostomy.3. Hyperdense the fluid in the gastric remnant suggestive of hematoma without active bleeding seen. Signed: Kalyn Hurst MDReport Verified Date/Time: 06/05/2019 10:43:36 Reading Location: [facility] [id number] CT Body Reading Room RAD, CHEST, 1 VIEW, NON [id number] 10:31:00Reason for exam:->coughFINAL REPORT TECHNIQUE: Frontal chest radiograph dated 06/05/2019. CLINICAL HISTORY: Cough COMPARISON STUDY: None IMPRESSION:Lungs are clear. No pleural effusion or pneumothorax. Car diomediastinal silhouette is normal in size. No pulmonary edema. Degenerative changes are seen in the spine. Signed: Latisha Hernandez MDReport Verified Date/Time: 06/05/2019 10:31:41 Reading Location: [address] Radiology Reading Room TISSUE [id number] 08:47:00Surgical Pathology Report Case: [id number] Authorizing Provider: Anthony Rae Collected: 06/04/2019 1250 MD Blaze Ordering Location: [address] Received: 06/04/2019 1522 Service P athologist: Daniel Reid MD Specimen: Mass, Remnant Gastric Mass Bx PART A GASTRIC BIOPSY FOR SUSPECTED MASS:SPECIMEN CONSISTS PREDOMINANTLY OF BLOOD AND RARE BENIGN MUCOSAL TISSUE.NO MORPHOLOGIC EVIDENCE OF MALIGNANCY.THE SAMPLED MATERIAL MAY NOT BE FULLY ACTIVITY THERAPY SPECIALIST (SEE DIAGNOSTIC COMMENT). Signing Pathologist Direct Phone Line: [phone] signed by Bertram Reid MD on 06/05/2019 at 8:47 AMThis patient has a a reported clinical history of a gastric mass as per the electronic medical record in [facility]. There is no evidence of malignancy in the current biopsy however the sampled material may not be fully energy conservation representative. If there is a clinical concern for a malignancy, additional tissue based studies may be warranted.[id number] massMass The specimen is received in formalin labeled with the patient's information accession number and medical record number andconsists of a 1.5 x 0.5 x 0.1 cm dark red soft tissue. The entire specimen is submitted entirely in cassette A1. WA/plPerformed.The interpretation of this case included the use of immunohistochemistry or special stains.Control Slides Examined: In-house known positive controls were evaluated along withthe test tissue. These control slides run alongside of the patients sample show appropriate staining. Internal positive and negative controls when available are evaluated Immunohistochemistry technicaltesting was performed at [facility], Pathology Laboratory where it was [...] qualified to perform high complexity clinical laboratory testing.[facility], Department of Pathology, [address] [place] [id number], [facility], [address] [place] [id number], [facility], [facility], [address] [place], [place] [id number], SZRTJ METABOLIC [id number] 05:20:00 Test Item Value Reference Range Interpretation [...] S NOT APPLICABLE FOR DIALYSIS PATIEN TS. Blending Technician ID - MARISOL WCBC W/PLT COUNT & AUTO [id number] 05:05:00 Test Item Value Reference Range Interpretation [...] = 2801) CBC W/PLT COUNT & AUTO [id number] 21:50:00 Test Item Value Reference Range Interpretation [...] (BEAKER) (test code = 2801) BASIC METABOLIC [id number] 18:05:00 Test Item Value Reference Range Interpretation [...] S NOT APPLICABLE FOR DIALYSIS PATIEN TS. Blending Technician ID - [id number] 04:52:00 Test Item Value Reference Range Interpretation Comments FERRITIN (BEAKER) (test code = 361) 6 ng/mL 5-275 Blending Technician ID - MARISOL LITTLE, TIBC, % SAT. (WITHOUT FERRITIN)2019-06-04 04:32:00 Test Item Value Reference Range Interpretation Comments IRON (BEAKER) (test code = 547) 105.0 ug/dL 40.0-160.0 TOTAL IRON BINDING CAPACITY 250 ug/dL 250-450 (BEAKER) (test code = 769) IRON % SATURATION (2) (BEAKER) 42 % 20-55 (test code = 2590) Blending Technician ID - MARISOL WHEPATIC FUNCTION [id number] 07:07:00 Test Item Value Reference Range Interpretation [...] (test code = 8 U/L 6-55 347) Blending Technician ID - BEKA MBASIC METABOLIC [id number] 07:07:00 Test Item Value Reference Range Interpretation [...] S NOT APPLICABLE FOR DIALYSIS PATIEN TS. Blending Technician ID - BEKA MCBC W/PLT COUNT & AUTO [id number] 06:31:00 Test Item Value Reference Range Interpretation [...] % 0-1 PERCENT (BEAKER) (test code = 1289)
[2022-04-16 08:23] LABS: Hematocrit 37.7 % (36.0-45.0); Lymphocytes % 26.8 % (15.3-44.8); MCV 86.1 fL (80-100); MPV 9.1 fL (7.6-11.3); RBC Red Blood Cell Count 4.39 M/uL (3.86-4.86)
[2022-04-16 08:25] LABS: Urine Blood Negative (Negative); Urine Glucose Negative (Negative); Urine Protein Negative (Negative); Urine Specific Gravity 1.015 (1.005-1.030)
[2022-04-16 08:37] LABS: Albumin 3.7 g/dL (3.4-5.0); Bilirubin Total 0.4 mg/dL (0.2-1.0); Potassium 4.2 mmol/L (3.5-5.1); Protein, Total 7.2 g/dL (6.4-8.2)
--- NOTE | 2022-04-16 09:14 | RAD REPORT ---
EXAM DESCRIPTION: CTAbdomen Pelvis W Contrast - 04/16/2022 8:55 am CLINICAL HISTORY: Abdominal pain. LLQ abd pain COMPARISON: Abdomen Pelvis W Contrast dated 06/02/2019 TECHNIQUE: Biphasic CT imaging of the abdomen and pelvis was performed with 100 ml non-ionic IV cont rast. All CT scans are performed using dose optimization technique as appropriate and may include automated exposure control or mA/KV adjustment according to patient size. FINDINGS: The lung bases are clear.Postsurgical changes affect the stomach. Cholecystectomy clips. The liver, spleen, pancreas, adrenal glands and kidneys are within normal limits. No bowel obstruction, free air, free fluid or abscess. Prominent sigmoid diverticulosis coli without diverticulitis. The appendix is normal. No evidence of significant lymphadenopathy. Mild lumbar degenerative changes IMPRESSION: No acute intra-abdominal or pelvic finding.
--- NOTE | 2022-04-16 09:21 | ER ---
Nurse's Notes [facility] Name: Kenia Recinos Age: 56 yrs Sex: Female : 1965 Arrival Date: 04/16/2022 Time: 07:46 Bed 13 Private MD: Stephen Zabala E Diagnosis: Lower abdominal pain, unspecified;Diarrhea, unspecified Presentation: 04/16 07:57 Chief complaint: Patient states: she has left lower abdominal pain that started at 1000 ap3 yesterday morning. patient reports the pain has gotten increasingly worse since then. patient also reports diarrhea over the last few weeks, but denies any nausea or vomiting. Coronavirus screen: At this time, the client does not indicate any symptoms associated with coronavirus-19. Ebola Screen: No symptoms or risks identified at this time. Initial Sepsis Screen: Does the patient meet any 2 criteria? No. Patient's initial sepsis screen is negative. Does the patient have a suspected source of infection? No. Patient's initial sepsis screen is negative. Risk Assessment: Do you want to hurt yourself or someone else? Patient reports no desire to harm self or others. Onset of symptoms was April 15, 2022. 07:57 Method Of Arrival: Ambulatory ap3 07:57 Acuity: JAMEEL 3 ap3 Triage Assessment: 08:00 General: Appears uncomfortable, Behavior is calm, cooperative. Pain: Complains of pain ap3 in left lower quadrant Pain began gradually, 1 day ago. Neuro: Level of Consciousness is awake, alert, obeys commands, Oriented to person, place, time, situation. Cardiovascular: Patient's skin is warm and dry. Respiratory: Airway is patent Respiratory effort is even, unlabored. GI: Reports diarrhea. Historical: - Allergies: 07:58 Biaxin; ap3 - Home Meds: 07:58 phentermine oral [Active]; ap3 - PMHx: 07:58 hernia repair; gastric bypass; skin cancer; RASHAWN knee repair; ap3 - Immunization history:: Client reports receiving the 2nd dose of the Covid vaccine. - Social history:: Smoking status: Patient denies any tobacco usage or history of. - Family history:: not pertinent. - Hospitalizations: : No recent hospitalization is reported. Screenin:[facility] ED Fall Risk Assessment (Adult) History of falling in the last 3 months, ap3 including since admission No falls in past 3 months (0 pts). Abuse screen: Denies threats or abuse. Nutritional screening: No deficits noted. Tuberculosis screening: No symptoms or risk factors identified. Assessment: 08:15 Reassessment: Patient appears in no apparent distress at this time. Patient and/or db family updated on plan of care and expected duration. Pain level reassessed. Patient is alert, oriented x 3, equal unlabored respirations, skin warm/dry/pink. patient reports abdominal pain and diarrhea. 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 General: Appears in no apparent distress. comfortable, Behavior is calm, cooperative. Pain: Complains of pain in abdomen and left lower quadrant. Neuro: Level of Consciousness is awake, alert, obeys commands, Oriented to person, place, time, situation. Respiratory: Airway is patent Respiratory effort is even, unlabored, Respiratory pattern is regular, symmetrical. 09:00 GI: Bowel sounds present X 4 quads. Abd is soft. db 09:28 Reassessment: discharge pending stool sample. Dr. Montenegro at patient bedside. db 10:15 Reassessment: Patient appears in no apparent distress at this time. Patient and/or db family updated on plan of care and expected duration. Pain level reassessed. Patient is alert, oriented x 3, equal unlabored respirations, skin warm/dry/pink. patient walking around. attempting to have bowel movement. 10:15 Reassessment: Patient appears in no apparent distress at this time. Patient and/or db family updated on plan of care and expected duration. Pain level reassessed. Patient is alert, oriented x 3, equal unlabored respirations, skin warm/dry/pink. Vital Signs: 07:57 BP 142 / 67; Pulse 72; Resp 18; Temp 97.2; Pulse Ox 100% ; Weight 95.25 kg; Height 5 ap3 ft. 7 in. (170.18 cm); 09:00 BP 109 / 92; Pulse 64; Resp 18; Pulse Ox 100% on R/A; db 11:50 BP 108 / 88; Pulse 66; Resp 18; Pulse Ox 100% on R/A; db 07:57 Body Mass Index 32.89 (95.25 kg, 170.18 cm) ap3 ED Course: 07:46 Patient arrived in ED. am2 07:46 Serjio Montenegro MD is Attending Physician. rn 07:46 Stephen Zabala MD is Private Physician. am2 07:51 Shasha Guerra, RN is Primary Nurse. db 07:58 Triage completed. ap3 08:01 Arm band placed on right wrist. ap3 08:01 Patient has correct armband on for positive identification. Placed in gown. Bed in low ap3 position. Call light in reach. Side rails up X 1. Pulse ox on. NIBP on. Door closed. Noise minimized. 08:10 Inserted saline lock: 20 gauge in right antecubital area, using aseptic technique. db Blood collected. 08:57 CT Abd/Pelvis - IV Contrast Only In Process Unspecified. EDMS 11:51 No provider procedures requiring assistance completed. IV discontinued, intact, db bleeding controlled, No redness/swelling at site. Administered Medications: No medications were administered Medication: 09:13 VIS not applicable for this client. db Outcome: 09:21 Discharge ordered by . rn 11:51 Discharged to home ambulatory. db 11:51 Condition: stable 11:51 Discharge instructions given to patient, Instructed on discharge instructions, follow up and referral plans. Demonstrated understanding of follow-up care. 11:53 Patient left the ED. db Signatures: Dispatcher [employer] EDMS Serjio Montenegro MD MD rn Moreno, Amanda am2 Sera Little RN RN ap3 Shasha Guerra, RN RN db
--- NOTE | 2022-04-16 09:21 | EDPHYS ---
Physician Documentation [facility] Name: Kenia Recinos Age: 56 yrs Sex: Female : 1965 Arrival Date: 04/16/2022 Time: 07:46 Bed 13 Private MD: Stephen Zabala E ED Physician Serjio Montenegro HPI: 04/16 08:33 This 56 yrs old Female presents to ER via Ambulatory with complaints of Abdominal Pain rn - LLQ. 08:33 The patient presents with abdominal pain in the left lower quadrant. Onset: The rn symptoms/episode began/occurred yesterday. The symptoms do not radiate. Associated signs and symptoms: Pertinent positives: diarrhea, nausea, Pertinent negatives: blood in stools, fever, vomiting. The symptoms are described as intermittent, sharp. Modifying factors: The symptoms are alleviated by nothing, the symptoms are aggravated by touching the area. Severity of pain: At its worst the pain was moderate in the emergency department the pain has improved. The patient has not experienced similar symptoms in the past. The patient has not recently seen a physician. Pt reports LLQ abd pain with non-bloody diarrhea/loose stool x 3 episodes since yesterday. No fever. REports taking care of family member who has cdiff. . Historical: - Allergies: 07:58 Biaxin; ap3 - Home Meds: 07:58 phentermine oral [Active]; ap3 - PMHx: 07:58 hernia repair; gastric bypass; skin cancer; RASHAWN knee repair; ap3 - Immunization history:: Client reports receiving the 2nd dose of the Covid vaccine. - Social history:: Smoking status: Patient denies any tobacco usage or history of. - Family history:: not pertinent. - Hospitalizations: : No recent hospitalization is reported. ROS: 08:33 Constitutional: Negative for fever, chills, and weight loss, Eyes: Negative for injury, rn pain, redness, and discharge, Neck: Negative for injury, pain, and swelling, Cardiovascular: Negative for chest pain, palpitations, and edema, Respiratory: Negative for shortness of breath, cough, wheezing, and pleuritic chest pain, Abdomen/GI: + LLQ abd pain and diarrhea Back: Negative for injury and pain, MS/Extremity: Negative for injury and deformity, Skin: Negative for injury, rash, and discoloration, Neuro: Negative for headache, weakness, numbness, tingling, and seizure. Exam: 08:33 Constitutional: This is a well developed, well nourished patient who is awake, alert, rn and in no acute distress. Head/Face: Normocephalic, atraumatic. Cardiovascular: Regular rate and rhythm. No pulse deficits. Respiratory: No increased work of breathing, no retractions or nasal flaring. Abdomen/GI: soft, + mild LLQ tenderness, no rebound, no masses Skin: Warm, dry MS/ Extremity: Pulses equal, no cyanosis. Neuro: Awake and alert, GCS 15 Vital Signs: 07:57 BP 142 / 67; Pulse 72; Resp 18; Temp 97.2; Pulse Ox 100% ; Weight 95.25 kg; Height 5 ap3 ft. 7 in. (170.18 cm); 09:00 BP 109 / 92; Pulse 64; Resp 18; Pulse Ox 100% on R/A; db 11:50 BP 108 / 88; Pulse 66; Resp 18; Pulse Ox 100% on R/A; db 07:57 Body Mass Index 32.89 (95.25 kg, 170.18 cm) ap3 MDM: 07:46 Patient medically screened. rn 09:16 Differential diagnosis: appendicitis, diverticulitis, gastritis, non-specific abd pain, rn Ureterolithiasis, urinary tract infection, diverticulosis, colitis, cdiff colitis. Data reviewed: vital signs, nurses notes, lab test result(s), radiologic studies, CT scan, and as a result, I will discharge patient. I considered the following discharge prescriptions or medication management in the emergency department I discussed and recommended Over The Counter medications, Antibiotics: At this time antibiotics are not recommended, Antivirals: At this time, antivirals are not recommended. Counseling: I had a detailed discussion with the patient and/or guardian regarding: the historical points, exam findings, and any diagnostic results supporting the discharge/admit diagnosis, lab results, radiology results, the need for outpatient follow up, to return to the emergency department if symptoms worsen or persist or if there are any questions or concerns that arise at home. Response to treatment: the patient's symptoms have mildly improved after treatment, and as a result, I will discharge patient. Special discussion: Based on the patient's Hx, exam, and Dx evaluation, there is no indication for emergent surgery or inpatient Tx. It is understood by the patient/guardian that if the Sx's persist or worsen they need to return immediately for re-evaluation. I discussed with the patient/guardian in detail that at this point there is no indication for admission to the hospital. It is understood, however, that if the symptoms persist or worsen the patient needs to return immediately for re-evaluation. ED course: NO acute findings in blood or CT abdomen, will dc home. Cdiff and stool culture ordered, will have to be contacted if returns positive. Patient understands this as well as return precautions. . 04/16 07:56 Order name: CBC with Diff; Complete Time: 09:15 rn 04/16 07:56 Order name: CMP; Complete Time: 09:15 rn 04/16 07:56 Order name: Lipase; Complete Time: 09:15 rn 04/16 08:25 Order name: Urine Dipstick-Ancillary; Complete Time: 09:15 EDTN 04/16 07:56 Order name: CT Abd/Pelvis - IV Contrast Only; Complete Time: 09:15 rn 04/16 07:56 Order name: IV Saline Lock; Complete Time: 08:41 rn 04/16 07:56 Order name: Labs collected and sent; Complete Time: 08:41 rn 04/16 07:56 Order name: Urine Dipstick-Ancillary (obtain specimen); Complete Time: 08:41 rn Administered Medications: No medications were administered Disposition Summary: 04/16/22 09:21 Discharge Ordered Location: Home rn Problem: new rn Symptoms: have improved rn Condition: Stable rn Diagnosis - Lower abdominal pain, unspecified rn - Diarrhea, unspecified rn Followup: rn - With: Private Physician - When: As needed - Reason: Recheck today's complaints, Re-evaluation by your physician Discharge Instructions: - Discharge Summary Sheet rn - Abdominal Pain, Adult rn - Diarrhea, Adult rn Forms: - Medication Reconciliation Form rn - Thank You Letter rn - Antibiotic rn practitioner - Prescription Opioid Use rn Signatures: Dispatcher [employer] Serjio Mckenzie MD MD rn Prokisch, Amanda, RN RN ap3
[2022-04-16 12:11] VITALS: TEMP 97.2; O2SAT 100
[2022-04-16 12:18] VITALS: BP 108/88
== END 2022-04-16 11:53 | disposition home or self-care (01) ==
LOC: ER 07:39
DX: R19.7 Diarrhea, unspecified (principal); Z88.1 Allergy status to other antibiotic agents
CPT/HCPCS: 85025; 36415; 81003; 83690; 80053; 74177; Q9967

== ENCOUNTER → 2023-03-17 | Emergency (ER) | payer MEDICARE ==
[~2023-03-17] MED LIST: DIPHENHYDRAMINE 50 MG/ML VIAL ONE; METHYLPREDNISOLONE 125 MG INJ ONE; NA CHLORIDE 0.9% 1,000 ML ONE
[2023-03-17 04:06] LABS: Absolute Lymphocytes (CBC) 1.3 K/uL (0.7-4.9); Lymphocytes % 15.6 % (15.3-44.8); MCV 86.9 fL (80-100); Platelets 230 thou/uL (152-406); RBC Red Blood Cell Count 4.71 M/uL (3.86-4.86)
[2023-03-17 04:24] LABS: Albumin 3.3 g/dL (3.4-5.0); Bilirubin Total 0.5 mg/dL (0.2-1.0); Potassium 4.2 mEq/L (3.5-5.1); Protein, Total 6.6 g/dL (6.4-8.2)
--- NOTE | 2023-03-17 05:09 | EDPHYS ---
Physician Documentation [facility] Name: Kenia Recinos Age: 57 yrs Sex: Female : 1965 Arrival Date: 03/17/2023 Time: 03:08 Bed 8 Private MD: ED Physician Priyank Soto HPI: 03/17 03:32 This 57 yrs old Female presents to ER via Ambulatory with complaints of Rash. ec2 03:32 Patient arrives today due to concern for rash. Patient reports has been experiencing a ec2 rash on the inner abdomen and chest ongoing since yesterday. Patient reports that she also feels some lightheadedness. Patient reports no difficulty breathing or facial swelling. Patient reports that she had recently submitted surgeon that may be contributing to this. Patient reports no recent cough and cold symptoms.. Historical: - Allergies: 03:42 Biaxin; pf1 - PMHx: 03:42 RASHAWN knee repair; gastric bypass; hernia repair; skin cancer; Ulcer; Diverticulitis; pf1 Gastroesophageal reflux disease; - PSHx: 03:42 Total abdominal hysterectomy; pf1 - Immunization history:: Adult Immunizations up to date, Last tetanus immunization: < 10 years ago Flu vaccine is up to date. - Social history:: Smoking status: Patient denies any tobacco usage or history of. Patient/guardian denies using alcohol, street drugs. ROS: 03:32 Constitutional: as per hpi ec2 Exam: 03:32 Constitutional: GEN: NAD Head: atraumatic Eyes: EOMI Ears: External ears are normal. ec2 Oropharynx: No swelling appreciated. No stridor noted. CV: regular rate LUNGS: no respiratory distress, no wheezes, no rales, no rhonchi ABD: non-distended SKIN: Diffuse urticarial rash noted on the trunk MSK: no evidence of trauma NEURO: moves all extremities equally Vital Signs: 03:18 Pulse 89; Resp 18; Temp 97.9; Pulse Ox 100% on R/A; Weight 104.33 kg; Height 5 ft. 7 pf1 in. ; 03:30 BP 108 / 69; Pulse 74; Resp 17 S; Pulse Ox 100% on R/A; ha1 04:23 BP 96 / 70; Pulse 75; Resp 17 S; Pulse Ox 100% on R/A; ha1 04:53 BP 121 / 71; Pulse 73; ec2 05:22 BP 121 / 71; Pulse 72; Resp 17 S; Pulse Ox 100% on R/A; ha1 03:18 Body Mass Index 36.02 (104.33 kg, 170.18 cm) pf1 MDM: 03:31 Patient medically screened. ec2 03:32 Data reviewed: vital signs, nurses notes. ED course: Patient arrives today for ec2 evaluation of rash. Examination remarkable for well-appearing nontoxic individual is otherwise in no acute distress who has a urticarial rash noted throughout. No evidence of airway involvement, will obtain lab work, EKG given the patient's reported lightheadedness, give her crystalloid and steroids. Suspect allergic reaction versus viral infection, low suspicion for electrolyte disturbance or arrhythmia. . 03:47 ED course: EKG independently reviewed and interpreted by me, shows normal sinus rhythm, ec2 rate of 71, no acute ST segment elevations, intervals are nonconcerning.. 04:41 ED course: CBC is reassuring, metabolic profile with appropriate electrolytes and renal ec2 function. . 05:07 ED course: On reassessment patient with stable blood pressures, improving symptoms, ec2 ambulatory without issue. Will discharge home. Return precautions given. Will start on steroid for allergic reaction.. 12 03:31 Order name: CBC with Diff; Complete Time: 04:41 ec2 03/17 03:31 Order name: CMP; Complete Time: 04:41 ec2 03/17 03:31 Order name: EKG; Complete Time: 03:32 ec2 03/17 03:31 Order name: EKG - Nurse/Tech; Complete Time: 04:03 ec2 Administered Medications: 04:03 Drug: NS 0.9% IV 1000 ml IV at 1 bolus Per protocol; 1000 mL bolus Route: IV; Rate: 1 km8 bolus; Site: left wrist; 05:23 Follow up: Response: No adverse reaction; IV Status: Completed infusion; IV Intake: ha1 1000ml 04:04 Drug: diphenhydrAMINE IVP 25 mg IVP once Route: IVP; Site: left wrist; km8 04:28 Follow up: Response: No adverse reaction; Marked relief of symptoms ha1 04:04 Drug: MethylPrednisoLONE IVP 125 mg IVP once Route: IVP; Site: left wrist; km8 04:27 Follow up: Response: No adverse reaction ha1 Disposition Summary: 03/17/23 05:08 Discharge Ordered Notes: Location: Home ec2 Condition: Stable ec2 Diagnosis - Allergic urticaria ec2 Followup: ec2 - With: Private Physician - When: - Reason: Re-evaluation by your physician Discharge Instructions: - Discharge Summary Sheet ec2 - Hives ec2 Forms: - Medication Reconciliation Form ec2 - Thank You Letter ec2 - Antibiotic Education ec2 - Prescription Opioid Use ec2 - Patient Portal Instructions ec2 - Leadership Thank You Letter ec2 Prescriptions: - Prednisone 20 mg Oral Tablet - take 2 tablets ORAL route once daily for 5 days; 10 tablet; Refills: 0, Product ec2 Selection Permitted Signatures: Dispatcher [employer] Reyna Emmanuel RN RN pf1 Priyank Soto MD MD 2 Ellie Tomlinson RN RN km8 Betzaida Cowart RN ha1
--- NOTE | 2023-03-17 05:09 | ER ---
Nurse's Notes [facility] Name: Kenia Recinos Age: 57 yrs Sex: Female : 1965 Arrival Date: 03/17/2023 Time: 03:08 Bed 8 Private MD: Diagnosis: Allergic urticaria Presentation: 03/17 03:18 Chief complaint: Patient states: generalized rash/hives with itching,onset yesterday. pf1 Patient stated has come in contact with a new detergent. Patient stated took Benadryl 50mg at 2000 and at 0000. Patient also C/O vomiting for 2 days with diarrhea for 1 week. Patient stated is currently taking 3 antibiotics for H-Pylori. Coronavirus screen: Vaccine status: Client denies travel out of the [place] in the last 14 days. At this time, the client does not indicate any symptoms associated with coronavirus-19. Ebola Screen: Patient negative for fever greater than or equal to 101.5 degrees Fahrenheit, and additional compatible Ebola Virus Disease symptoms. 03:18 Method Of Arrival: Ambulatory pf1 03:40 Initial Sepsis Screen: Does the patient meet any 2 criteria? No. Patient's initial pf1 sepsis screen is negative. Does the patient have a suspected source of infection? No. Patient's initial sepsis screen is negative. Risk Assessment: Do you want to hurt yourself or someone else? Patient reports no desire to harm self or others. 03:40 Acuity: JAMEEL 3 pf1 05:21 Onset of symptoms was March 16, 2023. ha1 Historical: - Allergies: 03:42 Biaxin; pf1 - PMHx: 03:42 RASHAWN knee repair; gastric bypass; hernia repair; skin cancer; Ulcer; Diverticulitis; pf1 Gastroesophageal reflux disease; - PSHx: 03:42 Total abdominal hysterectomy; pf1 - Immunization history:: Adult Immunizations up to date, Last tetanus immunization: < 10 years ago Flu vaccine is up to date. - Social history:: Smoking status: Patient denies any tobacco usage or history of. Patient/guardian denies using alcohol, street drugs. Screenin:05 [facility] ED Fall Risk Assessment (Adult) History of falling in the last 3 months, km8 including since admission No falls in past 3 months (0 pts) Confusion or Disorientation No (0 pts) Intoxicated or Sedated No (0 pts) Impaired Gait No (0 pts) Mobility Assist Device Used No (0 pt) Altered Elimination No (0 pt) Score/Fall Risk Level 0 - 2 = Low Risk Oriented to surroundings, Maintained a safe environment, Educated pt \T\ family on fall prevention, incl call for assistance when getting out of bed, Assessed \T\ reinforced patient's understanding of fall precautions. Abuse screen: Denies threats or abuse. Denies injuries from another. Nutritional screening: No deficits noted. Tuberculosis screening: No symptoms or risk factors identified. Assessment: 03:24 General: Appears uncomfortable, Behavior is cooperative. Pain: Denies pain. Neuro: ha1 Level of Consciousness is awake, alert, obeys commands, Oriented to person, place, time, situation. Cardiovascular: Capillary refill. Respiratory: Airway is patent Respiratory effort is even, unlabored, Respiratory pattern is regular, symmetrical. GI: No signs and/or symptoms were reported involving the gastrointestinal system. Derm: Rash noted that is itchy, raised, urticaria, Reports itchiness. Musculoskeletal: Circulation, motion, and sensation intact. Range of motion: intact in all extremities. 04:27 Reassessment: Patient and/or family updated on plan of care and expected duration. Pain ha1 level reassessed. Patient is alert, oriented x 3, equal unlabored respirations, skin warm/dry/pink. Patient states feeling better. Patient states symptoms have improved. Vital Signs: 03:18 Pulse 89; Resp 18; Temp 97.9; Pulse Ox 100% on R/A; Weight 104.33 kg; Height 5 ft. 7 pf1 in. ; 03:30 BP 108 / 69; Pulse 74; Resp 17 S; Pulse Ox 100% on R/A; ha1 04:23 BP 96 / 70; Pulse 75; Resp 17 S; Pulse Ox 100% on R/A; ha1 04:53 BP 121 / 71; Pulse 73; ec2 05:22 BP 121 / 71; Pulse 72; Resp 17 S; Pulse Ox 100% on R/A; ha1 03:18 Body Mass Index 36.02 (104.33 kg, 170.18 cm) pf1 ED Course: 03:11 Patient arrived in ED. ag3 03:20 Priyank Soto MD is Attending Physician. ec2 03:24 Arm band placed on right wrist. ha1 03:42 Triage completed. pf1 03:58 Inserted saline lock: 22 gauge in left wrist, using aseptic technique. Blood collected. km8 04:04 Patient has correct armband on for positive identification. Bed in low position. Call km8 light in reach. Side rails up X2. Client placed on continuous cardiac and pulse oximetry monitoring. NIBP monitoring applied. 04:05 No provider procedures requiring assistance completed. Patient maintains SpO2 km8 saturation greater than 95% on room air. 05:17 IV discontinued, intact, bleeding controlled, No redness/swelling at site. Pressure ha1 dressing applied. 05:21 Provided Education on: MEDICATION ADMINISTRATION AND FOLLOW UPS WITH PCP. ha1 Administered Medications: 04:03 Drug: NS 0.9% IV 1000 ml IV at 1 bolus Per protocol; 1000 mL bolus Route: IV; Rate: 1 km8 bolus; Site: left wrist; 05:23 Follow up: Response: No adverse reaction; IV Status: Completed infusion; IV Intake: ha1 1000ml 04:04 Drug: diphenhydrAMINE IVP 25 mg IVP once Route: IVP; Site: left wrist; km8 04:28 Follow up: Response: No adverse reaction; Marked relief of symptoms ha1 04:04 Drug: MethylPrednisoLONE IVP 125 mg IVP once Route: IVP; Site: left wrist; km8 04:27 Follow up: Response: No adverse reaction ha1 Medication: 04:05 VIS not applicable for this client. km8 Intake: 05:23 IV: 1000ml; Total: 1000ml. ha1 Outcome: 05:08 Discharge ordered by . ec2 05:17 Discharged to home ambulatory, ha1 05:17 Condition: stable 05:17 Discharge instructions given to patient, Instructed on discharge instructions, follow up and referral plans. medication usage, Demonstrated understanding of instructions, follow-up care, medications, Prescriptions given X 1, 05:22 Patient left the ED. ha1 Signatures: Clara Keating 3 Betzaida Cowart RN RN ha1 Reyna Zee RN RN pf1 Priyank Soto MD MD ec2 Ellie Tomlinson RN RN km8 Corrections: (The following items were deleted from the chart) 03:42 03:18 Chief complaint: Patient states: generalized rash/hives with itching,onset pf1 yesterday. Patient stated has come in contact with a new detergent. Patient stated took Benadryl 50mg at 2000 and at 0000. pf1
[2023-03-17 06:20] VITALS: TEMP 97.9; O2SAT 100
[2023-03-17 06:33] VITALS: BP 121/71
== END ==
LOC: ER 03:08
DX: L50.0 Allergic urticaria (principal); Z88.6 Allergy status to analgesic agent
CPT/HCPCS: 96361; 93005; 85025; 36415; 80053; 96375; 96374; 99285; J1200; J2930; J7030

== ENCOUNTER 2023-11-14 06:17 | Day surgery (SDC) | payer MEDICARE ==
[2023-11-11 13:34] LABS: Absolute Eosinophils 0.1 K/uL (0-0.5); Absolute Lymphocytes (CBC) 1.7 K/uL (0.7-4.9); Absolute Monocytes 0.3 K/uL (0.1-1.3); Absolute Neutrophil 3.7 K/uL (1.8-8.0); Basophils % 0.8 % (0-1.3); Eosinophils % 2.3 % (0-4.4); Hematocrit 38.5 % (36.0-45.0); Hemoglobin 12.7 g/dL (12.0-15.0); Lymphocytes % 28.3 % (15.3-44.8); MCH 29.6 pg (27.0-35.0); MCV 89.7 fL (80-100); MPV 9.2 fL (7.6-11.3); Monocytes % 5.9 % (3.3-12.3); Neutrophils % 62.7 % (41.7-73.7); Platelets 206 thou/uL (152-406); RBC Red Blood Cell Count 4.29 M/uL (3.86-4.86)
[2023-11-11 13:48] LABS: Anion Gap 6.1 mEq/L (5.0-15.0); Potassium 4.1 mEq/L (3.5-5.1)
--- NOTE | 2023-11-12 12:42 | EKG ---
Test Date: 2023-11-11 Test Time: 12:47:26 Content Development Specialist: REA MEASUREMENT RESULTS: Intervals: Rate: 64 MT: 136 QRSD: 84 QT: 416 QTc: 429 [place]: P: 61 MT: 136 QRS: 25 T: 103 INTERPRETIVE STATEMENTS: Normal sinus rhythm Low voltage QRS Abnormal QRS-T angle, consider primary T wave abnormality Abnormal ECG Compared to ECG 03/17/2023 03:40:27 Low QRS voltage now present T-wave abnormality now present Myocardial infarct finding no longer present Electronically Signed On 11-12-23 12:38:49 CDT by Bonifacio Jimenez
[2023-11-14] MEDS ORDERED: CEFAZOLIN SODIUM 1 GM/VIAL ONE (06:31)
[2023-11-14] MEDS ORDERED: SCOPOLAMINE HYDROBROMIDE PATCH TD ONE (06:33)
[2023-11-14] MEDS: Ringers Lactate 1,000 ML IV ONE (06:40)
[2023-11-14] MEDS ORDERED: propofoL 200 MG/20 ML VIAL IV ONE (07:14)
[2023-11-14] MEDS ORDERED: ONDANSETRON 4 MG/2 ML VIAL ONE (07:14)
[2023-11-14] MEDS ORDERED: LIDOCAINE 1% MPF 5 ML VIAL ONE (07:14)
[2023-11-14] MEDS ORDERED: FENTANYL CITR 100 MCG/2 ML ONE (07:14)
[2023-11-14] MEDS ORDERED: MIDAZOLAM HCL 2 MG/2 ML INJ ONE (07:14)
[2023-11-14] MEDS ORDERED: ROCURONIUM 50 MG/5 ML VIAL IV ONE (07:14)
[2023-11-14] MEDS: CEFAZOLIN SODIUM 2 GM/VIAL ONE (08:05)
[2023-11-14] MEDS: LIDOCAINE HCL/EPINEPHRINE 20 ML MDV ONE (08:15)
[2023-11-14] MEDS ORDERED: LIDOCAINE HCL/EPINEPHRINE 20 ML MDV ONE (09:17)
--- NOTE | 2023-11-14 10:03 | RAD REPORT ---
EXAM DESCRIPTION: RAD - Fluoroscopy <1 Hour - 11/14/2023 9:57 am CLINICAL HISTORY: SACRAL NEURO MOD 1 2 COMPARISON: BREAST/AXILLA, LIMITED dated 01/14/2015 FINDINGS: Fluoroscopy time: 0.6 minutes
[2023-11-14 10:38] VITALS: BP 135/77; TEMP 97.7; O2SAT 98
--- NOTE | 2023-11-14 11:00 | OP ---
Date of Procedure: 11/14/2023 Surgeon: Sandra Hathaway MD Guest Room Attendant: No assistants. Preoperative Diagnoses: Refractory overactive bladder, urge urinary incontinence. Postoperative Diagnoses: Refractory overactive bladder, urge urinary incontinence. Procedures Performed: Complete InterStim System implantation with incision and implantation of tined quadripolar lead electrodes into S6 foramen with fluoroscopic guidance for needle placement, subcuta neous implantation of sacral nerve neurostimulator, and electronic analysis and programming. Specimens: No specimens. Complications: No complications. Drains: No drains. Anesthesia: General endotracheal. Estimated Blood Loss: Minimal. Patient Condition: Stable. Findings: S6 foramen was used. All 4 leads had good response with Yolande and toes, lead 3 being th e slightly weaker of before, but significantly positive pocket on the right buttock. Indications: The patient is a 58-year-old female with urge urinary incontinence, frequency, and urge ncy significantly affected by this impaired lifestyle. She has tried medications and first-line ther apies including time voiding, avoiding irritants. After full evaluation with cystoscopy, urodynamics , no bladder tumors, and she has no voiding dysfunction. Once this is all not adequate for the patie nt to have a significant improvement in her incontinence, discussed about third-line therapies includ ing InterStim and Botox. The patient prefers to have the neurostimulator, so a trial of office percu taneous nerve evaluation was performed and she had greater than 50% response in her reduction of urge ncy, frequency, and incontinence episodes. Procedure In Detail: After removing the lead in the office and counseling her about the full system implant benefits and risks of it including the mechanism of action and expected success and failure, she was consented and brought to the OR. She was re-consented in the preop and taken back to the OR, placed in supine fashion on the operating table. On the bed, general anesthesia was given after int ubation. She was then properly identified and then placed in a prone position by the OR protocol ont o the OR table. Pillows were placed under her lower abdomen to flatten the sacrum and under the maddox s to allow the toes to dangle freely. The patient was prepped and draped in the usual sterile fashio n using Betadine solution. The C-arm was then draped and moved into the AP position for fluoroscopic mapping of the sacral region including marking of the midline of the sacrum, SI joints, sciatic notc hes, medial foraminal borders, and sacral foramina. Surface markings were also made and identified a t 9 cm, 10, 11, and 12 and 1.5 and 2 cm lateral to the midline. A 1% lidocaine with epinephrine was injected on the right side. The patient was tested on the right side and had significant improvement and preferred to start on this. The foramen needle was then taken and introduced approximately 2 cm above the 9 cm nohemy. However, as this was too low on fluoroscopy to get the S3, I moved up another cm and started 2 cm lateral to the midline. A safe remnant was identified and penetrated. The depth of the foramen needle was confirm ed and adjusted fluoroscopically. The proper needle position was confirmed by identification of kashif r function with plantar flexion of the great toe and bellowing of the perineum. There was a good res ponse at both sides using the external test stimulator. Then the foramen needle stylet was removed. Directional guide was placed and confirmed fluoroscopica lly. Once the needle was removed, the incision was made peripheral to the guide through the fascial layer and the lead introducer sheath with a dilator were placed over the guide into the foramen to en sure that the radiopaque marker of the introducer to not extend beyond the anterior edge of the sacru m. The dilator was then unlocked and removed with the directional guide. The lead was then placed t hrough the introducer sheath to the first white line and then position was checked and it was further advanced and adjusted until the 3 electrodes were visible below the sacrum and each electrode was te sted for location of Yolande and plantar flexion of the toe. Once there was excellent response at al l 4 electrodes, the last electrode which is #3 being the lesser motor affect of the 4, satisfactory p ositioning was confirmed on both AP and lateral positions using the fluoro and under continuous fluor oscopy, the introducer sheath was retracted deploying the tined leads into the presacral tissue and t hen the sheath and the guidewire were all removed. Further incision was made in subcutaneous tissues, posterior to the iliac crest lateral to the sacrum . The pocket side 5 cm marked on the surface, injected with lidocaine. A 15 blade was used to make the skin incision. Bovie was used to dissect the angina, half or 1 inch below the skin surface. A p ocket was made using the Bovie, irrigated with sterile water and antibiotic solution. The tunneling tool with straw was placed from the lead exit site subcutaneously to the incised pocket site and the tunneling tool was removed and the lead was fed through the straw and pulled out the po cket side. The lead was then cleansed off bodily fluids and dried. It was inserted into the neurost imulator header and the metal bands were aligned with the blue tip clearly visible in the distal port ion of the neurostimulator. The single set screw was tightened with a hex wrench. The neurostimulator was then placed in a subcutaneous pocket with the etched identification side up a nd the lead wire wrapped around in an anti-clockwise direction. The programming head was then placed over the implanted neurostimulator in a sterile cover to ensure adequate lead connection and that th e parameters were within normal limits. Impedances were confirmed to be within normal limits and the wound was further irrigated and subcutaneous sutures x3 with 3-0 Vicryl and subcuticular running sut ures with 4-0 Monocryl. Steri-Strips placed and bandaged sterilely in a sterile fashion. Counts wer e correct. EBL was minimal. Side of the lead was also closed with interrupted 4-0 Monocryl. The pa tient was transferred to the recovery room in stable condition. Clinician web programmer used for programming. The patient will be seen in 3 weeks po stop. COLLEEN/TORI Voice ID: [id number] Report ID: [id number]
== END 2023-11-14 10:25 | disposition home or self-care (01) ==
LOC: OR 06:17
PROVIDERS: ATTEND Obstetrics & Gynecology
PROC: 01HY3MZ Insertion of Neurostimulator Lead into Peripheral Nerve, Percutaneous Approach (ICD-10-PCS; principal; 2023-11-14 07:30)
PROC: 0JH73BZ Insertion of Single Array Stimulator Generator into Back Subcutaneous Tissue and Fascia, Percutaneous Approach (ICD-10-PCS; 2023-11-14 07:30)
DX: N39.41 Urge incontinence (principal); N32.81 Overactive bladder
CPT/HCPCS: 64561; 64590; 93005; 85025; 80048; 36415; J2704; J2001; J2250; J3010; J2405; J7120; J0690; C1778; C1767; 76000